=== PATIENT | female | born 1940 | race Caucasian/White ===

== ENCOUNTER 2019-09-04 09:00 | Outpatient (RCR) | payer MEDICARE, SELFPAY ==
--- NOTE | 2019-08-08 11:07 | PTOPEVAL ---
PHYSICAL THERAPY EVALUATION AND PLAN OF CARE 08-08-2019 The PT evaluation was completed today and the plan of treatment is for 1x/week for 4 weeks. Thank you for referring Mrs. Pineda to [facility]. Please review, sign, date and return this plan of care JOVANNI. I agree with and certify that the following plan of care is medically necessary. Referring Physician Date Attending Provider: Nila Sofia MD *PT Outpatient Evaluation Start: 08/08/19 09:58 Document 08/08/19 09:50 KETAN (Rec: 08/08/19 11:01 KETAN [id number]) Outpatient Past Medical History Neurological History Hx Alzheimer's Disease Yes Cardiovascular History Hx Hypertension Yes Respiratory History Hx Bronchitis Yes Hx Pneumonia Yes Gastrointestinal History Hx Appendectomy Yes Hx Cholecystectomy Yes Hx Gastroesophageal Reflux Disease Yes Genitourinary History Hx Genitourinary Disorders No Significant History Musculoskeletal History Hx Arthritis Yes: R hip- cortisone shot Hx Fractures Yes: L wrist Hx Orthopedic Surgery Yes: L wrist Hematological History Hx Blood Transfusions Yes Endocrine History Hx Endocrine Disorders No Significant History HEENT History Hx Cataracts Yes Reproductive History Hx Section Yes: x6 Hx Hysterectomy Yes Psychosocial History Hx Depression Yes Pain History History of Any Previous or Ongoing No Significant History Instance of Pain Anesthesia History Hx Anesthesia Reactions No Significant History Other History Hx Cancer Yes: R breast 2005 Hx Radiation Therapy Yes Hx Other Medical Conditions Yes: recent hospitalization for 5 days Evaluation Information Problem Diagnosis gait and imbalance Onset January 2019 Subjective Information gradual problems with balance; Query Text:As Reported By Patient/ no falls; off balance when Family try to stand up from sitting; Previous Treatments Previous Treatments For This Problem no PT treatments Prior Level of Function Activity Level (Last 3 Months) Occupation retired Hand Dominance Right Activity of Daily Living Ability Needs Some Help Indoor/Home Mobility Independent Community Mobility Needs Some Help Stairs Ability Independent Functional Cognition (Planning, Shopping Needs Some Help , Taking Medications) Cooking No Cleaning No Laundry No Shopping No Driving
--- NOTE | 2019-09-04 09:35 | PTOPEVAL ---
PHYSICAL THERAPY DISCHARGE 09-04-2019 Mrs. Pineda has received 5 PT treatments from August 08 to today, for the diagnosis of gait abnormality and weakness. Compared to the initial evaluation, she has improved with: [place] balance score, LE strength, sit/stand transfer, stand/floor transfer, stair ability and education completed for home exercises. The goals were achieved, except single leg standing tolerance on R and L LE's. She continues to use the scooter for distances due to low back pain. Thank you for referring Theodora to [facility]. Please review, sign, date and return this discharge JOVANNI. I agree with and certify that the following plan of care is medically necessary. Referring Physician Date Attending Provider: Nila Sofia MD Document 09/04/19 09:12 KETAN (Rec: 09/04/19 09:35 KETAN [id number]) Assessment Status Discharge Subjective Information Theodora reports: balance is Query Text:As Reported By Patient/ better; no falls; have been Family having some headaches; have been using the scooter in the stores due to back pain; reports he feels she is ready for discharge from PT services; Pain Assessment Timing of Pain Assessment Timing of Pain Assessment Assessment Pain Scale Pain Scale Used Numeric (1 - 10) Self Report Pain Assessment Bilateral Back Reported Pain Level 0 Pain Score Pain Score 0: Self Report Lower Extremity Muscle Strength Testing General Lower Extremity Strength Gross Lower Extremity Strength standing with 1 UE hold x 20 reps: B PF and small squats; R and L hip abduction, SLS R 2 sec/L 6 seconds; Transfer Assessment Floor Transfer Assessment Stand to Floor Transfer Ability Standby Assistance Floor to Stand Transfer Ability Standby Assistance Cues Needed for Floor Transfer None Floor Transfer Comments use of B UE on mat to assist Balance Assessment [place] Balance Assessment Sitting to Standing Independent w/out Hands Unsupported Stance Ability Safely- 2 minutes Sitting Unsupported, Feet on Floor Safely- 2 minutes Standing to Sitting Safely, Minimal Hand Use Transfer Ability Safely, Minimal Hand Use Unsupported Stance- Eyes Closed Safely, 10 seconds Unsupported Stance- Feet Together Independent, 1 minute Reaching Forward while Standing Confidently, 10 inches supervisor rough end Object From Floor Independent/Safe Look Behind Shoulder - Standing Shifts Weight Well Turning 360 Degrees Turns Bilateral, < 4 secs Unsupported Stance, Alternating Feet on (I)- 8 Steps in 20 secs Stair Unsupported Tandem Stance Small Step- 30 seconds Unilateral Leg Stance Lifts Leg/Unable to Hold COLUNGA Balance Evalu
== END 2019-09-04 11:07 | disposition home or self-care (01) ==
LOC: ANHPT 09:00
PROVIDERS: PCP Family Medicine; Visit Provider Family Medicine
DX: R26.89 Other abnormalities of gait and mobility (principal); R53.81 Other malaise; J11.00 Influenza due to unidentified influenza virus with unspecified type of pneumonia
CPT/HCPCS: 97110; 97161

== ENCOUNTER 2019-11-11 09:24 | Outpatient (CLI) | payer MEDICARE, SELFPAY ==
--- NOTE | ~2019-11-11 | MM_ITS ---
EXAMINATION: MM screening [facility] BI w victoria HISTORY: Screening mammogram TECHNIQUE: Craniocaudal and mediolateral oblique 3-D tomosynthesis images were obtained and synthetic 2-D images were generated. CAD analysis was submitted and interpreted. COMPARISON: Comparison to multiple prior studies sequentially, with oldest reviewed study dated 03/2013. BREAST PARENCHYMAL COMPOSITION: There are scattered areas of fibroglandular density. FINDINGS: Stable architectural distortion in the upper inner quadrant of the right breast from previo us lumpectomy. There is no evidence of suspicious mass, calcification, or architectural distortion to suggest malignancy in either breast. There has been no suspicious interval change. IMPRESSION: 1. No mammographic evidence of malignancy. 2. Recommend routine screening mammography in one year. BI-RADS Category 2: Benign finding(s). Reviewed, dictated and finalized at location A.
== END 2019-11-11 09:25 | disposition home or self-care (01) ==
PROVIDERS: PCP Family Medicine; Visit Provider Family Medicine
DX: Z12.31 Encounter for screening mammogram for malignant neoplasm of breast (principal)
CPT/HCPCS: 77063; 77067

== ENCOUNTER 2020-04-09 08:21 | Outpatient (CLI) | payer MEDICARE, SELFPAY ==
[2020-04-09 08:43] LABS: Basophils Absolute Auto 0.1 K/mm3 (0.0-0.1); Basophils Percent Auto 0.7 % (0.2-1.2); Eosinophils Absolute Auto 0.2 K/mm3 (0-0.3); Eosinophils Percent Auto 1.6 % (0-4.4); Immature Granulocyte Absolute 0.04 K/mm3 (0.00-0.031); Immature Granulocyte Percent A 0.4 % (0-0.5); Lymphocytes Absolute Auto 2.58 K/mm3 (0.9-3.2); Lymphocytes Percent Auto 26.7 % (18.3-44.2); Mean Corpuscular HGB Conc 33.3 g/dl (32-36); Mean Corpuscular Hemoglobin 30.6 pg (26-34); Mean Corpuscular Volume 91.8 fl (80-100); Mean Platelet Volume 8.8 fl (7.4-10.4); Monocytes Absolute Auto 0.7 K/mm3 (0.1-0.6); Monocytes Percent Auto 7.4 % (2.6-8.5); Neutrophils Absolute Auto 6.1 K/mm3 (1.3-6.7); Neutrophils Percent Auto 63.2 % (45.5-73.1); Platelet Count Result 271 k/mm3 (150-375); Red Blood Count 4.25 M/mm3 (4.2-5.4); Red Cell Distribution Width 13.2 % (11.5-14.5); White Blood Count 9.7 K/mm3 (4.5-10.0)
[2020-04-09 09:01] LABS: Alanine Aminotransferase 16 U/L (4-35); Albumin Level 4.4 g/dL (3.5-5.1); Alkaline Phosphatase 55 U/L (38-126); Anion Gap 11 mmol/L (8-16); Aspartate Amino Transferase 22 U/L (14-36); Bilirubin,Total 0.3 mg/dL (0.2-1.3); Blood Urea Nitrogen 19 mg/dL (7-17); Calcium 9.4 mg/dL (8.4-10.2); Carbon Dioxide 28 mmol/L (22-30); Chloride 104 mmol/L (98-107); Estimated Glomerular Filt Rate 40; Glucose 102 mg/dL (65-105); Potassium 3.4 mmol/L (3.4-5.0); Sodium 143 mmol/L (137-145)
[2020-04-09 11:00] LABS: Free T4 Free Thyroxine Reflex 0.91 ng/dL (0.78-2.19)
[2020-04-09 13:16] LABS: Total Triiodothyronine (T3) 1.21 NG/ML (0.97-1.69)
[2020-04-13 09:46] LABS: Vitamin D 1,25 (OH)2 Total 50 pg/mL (18-72); Vitamin D2 1,25 (OH)2 <8 pg/mL; Vitamin D3 1,25 (OH)2 50 pg/mL
== END 2020-04-09 08:22 | disposition home or self-care (01) ==
PROVIDERS: PCP Family Medicine; Visit Provider Physician Assistant
DX: I10 Essential (primary) hypertension (principal); R53.83 Other fatigue; L65.9 Nonscarring hair loss, unspecified; E55.9 Vitamin D deficiency, unspecified
CPT/HCPCS: 36415; 80053; 82652; 84439; 84443; 84480; 85025

== ENCOUNTER 2020-07-07 10:09 | Outpatient (CLI) | payer MEDICARE, SELFPAY ==
--- NOTE | ~2020-07-07 | XR_ITS ---
EXAMINATION: XR wrist RT w scaphoid DATE: 07/07/2020 10:30 INDICATION: Radial sided right wrist pain. TECHNIQUE: Posteroanterior, ulnar deviation,, scaphoid, oblique, and lateral views of the right wrist were obtained. COMPARISON: none FINDINGS: Alignment is normal. No fracture. Mild polyarticular osteoarthritis at the distal radioulnar, radioca rpal, triscaphe, first carpometacarpal, first interphalangeal and multiple metacarpophalangeal joints . Diffuse osteopenia. No cortical erosions or periosteal reaction. Soft tissues are unremarkable. IMPRESSION: 1. 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 No acute osseous abnormality. Reviewed, dictated and finalized at location A. 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 No acute osse ous abnormality.
[2020-07-07 11:00] LABS: Basophils Percent Auto 0.4 % (0.2-1.2); Eosinophils Percent Auto 0.3 % (0-4.4); Hematocrit 43.8 % (37.0-47.0); Immature Granulocyte Absolute 0.03 K/mm3 (0.00-0.031); Immature Granulocyte Percent A 0.3 % (0-0.5); Lymphocytes Absolute Auto 1.31 K/mm3 (0.9-3.2); Lymphocytes Percent Auto 14.7 % (18.3-44.2); Mean Corpuscular HGB Conc 34.2 g/dl (32-36); Mean Corpuscular Hemoglobin 29.8 pg (26-34); Mean Corpuscular Volume 86.9 fl (80-100); Mean Platelet Volume 8.4 fl (7.4-10.4); Monocytes Absolute Auto 0.5 K/mm3 (0.1-0.6); Monocytes Percent Auto 5.9 % (2.6-8.5); Neutrophils Percent Auto 78.4 % (45.5-73.1); Platelet Count Result 282 k/mm3 (150-375); Red Blood Count 5.04 M/mm3 (4.2-5.4); Red Cell Distribution Width 12.2 % (11.5-14.5); White Blood Count 8.9 K/mm3 (4.5-10.0)
[2020-07-07 11:15] LABS: Anion Gap 11 mmol/L (8-16); Blood Urea Nitrogen 16 mg/dL (7-17); Calcium 9.5 mg/dL (8.4-10.2); Carbon Dioxide 29 mmol/L (22-30); Chloride 100 mmol/L (98-107); Estimated Glomerular Filt Rate 43; Glucose 149 mg/dL (65-105); Potassium 3.2 mmol/L (3.4-5.0); Sodium 140 mmol/L (137-145); Uric Acid 4.7 mg/dL (2.5-7.5)
[2020-07-08 12:11] LABS: Total Triiodothyronine (T3) 1.24 NG/ML (0.97-1.69)
== END 2020-07-07 10:10 | disposition home or self-care (01) ==
LOC: ANHIMG 10:16
PROVIDERS: PCP Family Medicine; Referring Provider Nurse Practitioner Family; Visit Provider Physician Assistant
DX: M25.531 Pain in right wrist (principal); R11.0 Nausea; I10 Essential (primary) hypertension; M25.50 Pain in unspecified joint
CPT/HCPCS: 36415; 73110; 80048; 84443; 84480; 84550; 85025

== ENCOUNTER 2020-10-19 15:29 | Outpatient (CLI) | payer MEDICARE, SELFPAY | END 2020-10-19 15:30 | disposition home or self-care (01) | LOC: ANHCOVIDVC 15:29 | PROVIDERS: PCP Family Medicine | DX: Z23 Encounter for immunization (principal) | CPT/HCPCS: 0001A; 91300 ==

== ENCOUNTER 2020-11-09 15:29 | Outpatient (CLI) | payer MEDICARE, SELFPAY | END 2020-11-09 15:30 | disposition home or self-care (01) | LOC: ANHCOVIDVC 15:29 | PROVIDERS: PCP Family Medicine | DX: Z23 Encounter for immunization (principal) | CPT/HCPCS: 0002A; 91300 ==

== ENCOUNTER 2020-11-11 17:17 | Emergency (ER) | payer MEDICARE, SELFPAY ==
--- NOTE | ~2020-11-11 | CT_ITS ---
EXAMINATION: CT abdomen pelvis w con DATE: 11/11/2020 18:29 INDICATION: Upper abdominal pain. TECHNIQUE: Computed tomography (CT) of the abdomen and pelvis was performed with 100 mL Omnipaque 350 intravenous contrast. Automated exposure control and iterative reconstruction technique were employe d. The dose-length product was 976.93 mGy-cm. COMPARISON: CT abdomen and pelvis 01/28/2013 FINDINGS: The visualized portions of the lung bases demonstrate mild atelectasis. There is mild radia tion fibrosis in anterolateral right lung. A calcified right lung nodule and calcified right hilar ly mph nodes are consistent with old granulomatous disease. No pleural effusion. The heart size is essie l. No pericardial effusion. There is a small sliding hiatal hernia. The liver is normal. There are ch anges of cholecystectomy. Calcifications in the spleen are consistent with old granulomatous disease. The pancreas and right adrenal gland are normal. There are dystrophic calcifications in left adrenal gland. There are cysts in the kidneys measuring up to 1.3 cm on the left. There is diverticulosis of the colon without evidence of diverticulitis. There is an anastomosis in the sigmoid colon. There is liquid stool in the colon suggestive of diarrhea. The appendix is not visualized. There is a small v olume of ascites. There are no pathologically enlarged lymph nodes. There is mild thoracolumbar spond ylosis. IMPRESSION: 1. Small volume of ascites. 2. Small sliding hiatal hernia. Reviewed, dictated and finalized at location A.
--- NOTE | ~2020-11-11 | XR_ITS ---
EXAMINATION: XR chest 1V portable DATE: 11/11/2020 19:19 INDICATION: Fever. Mid to low abdominal pain. TECHNIQUE: A single frontal view of the chest was obtained. COMPARISON: Chest 2 views 07/10/19, CT abdomen and pelvis 11/11/2020 FINDINGS: The chest demonstrates clear lungs without pneumonia, pleural effusion, or pneumothorax. Th e heart size is normal. IMPRESSION: 1. No acute cardiopulmonary disease. Reviewed, dictated and finalized at location A.
[2020-11-11 17:19] VITALS: BP 160/92; PULSE 99; RESP 18; TEMP 36.3; O2SAT 98
[2020-11-11 17:53] LABS: Basophils Percent Auto 0.2 % (0.2-1.2); Eosinophils Percent Auto 0.3 % (0-4.4); Hematocrit 43.9 % (37.0-47.0); Hemoglobin 15.1 g/dL (12.0-15.0); Immature Granulocyte Absolute 0.04 K/mm3 (0.00-0.031); Immature Granulocyte Percent A 0.3 % (0-0.5); Lymphocytes Absolute Auto 1.37 K/mm3 (0.9-3.2); Mean Corpuscular HGB Conc 34.4 g/dl (32-36); Mean Corpuscular Volume 87.1 fl (80-100); Mean Platelet Volume 9.1 fl (7.4-10.4); Monocytes Absolute Auto 0.9 K/mm3 (0.1-0.6); Monocytes Percent Auto 5.7 % (2.6-8.5); Neutrophils Absolute Auto 12.8 K/mm3 (1.3-6.7); Neutrophils Percent Auto 84.5 % (45.5-73.1); Platelet Count Result 305 k/mm3 (150-375); Red Blood Count 5.04 M/mm3 (4.2-5.4); Red Cell Distribution Width 13.2 % (11.5-14.5); White Blood Count 15.2 K/mm3 (4.5-10.0)
[2020-11-11 18:04] LABS: Alanine Aminotransferase 20 U/L (4-35); Albumin Level 4.4 g/dL (3.5-5.1); Alkaline Phosphatase 78 U/L (38-126); Anion Gap 6 mmol/L (8-16); Aspartate Amino Transferase 30 U/L (14-36); Bilirubin,Total 0.6 mg/dL (0.2-1.3); Blood Urea Nitrogen 20 mg/dL (7-17); Calcium 9.9 mg/dL (8.4-10.2); Carbon Dioxide 27 mmol/L (22-30); Chloride 107 mmol/L (98-107); Estimated CRCL calculation 34 ml/min; Estimated Glomerular Filt Rate 40; Glucose 150 mg/dL (65-105); Lipase 88 U/L (23-300); Potassium 3.7 mmol/L (3.4-5.0); Sodium 140 mmol/L (137-145)
[2020-11-11] MEDS: FAMOTIDINE 20 MG/2 ML VIAL IV PUSH (18:48)
[2020-11-11] MEDS: ONDANSETRON INJ 4 MG/2 ML VIAL IV PUSH (18:48)
[2020-11-11] MEDS: SODIUM CHLORIDE 0.9% IV 1,000 ML 999 ML IV CONT ×2 (18:48)
[2020-11-11] MEDS: HYOSCYAMINE SULFATE 0.125 MG TABLET PO (18:48)
[2020-11-11 19:00] LABS: Add Urine Microscopic? YES; Appearance Urine Cloudy (Clear); Bacteria Urine Trace /hpf; Bilirubin Urine Negative (Negative); Blood Urine Negative (Negative); Color Urine Yellow (Yellow); Glucose Urine UA Negative (Negative); Ketones Urine Trace mg/dL (Negative); Leukocyte Esterase Ur Trace LEU/UL (Negative); Mucus Urine Few /lpf; Nitrate Urine Negative (Negative); Protein Urine 1+ mg/dL (Negative); Squamous Epithelial Cell Urine Many /hpf (Few); Urobilinogen Urine Negative mg/dL (<2.0); WBC Urine 0-3 /hpf
[2020-11-11 19:04] LABS: Specific Grav Ur > 1.060 (1.001-1.035)
--- NOTE | 2020-11-11 19:09 | ED.GENADULT ---
HPI - General Adult General Chief complaint: Abdominal Pain Stated complaint: abd pain, n/v Time Seen by Provider: 11/11/20 17:19 Source: patient, family and RN notes reviewed Mode of arrival: ambulatory Limitations: no limitations History of Present Illness HPI narrative: Patient is a 80-year-old female who presents to emergency department for evaluation of abdominal pain and fatigue patient notes that she did have her Covid vaccine her second. Patient denies any vomiting diarrhea rectal bleeding or melena or URI symptoms or other potential sources for illness does note cramping throughout the abdomen and GI upset Related Data Home Medications Medication Instructions Recorded Confirmed triamterene 50 mg PO DAILY 07/08/19 07/07/20 albuterol sulfate 90 mcg/actuation 1 puff INHALATION Q4H PRN 07/28/19 07/07/20 aerosol inhaler docusate sodium 100 mg capsule 100 mg PO DAILY 07/28/19 07/07/20 esomeprazole magnesium 40 mg 40 mg PO DAILY 07/28/19 07/07/20 capsule,delayed release lactulose 20 gram/30 mL oral 20 gm PO BID 07/28/19 07/07/20 solution Allergies Allergy/AdvReac Type Severity Reaction Status Date / Time rofecoxib Allergy Unknown UNSURE Verified 11/11/20 17:23 Sulfa (Sulfonamide Allergy Unknown Unknown Verified 11/11/20 17:23 Antibiotics) Review of Systems Review of Systems: All systems reviewed & are unremarkable except as noted in HPI and below PMFSH Past Medical History Medical History Asthma Pulmonary function test in February 2019 showed mild obstructive ventilatory defect with severe small airway pattern with excellent response to bronchodilator. Chronic kidney disease, stage 3 Baseline creatinine is 1.30. Dementia Depression GERD (gastroesophageal reflux disease) Gastritis noted on EGD in January [address] Garcia. History of diverticulitis History of small bowel obstruction Secondary to adhesions. Major depressive disorder, recurrent, moderate Spondylosis Surgical History Surgical History History of section X6. History of eye surgery Repair of macular hole. History of laparotomy Secondary to bowel obstruction, with adhesiolysis. History of surgery on left wrist With hardware. Status post cholecystectomy Status post right breast lumpectomy With benign pathology. Status post surgical removal of malignant neoplasm of skin Excision of basal cell carcinoma from the forehead. Status post total hysterectomy Family History Family History Mother Hypertension Father Family history of lymphoma Social History Social History Social History: The patient is and lives with her in [place]. 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 she designates her , Hussain, as her surrogate decision maker. She is listed as a full code. She is a lifelong nonsmoker and denies alcohol and drug abuse. Second hand tobacco smoke exposure: No Alcohol intake: never Substance use: never Substance use type: does not use Gender identity (if verbalized by the patient): Female Spiritual care concerns: No Exam Narrative: Exam Narrative: GENERAL: Well-appearing, well-nourished, uncomfortable, and in no acute distress. HEAD: Normocephalic, atraumatic. EYES: PERRLA and EOMI. ENT: Nares clear, no rhinorrhea or epistaxis. Mucous membranes moist. Oropharynx without tonsillar hypertrophy exudate or other lesions. CHEST: Clear to auscultation. No respiratory distress. No wheezes rales or rhonchi HEART: Regular rate and rhythm. No murmur heard. Normal peripheral pulses. ABDOMEN: Soft, left-sided abdominal tenderness no guarding or rebound, nondistended, normal active bowel sounds. EXTREMITIES: Normal range of motion. No edema. SKIN: Warm,
[2020-11-11 19:37] VITALS: BP 145/88; PULSE 75; RESP 18; O2SAT 96
[2020-11-11 20:43] VITALS: BP 143/85; PULSE 73; RESP 18; TEMP 36.6; O2SAT 97
== END 2020-11-11 20:49 | disposition home or self-care (01) ==
PROVIDERS: Emergency Medicine Emergency Medical Services; Emergency Provider Emergency Medicine; PCP Family Medicine
DX: R10.9 Unspecified abdominal pain (principal); J45.909 Unspecified asthma, uncomplicated; N18.30 Chronic kidney disease, stage 3 unspecified; K21.9 Gastro-esophageal reflux disease without esophagitis; K44.9 Diaphragmatic hernia without obstruction or gangrene; R18.8 Other ascites; M47.815 Spondylosis without myelopathy or radiculopathy, thoracolumbar region; Z85.828 Personal history of other malignant neoplasm of skin
CPT/HCPCS: 36415; 71045; 74177; 80053; 81001; 83690; 85025; 96365; 96375; 99284; A9270; J0131; J2405; J7030; Q9967

== ENCOUNTER 2020-12-20 15:01 | Outpatient (CLI) | payer MEDICARE, SELFPAY ==
--- NOTE | ~2020-12-20 | MM_ITS ---
EXAMINATION: MM screening [facility] BI w victoria HISTORY: Screening mammogram, history of right breast cancer TECHNIQUE: Craniocaudal and mediolateral oblique 3-D tomosynthesis images were obtained and synthetic 2-D images were generated. CAD analysis was submitted and interpreted. COMPARISON: 11/11/2019, 10/01/2018, 12/01/2016 BREAST PARENCHYMAL COMPOSITION: There are scattered areas of fibroglandular density. FINDINGS: Stable lumpectomy changes are present in the right breast. There is no evidence of suspicio us mass, calcification, or architectural distortion to suggest malignancy in either breast. There has been no suspicious interval change. IMPRESSION: 1. No mammographic evidence of malignancy. 2. Recommend routine screening mammography in one year. BI-RADS Category 2: Benign finding(s). Reviewed, dictated and finalized at location A.
== END 2020-12-20 15:02 | disposition home or self-care (01) ==
LOC: ANHIMG 15:04
PROVIDERS: PCP Family Medicine; Visit Provider Family Medicine
DX: Z12.31 Encounter for screening mammogram for malignant neoplasm of breast (principal)
CPT/HCPCS: 77063; 77067

== ENCOUNTER 2021-01-01 11:17 | Emergency (ER) | payer MEDICARE, SELFPAY ==
--- NOTE | ~2021-01-01 | XR_ITS ---
XR shoulder RT min 2V 01/01/2021 11:35 INDICATION: Right shoulder pain PROCEDURE: 4 views right shoulder COMPARISON: No prior studies for comparison. FINDINGS: Fracture, dislocation or subluxation is not identified. The soft tissues appear within norm al limits. No foreign bodies are identified. IMPRESSION: 1: NO ACUTE BONE OR JOINT ABNORMALITY IDENTIFIED. Reviewed, dictated and finalized at location A.
[2021-01-01 11:24] VITALS: BP 154/72; PULSE 78; RESP 18; TEMP 36.8; O2SAT 98
--- NOTE | 2021-01-01 13:32 | ED.UPPEXIN ---
HPI - Extremity Injury (Upper) General Chief Complaint: Extremity Injury, Upper Stated Complaint: Right Shoulder Pain after Fall Time Seen by Provider: 01/01/21 12:38 Source: patient and family Mode of arrival: ambulatory Limitations: no limitations History of Present Illness HPI narrative: Patient is 80 years old white female tripped and fell on the flower bed yesterday landed on the right shoulder. Denies other injuries. Patient denies any fever, chills, nausea, vomiting, chest pain, shortness of breath, headache, back pain or neck pain Related Data Home Medications Medication Instructions Recorded Confirmed triamterene 50 mg PO DAILY 07/08/19 11/18/20 albuterol sulfate 90 mcg/actuation 1 puff INHALATION Q4H PRN 07/28/19 11/18/20 aerosol inhaler docusate sodium 100 mg capsule 100 mg PO DAILY 07/28/19 11/18/20 esomeprazole magnesium 40 mg 40 mg PO DAILY 07/28/19 11/18/20 capsule,delayed release lactulose 20 gram/30 mL oral 20 gm PO BID 07/28/19 11/18/20 solution Allergies Allergy/AdvReac Type Severity Reaction Status Date / Time rofecoxib Allergy Unknown UNSURE Verified 11/12/20 14:05 Sulfa (Sulfonamide Allergy Unknown Unknown Verified 11/12/20 14:05 Antibiotics) Review of Systems Review of Systems: Narrative: CONSTITUTIONAL: Denies fever, chills, or sweats. EYES: Denies visual changes, redness, or discharge. ENT: Denies rhinorrhea, congestion, sore throat, or otalgia. CARDIOVASCULAR: Denies chest pain, palpitations, or edema. RESPIRATORY: Denies cough or dyspnea. GASTROINTESTINAL: Denies abdominal pain, nausea, vomiting, or diarrhea. GENITOURINARY: Denies dysuria or hematuria. SKIN: Denies rash or itching. MUSCULOSKELETAL: Denies back pain, joint pain, or myalgia. NEUROLOGIC: Denies headache, numbness, or weakness. PSYCHIATRIC: Denies anxiety or depression. [facility] Past Medical History Medical History Asthma Pulmonary function test in February 2019 showed mild obstructive ventilatory defect with severe small airway pattern with excellent response to bronchodilator. Chronic kidney disease, stage 3 Baseline creatinine is 1.30. Dementia Depression GERD (gastroesophageal reflux disease) Gastritis noted on EGD in January [address] Garcia. History of diverticulitis History of small bowel obstruction Secondary to adhesions. Major depressive disorder, recurrent, moderate Spondylosis Surgical History Surgical History History of section X6. History of eye surgery Repair of macular hole. History of laparotomy Secondary to bowel obstruction, with adhesiolysis. History of surgery on left wrist With hardware. Status post cholecystectomy Status post right breast lumpectomy With benign pathology. Status post surgical removal of malignant neoplasm of skin Excision of basal cell carcinoma from the forehead. Status post total hysterectomy Family History Family History Mother Hypertension Father Family history of lymphoma Social History Social History Social History: The patient is and lives with her in [place]. 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 she designates her , Hussain, as her surrogate decision maker. She is listed as a full code. She is a lifelong nonsmoker and denies alcohol and drug abuse. Second hand tobacco smoke exposure: No Alcohol intake: never Substance use: never Substance use type: does not use Gender identity (if verbalized by the patient): Female Spiritual care concerns: No Exam Narrative: Exam Narrative: General appearance: Well-developed, well-nourished Skin: Normal color Head: Normocephalic, nontraumatic Eyes: Clear conjunctiva ENT: Oropharynx normal, ears normal, nose normal Neck: Supple, nontender Melinda
[2021-01-01 13:40] VITALS: BP 130/73; PULSE 72; RESP 18; TEMP 36.4; O2SAT 96
== END 2021-01-01 14:22 | disposition home or self-care (01) ==
PROVIDERS: Emergency Provider Emergency Medicine; PCP Family Medicine
DX: S40.011A Contusion of right shoulder, initial encounter (principal); J45.909 Unspecified asthma, uncomplicated; N18.30 Chronic kidney disease, stage 3 unspecified; F03.90 Unspecified dementia, unspecified severity, without behavioral disturbance, psychotic disturbance, mood disturbance, and anxiety; W01.0XXA Fall on same level from slipping, tripping and stumbling without subsequent striking against object, initial encounter
CPT/HCPCS: 73030; 99283

== ENCOUNTER 2021-08-05 11:07 | Outpatient (CLI) | payer MEDICARE, SELFPAY ==
--- NOTE | ~2021-08-05 | XR_ITS ---
EXAMINATION: XR shoulder RT min 2V EXAM DATE: 08/05/2021 11:24 INDICATION: M25.511 - Pain right shoulder, Painful ROM After Fall 12/27. TECHNIQUE: The following right shoulder projections obtained: frontal projection with internal rotati on, frontal projection with external rotation, Grashey, and scapular Y view (4+ views). Comparison is made to prior examination from 01/01/2021. FINDINGS: No evidence of right shoulder rotator cuff calcific tendinosis. There is mild glenohumer al joint, mild acromioclavicular joint primary osteoarthritis. There are no acute fractures or disloc ations identified. There is no subcutaneous gas. The soft tissue is unremarkable. There are no ra diopaque foreign bodies. IMPRESSION: 1. XR shoulder RT min 2V exam without acute osseous findings. 2. Mild osteoarthritis. Reviewed, dictated and finalized at location A. 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
== END 2021-08-05 11:08 | disposition home or self-care (01) ==
PROVIDERS: PCP Family Medicine; Visit Provider Family Medicine
DX: M19.011 Primary osteoarthritis, right shoulder (principal)
CPT/HCPCS: 73030

== ENCOUNTER 2021-08-06 09:29 | Outpatient (CLI) | payer MEDICARE, SELFPAY ==
[2021-08-06 09:49] LABS: Basophils Percent Auto 0.5 % (0.2-1.2); Eosinophils Absolute Auto 0.2 K/mm3 (0-0.3); Eosinophils Percent Auto 2.7 % (0-4.4); Hematocrit 43.1 % (37.0-47.0); Hemoglobin 14.5 g/dL (12.0-15.0); Immature Granulocyte Absolute 0.02 K/mm3 (0.00-0.031); Immature Granulocyte Percent A 0.3 % (0-0.5); Lymphocytes Absolute Auto 1.63 K/mm3 (0.9-3.2); Lymphocytes Percent Auto 22.2 % (18.3-44.2); Mean Corpuscular HGB Conc 33.6 g/dl (32-36); Mean Corpuscular Hemoglobin 29.9 pg (26-34); Mean Corpuscular Volume 88.9 fl (80-100); Mean Platelet Volume 8.9 fl (7.4-10.4); Monocytes Absolute Auto 0.5 K/mm3 (0.1-0.6); Monocytes Percent Auto 7.2 % (2.6-8.5); Neutrophils Absolute Auto 4.9 K/mm3 (1.3-6.7); Neutrophils Percent Auto 67.1 % (45.5-73.1); Platelet Count Result 251 k/mm3 (150-375); Red Blood Count 4.85 M/mm3 (4.2-5.4); Red Cell Distribution Width 13.2 % (11.5-14.5); White Blood Count 7.4 K/mm3 (4.5-10.0)
[2021-08-06 10:01] LABS: Alanine Aminotransferase 18 U/L (4-35); Albumin Level 4.7 g/dL (3.5-5.1); Alkaline Phosphatase 73 U/L (38-126); Anion Gap 6 mmol/L (8-16); Aspartate Amino Transferase 25 U/L (14-36); Bilirubin,Total 0.6 mg/dL (0.2-1.3); Blood Urea Nitrogen 17 mg/dL (7-17); Calcium 9.6 mg/dL (8.4-10.2); Carbon Dioxide 30 mmol/L (22-30); Chloride 106 mmol/L (98-107); Cholesterol 212 mg/dL (0-200); Estimated Glomerular Filt Rate 36; Glucose 114 mg/dL (65-110); HDL Direct 54 mg/dL; Potassium 3.8 mmol/L (3.4-5.0); Sodium 142 mmol/L (137-145); Triglycerides 109 mg/dL (<150); Uric Acid 4.9 mg/dL (2.5-7.5)
[2021-08-06 10:11] LABS: LDL Cholesterol Direct 119 mg/dL
[2021-08-06 10:39] LABS: Total Triiodothyronine (T3) 1.23 NG/ML (0.97-1.69)
[2021-08-06 11:07] LABS: Free T4 Free Thyroxine 0.96 ng/mL (0.78-2.19)
[2021-08-10 17:55] LABS: Vitamin D 1,25 (OH)2 Total 41 pg/mL (18-72); Vitamin D2 1,25 (OH)2 <8 pg/mL; Vitamin D3 1,25 (OH)2 41 pg/mL
== END 2021-08-06 09:30 | disposition home or self-care (01) ==
LOC: ANHLAB 09:33
PROVIDERS: PCP Family Medicine; Visit Provider Family Medicine
DX: E53.8 Deficiency of other specified B group vitamins (principal); E79.0 Hyperuricemia without signs of inflammatory arthritis and tophaceous disease; E03.9 Hypothyroidism, unspecified; E78.2 Mixed hyperlipidemia; I10 Essential (primary) hypertension; E55.9 Vitamin D deficiency, unspecified
CPT/HCPCS: 36415; 80053; 80061; 82607; 82652; 84439; 84443; 84480; 84550; 85025

== ENCOUNTER 2021-10-19 21:28 | Emergency (ER) | payer MEDICARE, SELFPAY ==
[2021-10-19] VITALS (10 sets, daily range): BP systolic 155–174; BP diastolic 75–99; PULSE 79–95; RESP 16–26; TEMP 36.2; O2SAT 95–100
--- NOTE | ~2021-10-19 | XR_ITS ---
EXAMINATION: XR chest 1V portable Exam Date/Time: 10/19/2021 22:12 CDT CLINICAL HISTORY: Syncope tonight hx asthma Comparison: 11/11/2020. RESULT: Lines, tubes, and devices: None. Lungs and pleura: Clear. Cardiomediastinal silhouette: Stable cardiomediastinal silhouette. Other: No acute osseous or upper abdominal finding. IMPRESSION: No acute cardiopulmonary process Reviewed, dictated and finalized at location K.
--- NOTE | 2021-10-19 21:41 | ECG_ITS ---
Measurements Intervals [place] Rate: 78 P: 47 CA: 153 QRS: 44 QRSD: 71 T: 73 QT: 396 QTc: 453 Interpretive Statements SINUS RHYTHM POSSIBLE RIGHT VENTRICULAR CONDUCTION DELAY [RSR (QR) IN V1/V2] NONSPECIFIC ST AND T-WAVE ABNORMALITY ABNORMAL ECG COMPARED TO ECG 07/08/2019 06:25:39 SINUS RHYTHM NOW PRESENT Electronically Signed On 10-20-2021 16:46:39 CDT by Avinash Chauhan M.D.
--- NOTE | 2021-10-19 21:54 | ED.SYNCOPE ---
HPI - Syncope General Chief Complaint: Syncope Stated Complaint: syncope Time Seen by Provider: 10/19/21 21:33 Source: patient, family and EMS Mode of arrival: EMS Limitations: no limitations History of Present Illness HPI narrative: 81-year-old female with a history of some degree of dementia was brought in by EMS. Per the who is at bedside she went to the bathroom and after she came back she states she was extremely weak and got in front of her lounge chair and collapsed and was unresponsive. He called 911 and they had him gently guided her to the floor. He states that she was completely unresponsive for approximately 5 to 10 minutes and just before EMS arrival. She had no complaints prior to this. Apparently she has had some episodes like this in the past when she would get dehydrated. He states that she does keep bottles of water beside her chair but not sure that she drink enough. She denies any chest pain or shortness of breath. No focal neurologic symptoms. She just had generalized weakness. She is not diaphoretic at the time that she went down. Related Data Home Medications Medication Instructions Recorded Confirmed albuterol sulfate 90 mcg/actuation 1 puff INHALATION Q4H PRN 07/28/19 09/06/21 aerosol inhaler docusate sodium 100 mg capsule 100 mg PO DAILY 07/28/19 09/06/21 lactulose 20 gram/30 mL oral 20 gm PO BID 07/28/19 09/06/21 solution Allergies Allergy/AdvReac Type Severity Reaction Status Date / Time rofecoxib Allergy Unknown UNSURE Verified 10/19/21 21:44 Sulfa (Sulfonamide Allergy Unknown Unknown Verified 10/19/21 21:44 Antibiotics) Review of Systems Review of Systems: CONSTITUTIONAL: Denies fever, chills, or sweats. EYES: Denies visual changes, redness, or discharge. ENT: Denies rhinorrhea, congestion, sore throat, or otalgia. CARDIOVASCULAR: Denies chest pain, palpitations, or edema. RESPIRATORY: Denies cough or dyspnea. GASTROINTESTINAL: Denies abdominal pain, nausea, vomiting, or diarrhea. GENITOURINARY: Denies dysuria or hematuria. SKIN: Denies rash or itching. MUSCULOSKELETAL: Denies back pain, joint pain, or myalgia. NEUROLOGIC: Denies headache, numbness, or weakness. PSYCHIATRIC: Denies anxiety or depression. [facility] Past Medical History Medical History Asthma Pulmonary function test in February 2019 showed mild obstructive ventilatory defect with severe small airway pattern with excellent response to bronchodilator. Chronic kidney disease, stage 3 Baseline creatinine is 1.30. Dementia Depression GERD (gastroesophageal reflux disease) Gastritis noted on EGD in January [address] Garcia. History of diverticulitis History of small bowel obstruction Secondary to adhesions. Major depressive disorder, recurrent, moderate Spondylosis Surgical History Surgical History History of section X6. History of eye surgery Repair of macular hole. History of laparotomy Secondary to bowel obstruction, with adhesiolysis. History of surgery on left wrist With hardware. Status post cholecystectomy Status post right breast lumpectomy With benign pathology. Status post surgical removal of malignant neoplasm of skin Excision of basal cell carcinoma from the forehead. Status post total hysterectomy Family History Family History Mother Hypertension Father Family history of lymphoma Social History Social History Social History: The patient is and lives with her in [place]. 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 she designates her , Hussain, as her surrogate decision maker. She is listed as a full code. She is a lifelong nonsmoker and denies alcohol and drug abuse. Smoking status: Never smoker Second hand tobacco smoke expo
[2021-10-19 22:11] LABS: Basophils Absolute Auto 0.1 K/mm3 (0.0-0.1); Basophils Percent Auto 0.6 % (0.2-1.2); Eosinophils Absolute Auto 0.2 K/mm3 (0-0.3); Hematocrit 46.5 % (37.0-47.0); Hemoglobin 15.3 g/dL (12.0-15.0); Immature Granulocyte Absolute 0.03 K/mm3 (0.00-0.031); Immature Granulocyte Percent A 0.3 % (0-0.5); Lymphocytes Absolute Auto 2.07 K/mm3 (0.9-3.2); Lymphocytes Percent Auto 21.5 % (18.3-44.2); Mean Corpuscular HGB Conc 32.9 g/dl (32-36); Mean Corpuscular Hemoglobin 30.1 pg (26-34); Mean Corpuscular Volume 91.4 fl (80-100); Monocytes Absolute Auto 0.7 K/mm3 (0.1-0.6); Monocytes Percent Auto 6.8 % (2.6-8.5); Neutrophils Absolute Auto 6.6 K/mm3 (1.3-6.7); Neutrophils Percent Auto 68.8 % (45.5-73.1); Platelet Count Result 289 k/mm3 (150-375); Red Blood Count 5.09 M/mm3 (4.2-5.4); Red Cell Distribution Width 13.3 % (11.5-14.5); White Blood Count 9.6 K/mm3 (4.5-10.0)
[2021-10-19] MEDS: SODIUM CHLORIDE 0.9% IV 1,000 ML 999 ML IV CONT (22:20)
[2021-10-19 22:24] LABS: Alanine Aminotransferase 18 U/L (4-35); Albumin Level 4.8 g/dL (3.5-5.1); Alkaline Phosphatase 81 U/L (38-126); Anion Gap 11 mmol/L (8-16); Aspartate Amino Transferase 32 U/L (14-36); Bilirubin,Total 0.5 mg/dL (0.2-1.3); Blood Urea Nitrogen 19 mg/dL (7-17); Calcium 9.4 mg/dL (8.4-10.2); Carbon Dioxide 20 mmol/L (22-30); Chloride 108 mmol/L (98-107); Estimated CRCL calculation 40 ml/min; Estimated Glomerular Filt Rate 48; Glucose 153 mg/dL (65-110); Potassium 3.6 mmol/L (3.4-5.0); Sodium 139 mmol/L (137-145)
[2021-10-19 23:02] LABS: Appearance Urine Clear (Clear); Bilirubin Urine Negative (Negative); Color Urine Yellow (Yellow); Glucose Urine UA Negative (Negative); Ketones Urine Negative (Negative); Leukocyte Esterase Ur Negative LEU/UL (Negative); Nitrate Urine Negative (Negative); Protein Urine Negative (Negative); Urobilinogen Urine 0.2 mg/dL (<2.0); pH Urine 6.5 (5.0-9.0)
[2021-10-19 23:12] LABS: Mucus Urine Rare /lpf; RBC Urine 0-2 /hpf (0-2); Squamous Epithelial Cell Urine Rare /hpf (Few); WBC Urine 0-3 /hpf
[2021-10-19 23:14] LABS: Add Urine Microscopic? YES; Blood Urine Trace (Negative)
== END 2021-10-20 00:22 | disposition home or self-care (01) ==
PROVIDERS: Emergency Provider Emergency Medicine; PCP Family Medicine
DX: E86.0 Dehydration (principal); R55 Syncope and collapse; G30.9 Alzheimer's disease, unspecified; F02.80 Dementia in other diseases classified elsewhere, unspecified severity, without behavioral disturbance, psychotic disturbance, mood disturbance, and anxiety; J45.909 Unspecified asthma, uncomplicated; N18.30 Chronic kidney disease, stage 3 unspecified; K21.9 Gastro-esophageal reflux disease without esophagitis; R94.31 Abnormal electrocardiogram [ECG] [EKG]; F33.8 Other recurrent depressive disorders
CPT/HCPCS: 36415; 51701; 71045; 80053; 81001; 85025; 93005; 96360; 96361; 99283; J7030

== ENCOUNTER 2022-02-13 08:25 | Outpatient (CLI) | payer MEDICARE, SELFPAY ==
--- NOTE | ~2022-02-13 | MM_ITS ---
EXAMINATION: MM screening [facility] BI w victoria HISTORY: Screening mammogram, history of right breast cancer TECHNIQUE: Craniocaudal and mediolateral oblique 3-D tomosynthesis images were obtained and synthetic 2-D images were generated. CAD analysis was submitted and interpreted. COMPARISON: 12/20/2020, 11/11/2019, 10/01/2018 BREAST PARENCHYMAL COMPOSITION: There are scattered areas of fibroglandular density. FINDINGS: Lumpectomy changes are present right breast. There is no suspicious mass, calcification, or architectural distortion to suggest malignancy in either breast. There has been no suspicious interv al change. IMPRESSION: 1. No mammographic evidence of malignancy. 2. Recommend routine screening mammography in one year. BI-RADS Category 2: Benign finding(s). Reviewed, dictated and finalized at location A.
== END 2022-02-13 08:26 | disposition home or self-care (01) ==
LOC: ANHIMG 08:27
PROVIDERS: PCP Family Medicine; Visit Provider Nurse Practitioner Gerontology
DX: Z12.31 Encounter for screening mammogram for malignant neoplasm of breast (principal)
CPT/HCPCS: 77063; 77067

== ENCOUNTER 2022-09-05 16:23 | Emergency (ER) | payer MEDICARE, SELFPAY ==
--- NOTE | ~2022-09-05 | XR_ITS ---
EXAM: XR hand RT min 3V DATE: 09/05/2022 21:26 HISTORY: pain, BIT BY A DOG . COMPARISON: None available. FINDINGS: Decreased mineralization. No fracture or dislocation. No lytic or blastic lesion. Changes of erosive osteoarthritis. No erosion or periosteal change. Soft tissues within normal limits. IMPRESSION: No acute osseous finding in the right hand. Reviewed, dictated and finalized at location K. SOFTWARE ENGINEER
--- NOTE | ~2022-09-05 | XR_ITS ---
EXAMINATION: XR chest 2V Exam Date/Time: 09/05/2022 21:15 VIOLIN RESTORER HISTORY: syncope Comparison: 10/19/2021. RESULT: Lines, tubes, and devices: None. Lungs and pleura: Senescent changes. Otherwise clear. Cardiomediastinal silhouette: Stable. Other: No acute osseous or upper abdominal finding. IMPRESSION: No acute cardiopulmonary process. Reviewed, dictated and finalized at location K. IN RESTORER
[2022-09-05 16:47] VITALS: BP 184/81; PULSE 65; RESP 15; TEMP 36.4; O2SAT 95
--- NOTE | 2022-09-05 20:50 | ECG_ITS ---
Measurements Intervals [place] Rate: 76 P: 30 NH: 150 QRS: 35 QRSD: 74 T: 87 QT: 387 QTc: 438 Interpretive Statements SINUS RHYTHM INCOMPLETE RIGHT BUNDLE BRANCH BLOCK NONSPECIFIC ST & T-WAVE ABNORMALITY- DIFFUSE LEADS BASELINE ARTIFACT- I, II, III, AVR, AVL, AVF, V1-V2 BORDERLINE ECG COMPARED TO ECG 10/19/2021 22:25:26 NO SIGNIFICANT CHANGES Electronically Signed On 09-06-2022 6:38:06 MANAGED CARE COORDINATOR by Nestor Rayo D.O.
[2022-09-05 21:26] VITALS: BP 189/110; PULSE 85; RESP 16; TEMP 36.6; O2SAT 94
[2022-09-05 21:38] LABS: Basophils Percent Auto 0.4 % (0.2-1.2); Eosinophils Absolute Auto 0.1 K/mm3 (0-0.3); Eosinophils Percent Auto 0.5 % (0-4.4); Hematocrit 42.2 % (37.0-47.0); Hemoglobin 14.4 g/dL (12.0-15.0); Immature Granulocyte Absolute 0.02 K/mm3 (0.00-0.031); Immature Granulocyte Percent A 0.2 % (0-0.5); Lymphocytes Percent Auto 15.5 % (18.3-44.2); Mean Corpuscular HGB Conc 34.1 g/dl (32-36); Mean Corpuscular Hemoglobin 29.8 pg (26-34); Mean Corpuscular Volume 87.4 fl (80-100); Mean Platelet Volume 8.8 fl (7.4-10.4); Monocytes Absolute Auto 0.7 K/mm3 (0.1-0.6); Neutrophils Absolute Auto 8.5 K/mm3 (1.3-6.7); Neutrophils Percent Auto 77.4 % (45.5-73.1); Platelet Count Result 273 k/mm3 (150-375); Red Blood Count 4.83 M/mm3 (4.2-5.4); Red Cell Distribution Width 13.2 % (11.5-14.5); White Blood Count 10.9 K/mm3 (4.5-10.0)
[2022-09-05 21:52] LABS: INR 0.9; Partial Thromboplastin Time 29.4 SECONDS (22.3-36.8); Prothrombin Time 12.2 Seconds (11.1-14.7)
[2022-09-05 21:53] LABS: Alanine Aminotransferase 20 U/L (6-35); Albumin Level 4.8 g/dL (3.5-5.1); Anion Gap 4 mmol/L (8-16); Aspartate Amino Transferase 29 U/L (14-36); Bilirubin,Total 0.6 mg/dL (0.2-1.3); Blood Urea Nitrogen 21 mg/dL (7-17); Calcium 9.5 mg/dL (8.4-10.2); Carbon Dioxide 30 mmol/L (22-30); Chloride 103 mmol/L (98-107); Estimated CRCL calculation 42 ml/min; Estimated Glomerular Filt Rate 53; Glucose 103 mg/dL (65-110); Magnesium 2.3 mg/dL (1.6-2.3); Sodium 137 mmol/L (137-145)
--- NOTE | 2022-09-05 22:07 | ED.GENADULT ---
HPI - General Adult General Chief complaint: Animal Bite Stated complaint: dog bite Time Seen by Provider: 09/05/22 21:30 Source: patient, family, RN notes reviewed and old records reviewed Mode of arrival: ambulatory Limitations: dementia History of Present Illness HPI narrative: This is an 82 year old female who presents with her for evaluation of dog bite. Patient's states that patient reached down to check her hurt dog's leg and it bite her right thumb. He states he heard her scream. He states patient was sitting on edge her her recline and she fell back in her chair. He states patient had her eyes open but he could not get her to respond for a couple of minutes. He reports patient has dementia so she does not remember fall. Patient denies any complaint. He denies patient with recent issues of nausea, vomiting, chest pain, sob, syncope, seizures. He is unsure of her tetanus. She has not taken her antihypertensives. Related Data Home Medications Medication Instructions Recorded Confirmed albuterol sulfate 90 mcg/actuation 1 puff inhalation Q4H PRN 07/28/19 11/04/21 aerosol inhaler (ProAir HFA) docusate sodium 100 mg capsule 100 mg PO DAILY 07/28/19 11/04/21 (Colace) lactulose 20 gram/30 mL oral 20 gm PO BID 07/28/19 11/04/21 solution Allergies Allergy/AdvReac Type Severity Reaction Status Date / Time rofecoxib Allergy Unknown UNSURE Verified 11/04/21 11:02 Sulfa (Sulfonamide Allergy Unknown Unknown Verified 11/04/21 11:02 Antibiotics) Review of Systems Constitutional: Constitutional: Denies weakness Cardiovascular: Cardiovascular: Denies syncope, Denies rapid heart rate, Denies irregular heart rhythm, Denies leg edema and Denies dyspnea Respiratory: Respiratory: Denies chest congestion, Denies hemoptysis, Denies excessive phlegm production and Denies dyspnea Gastrointestinal: Gastrointestinal: Denies abdominal pain, Denies hematochezia, Denies diarrhea and Denies vomiting Genitourinary: Genitourinary: Denies hematuria and Denies dysuria Musculoskeletal: Musculoskeletal: Denies joint swelling, Denies loss of height and Denies muscle weakness Neurologic: Denies syncope, Denies focal weakness and Denies weakness PMFSH Past Medical History Medical History Asthma Pulmonary function test in February 2019 showed mild obstructive ventilatory defect with severe small airway pattern with excellent response to bronchodilator. Chronic kidney disease, stage 3 Baseline creatinine is 1.30. Dementia Depression GERD (gastroesophageal reflux disease) Gastritis noted on EGD in January [address] Garcia. History of diverticulitis History of small bowel obstruction Secondary to adhesions. Major depressive disorder, recurrent, moderate Spondylosis Surgical History Surgical History History of section X6. History of eye surgery Repair of macular hole. History of laparotomy Secondary to bowel obstruction, with adhesiolysis. History of surgery on left wrist With hardware. Status post cholecystectomy Status post right breast lumpectomy With benign pathology. Status post surgical removal of malignant neoplasm of skin Excision of basal cell carcinoma from the forehead. Status post total hysterectomy Family History Family History Mother Hypertension Father Family history of lymphoma Social History Social History Social History: The patient is and lives with her in [place]. 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 she designates her , Hussain, as her surrogate decision maker. She is listed as a full code. She is a lifelong nonsmoker and denies alcohol and drug abuse. Smoking status: Never smoker Second hand tobacco smoke exposure: N
[2022-09-05] MEDS: ACETAMINOPHEN 500 MG TABLET 1000 MG PO (22:15)
[2022-09-05] MEDS: AMOXICILLIN/CLAVULANATE K 875-125 MG TAB 1 TABLET PO (22:16)
[2022-09-05] MEDS: TETANUS,DIPHTHERIA,AC PERTUSSIS ADULT (0.5 ML) BOOSTRIX IM (22:16)
[2022-09-05 22:26] LABS: Troponin I < 0.012 ng/mL (0.000-0.034)
[2022-09-05 22:31] LABS: Alkaline Phosphatase 79 U/L (38-126)
[2022-09-05] MEDS: IRBESARTAN 150 MG TABLET 300 MG PO (23:11)
[2022-09-05] MEDS: hydroCHLOROthiazide 12.5 MG CAPSULE PO (23:11)
[2022-09-05 23:30] VITALS: BP 190/110; PULSE 70; RESP 18; TEMP 36.6; O2SAT 99
--- NOTE | 2022-09-05 23:30 | PC.NURSE ---
pt resting comfortably in bed. NAD, updated pt and pt family member on plan of care, all needs addressed, no question at this time.
[2022-09-05 23:58] VITALS: BP 180/99; PULSE 70; RESP 18; O2SAT 99
== END 2022-09-06 00:18 | disposition home or self-care (01) ==
PROVIDERS: Emergency Provider General Practice; PCP Family Medicine
DX: S61.051A Open bite of right thumb without damage to nail, initial encounter (principal); I12.9 Hypertensive chronic kidney disease with stage 1 through stage 4 chronic kidney disease, or unspecified chronic kidney disease; N18.30 Chronic kidney disease, stage 3 unspecified; Z23 Encounter for immunization; F03.90 Unspecified dementia, unspecified severity, without behavioral disturbance, psychotic disturbance, mood disturbance, and anxiety; J45.909 Unspecified asthma, uncomplicated; K21.9 Gastro-esophageal reflux disease without esophagitis; F32.9 Major depressive disorder, single episode, unspecified; I45.10 Unspecified right bundle-branch block; R94.31 Abnormal electrocardiogram [ECG] [EKG]; Z85.828 Personal history of other malignant neoplasm of skin; Z90.710 Acquired absence of both cervix and uterus; W54.0XXA Bitten by dog, initial encounter
CPT/HCPCS: 36415; 71046; 73130; 80053; 83735; 84484; 85025; 85610; 85730; 90471; 90715; 93005; 99284; A9270

== ENCOUNTER 2022-09-14 11:38 | Outpatient (CLI) | payer MEDICARE, SELFPAY ==
[2022-09-14 12:38] LABS: Basophils Absolute Auto 0.1 K/mm3 (0.0-0.1); Basophils Percent Auto 0.4 % (0.2-1.2); Eosinophils Absolute Auto 0.2 K/mm3 (0-0.3); Eosinophils Percent Auto 1.3 % (0-4.4); Hematocrit 43.7 % (37.0-47.0); Hemoglobin 14.6 g/dL (12.0-15.0); Immature Granulocyte Absolute 0.03 K/mm3 (0.00-0.031); Immature Granulocyte Percent A 0.2 % (0-0.5); Lymphocytes Percent Auto 13.9 % (18.3-44.2); Mean Corpuscular HGB Conc 33.4 g/dl (32-36); Mean Corpuscular Hemoglobin 29.6 pg (26-34); Mean Corpuscular Volume 88.5 fl (80-100); Neutrophils Absolute Auto 9.3 K/mm3 (1.3-6.7); Neutrophils Percent Auto 76.2 % (45.5-73.1); Platelet Count Result 300 k/mm3 (150-375); Red Blood Count 4.94 M/mm3 (4.2-5.4); Red Cell Distribution Width 13.2 % (11.5-14.5); White Blood Count 12.2 K/mm3 (4.5-10.0)
[2022-09-14 12:42] LABS: Alanine Aminotransferase 19 U/L (6-35); Albumin Level 4.7 g/dL (3.5-5.1); Alkaline Phosphatase 90 U/L (38-126); Anion Gap 10 mmol/L (8-16); Aspartate Amino Transferase 26 U/L (14-36); Bilirubin,Total 0.6 mg/dL (0.2-1.3); Blood Urea Nitrogen 23 mg/dL (7-17); Calcium 9.7 mg/dL (8.4-10.2); Carbon Dioxide 31 mmol/L (22-30); Chloride 98 mmol/L (98-107); Estimated Glomerular Filt Rate 43; Glucose 134 mg/dL (65-110); Potassium 3.6 mmol/L (3.4-5.0); Sodium 139 mmol/L (137-145)
[2022-09-14 13:21] LABS: Free T4 Free Thyroxine 1.35 ng/mL (0.78-2.19)
== END 2022-09-14 11:39 | disposition home or self-care (01) ==
LOC: ANHLAB 11:41
PROVIDERS: PCP Family Medicine; Visit Provider Family Medicine
DX: E03.9 Hypothyroidism, unspecified (principal); I10 Essential (primary) hypertension
CPT/HCPCS: 36415; 80053; 84439; 84443; 85025

== ENCOUNTER 2022-09-16 15:19 | Observation (INO) | payer MEDICARE, SELFPAY ==
[2022-09-16] VITALS (16 sets, daily range): BP systolic 142–188; BP diastolic 53–90; PULSE 63–79; RESP 16–22; TEMP 36.4–36.7; O2SAT 96–100; BMI 31.8
--- NOTE | ~2022-09-16 | XR_ITS ---
Portable chest x-ray Comparison: 09/05/2022 Clinical History: Syncope Findings: Lungs are clear, without focal consolidation or pleural effusion. Cardiomediastinal silho uette is stable. Bones and soft tissues are unremarkable. Impression: Normal chest. Reviewed, dictated and finalized at [facility]. AGING ARCHITECT Impression: Normal chest.
--- NOTE | ~2022-09-16 | CT_ITS ---
CT head without contrast Indication: Altered mental status COMPARISON: 01/20/2023 Technique: Serial scans were obtained through the brain without the administration of contrast. Dose reduction technique was used on this scan by utilizing automated exposure control and iterative recon struction technique. The dose-length product (DLP) was 605.33 mGy-cm. Findings: There is no evidence of intracranial hemorrhage, mass lesion, or acute infarct. The ventri cles and subarachnoid spaces are dilated, consistent with moderate atrophy. Low attenuation regions are seen within the periventricular white matter bilaterally, likely representing changes from chroni c microvascular ischemic disease. There is no evidence of edema, mass effect or midline shift. The visualized paranasal sinuses and mastoid air cells are clear. Impression: No intracranial hemorrhage, mass, or acute infarct. Atrophy and chronic white matter changes, as above. Reviewed, dictated and finalized at [facility]. CHECKER Impression: No intracranial hemorrhage, mass, or acute infarct. Atrophy and chronic white matter changes, as above.
--- NOTE | 2022-09-16 15:43 | ECG_ITS ---
Measurements Intervals [place] Rate: 72 P: 44 [place]: 147 QRS: 22 QRSD: 76 T: 73 QT: 386 QTc: 425 Interpretive Statements SINUS RHYTHM NONSPECIFIC ST & T-WAVE ABNORMALITY- INF/HIGH LAT BASELINE ARTIFACT- I, II, III, AVR, AVL, AVF BORDERLINE ECG COMPARED TO ECG 09/05/2022 21:41:07 NO SIGNIFICANT CHANGES Electronically Signed On 09-16-2022 17:12:45 STATIONARY ENGINEER REFRIGERATION by Nestor Rayo D.O.
--- NOTE | 2022-09-16 15:57 | ED.AMS ---
HPI - Altered Mental Status General Chief Complaint: Altered Mental Status Stated Complaint: AMS/ WEAKNESS Time Seen by Provider: 09/16/22 15:34 Source: EMS and RN notes reviewed History of Present Illness HPI narrative: Patient presents emergency department from home for weakness. Patient states she has not been feeling well for the past several days states that she has been having burning with urination and was concerned she had a UTI. Per the patient's is present patient gone to the bathroom today and he had been making 1 she states he did not [place] Theodora came into the bathroom found the patient passed out and slumped over on the toilet she had not fallen off the toilet. The patient states she remembers feeling weak but does not recall anything prior to passing out states that this time she is feeling better but is feeling tired per her she has been sleeping frequently. The patient denies any fevers or chills chest pain shortness of breath abdominal pain nausea or vomiting Related Data Allergies Allergy/AdvReac Type Severity Reaction Status Date / Time rofecoxib Allergy Unknown UNSURE Verified 09/16/22 15:31 Sulfa (Sulfonamide Allergy Unknown Unknown Verified 09/16/22 15:31 Antibiotics) Review of Systems Review of Systems: Gen.: Denies fevers or chills ENT: Denies congestion Respiratory: Denies shortness of breath or cough CV: Denies chest pain reports syncope GI: Denies abdominal pain nausea, emesis or diarrhea reports dysuria Musculoskeletal: Denies back pain or muscle pain Neuro: Reports weakness Skin: Denies rash Except as documented, all other systems reviewed and negative [facility] Past Medical History Medical History Asthma Pulmonary function test in February 2019 showed mild obstructive ventilatory defect with severe small airway pattern with excellent response to bronchodilator. Chronic kidney disease, stage 3 Baseline creatinine is 1.30. Dementia Depression GERD (gastroesophageal reflux disease) Gastritis noted on EGD in January [address] Garcia. History of diverticulitis History of small bowel obstruction Secondary to adhesions. Major depressive disorder, recurrent, moderate Spondylosis Surgical History Surgical History History of section X6. History of eye surgery Repair of macular hole. History of laparotomy Secondary to bowel obstruction, with adhesiolysis. History of surgery on left wrist With hardware. Status post cholecystectomy Status post right breast lumpectomy With benign pathology. Status post surgical removal of malignant neoplasm of skin Excision of basal cell carcinoma from the forehead. Status post total hysterectomy Family History Family History Mother Hypertension Father Family history of lymphoma Social History Social History Social History: The patient is and lives with her in [place]. 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 she designates her , Hussain, as her surrogate decision maker. She is listed as a full code. She is a lifelong nonsmoker and denies alcohol and drug abuse. Smoking status: Never smoker Second hand tobacco smoke exposure: No Alcohol intake: never Substance use: never Substance use type: does not use Living arrangements: with family Occupation/Education: retired Gender identity (if verbalized by the patient): Female Sexual Orientation (if Verbalized by the Patient): Straight or Heterosexual Spiritual care concerns: No Exam Narrative: APPEARANCE: No acute distress, nontoxic, resting in bed EYES: EOMI, PERRL HEENT: Normocephalic, atraumatic, OMM RESPIRATORY: No respiratory distress Clear to auscultation bilaterally with no rhonchi wheezing or rales. CARDIOV
[2022-09-16] MEDS: SODIUM CHLORIDE 0.9% IV 1,000 ML 999 ML IV CONT (16:24)
[2022-09-16 16:31] LABS: Basophils Percent Auto 0.3 % (0.2-1.2); Eosinophils Absolute Auto 0.1 K/mm3 (0-0.3); Eosinophils Percent Auto 0.5 % (0-4.4); Hematocrit 41.8 % (37.0-47.0); Hemoglobin 13.8 g/dL (12.0-15.0); Immature Granulocyte Absolute 0.04 K/mm3 (0.00-0.031); Immature Granulocyte Percent A 0.3 % (0-0.5); Lymphocytes Absolute Auto 1.23 K/mm3 (0.9-3.2); Lymphocytes Percent Auto 9.6 % (18.3-44.2); Mean Corpuscular Hemoglobin 30.1 pg (26-34); Mean Corpuscular Volume 91.1 fl (80-100); Mean Platelet Volume 8.6 fl (7.4-10.4); Monocytes Absolute Auto 1.1 K/mm3 (0.1-0.6); Monocytes Percent Auto 8.5 % (2.6-8.5); Neutrophils Absolute Auto 10.3 K/mm3 (1.3-6.7); Neutrophils Percent Auto 80.8 % (45.5-73.1); Platelet Count Result 259 k/mm3 (150-375); Red Blood Count 4.59 M/mm3 (4.2-5.4); Red Cell Distribution Width 13.1 % (11.5-14.5); White Blood Count 12.8 K/mm3 (4.5-10.0)
[2022-09-16 16:41] LABS: Alanine Aminotransferase 19 U/L (6-35); Albumin Level 4.4 g/dL (3.5-5.1); Alkaline Phosphatase 91 U/L (38-126); Anion Gap 7 mmol/L (8-16); Aspartate Amino Transferase 24 U/L (14-36); Bilirubin,Total 0.7 mg/dL (0.2-1.3); Blood Urea Nitrogen 23 mg/dL (7-17); Calcium 9.3 mg/dL (8.4-10.2); Carbon Dioxide 29 mmol/L (22-30); Chloride 100 mmol/L (98-107); Estimated CRCL calculation 29 ml/min; Estimated Glomerular Filt Rate 36; Glucose 128 mg/dL (65-110); Lactic Acid Reflex 1.2 mmol/L (0.7-2.0); Potassium 3.9 mmol/L (3.4-5.0); Sodium 136 mmol/L (137-145)
[2022-09-16 16:48] LABS: Partial Thromboplastin Time 30.8 SECONDS (22.3-36.8)
[2022-09-16 16:52] LABS: Troponin I < 0.012 ng/mL (0.000-0.034)
[2022-09-16 16:55] LABS: Appearance Urine Cloudy (Clear); Bacteria Urine 4+ /hpf; Bilirubin Urine Negative (Negative); Blood Urine 2+ (Negative); Color Urine Yellow (Yellow); Glucose Urine UA Negative (Negative); Ketones Urine Negative (Negative); Leukocyte Esterase Ur 3+ LEU/UL (Negative); Need Manual Microscopic Reviewed; Nitrate Urine Positive (Negative); Protein Urine 2+ mg/dL (Negative); RBC Urine 21-50 /hpf (0-2); Specific Grav Ur 1.016 (1.001-1.035); Squamous Epithelial Cell Urine None seen /hpf (Few); Urobilinogen Urine 0.2 mg/dL (<2.0); WBC Urine >100 /hpf
[2022-09-16 16:56] LABS: Add Urine Microscopic? YES
[2022-09-16 17:07] LABS: Influenza A QL RT-PCR Negative (Negative); Influenza B QL RT-PCR Negative (Negative); RSV RNA, RT-PCR Negative (Negative); SARS-CoV-2 RNA PCR Negative
--- NOTE | 2022-09-16 17:34 | PM.IMHP ---
H&P: HPI History of Present Illness Date/Time: 09/16/22 17:34 Chief Complaint: Altered mental status Narrative: This is an 82-year-old female patient who came from home with complaints of weakness. Her is at the bedside attempting to answer questions for her but he is very hard of hearing as well. The patient had not been feeling well the patient has been having burning with urination and was concerned that she may have a UTI. The patient had gone into the bathroom today and her found her slumped over on the toilet. She did not fall on the toilet or off the toilet. The patient does not recall passing out and she stated she just felt weak. He has been feeling very sleepy. She denies any fever chills. No abdominal pain no nausea no vomiting no diarrhea. White count 12.8. Creatinine 1.4. Her baseline is anywhere from 1.0-1.3. Her urine was positive for UTI. She was negative for influenza a B RSV and COVID. The patient was given IV fluids and Rocephin in the emergency room. The patient is being admitted to observation status on the date of service of 09/16/2022. Review of Systems Review of Systems: See HPI All systems reviewed & are unremarkable except as noted in HPI and below Constitutional: Constitutional: Reports as per HPI and Reports no additional constitutional complaints Eyes: Eyes: Reports as per HPI and Reports no additional eye complaints ENT: Reports system reviewed and no additional complaints, except as documented and Reports Normal hearing present Cardiovascular: Cardiovascular: Reports no additional cardiovascular complaints Respiratory: Respiratory: Reports no additional respiratory complaints and Reports no additional respiratory complaints Gastrointestinal: Gastrointestinal: Reports as per HPI and Reports no additional gastrointestinal complaints Musculoskeletal: Musculoskeletal: Reports no additional musculoskeletal complaints Integumentary/Breasts: Skin/Breast: Reports system reviewed and no additional complaints, except as docu and Reports as per HPI Neurologic: Reports system reviewed and no additional complaints, except as documented, Reports as per HPI and Reports Normal hearing present Psychiatric: Psychiatric: Reports no additional psychiatric complaints and Reports as per HPI Endocrine: Endocrine: Reports no additional endocrine complaints Hematologic/Lymphatic: Hematologic/Lymphatic: Reports no additional hematologic/lymphatic complaints Allergic/Immunologic: Allergic/Immunologic: Reports no additional allergic/immunologic complaints PMFSH Past Medical History Medical History Asthma Pulmonary function test in February 2019 showed mild obstructive ventilatory defect with severe small airway pattern with excellent response to bronchodilator. Chronic kidney disease, stage 3 Baseline creatinine is 1.30. Dementia Depression GERD (gastroesophageal reflux disease) Gastritis noted on EGD in January [address] Garcia. History of diverticulitis History of small bowel obstruction Secondary to adhesions. Major depressive disorder, recurrent, moderate Spondylosis Surgical History Surgical History (Updated 09/16/22 @ 22:24 by Danae Rosario NP) H/O cataract extraction X6 History of section X6. History of section, classical History of eye surgery Repair of macular hole. History of laparotomy Secondary to bowel obstruction, with adhesiolysis. History of removal of pigmented skin lesion History of surgery on left wrist With hardware. S/P ORIF (open reduction internal fixation) fracture Left wrist bee Status post cholecystectomy Status post right breast lumpectomy With benign pathology. Status post surgical removal of malignant neoplasm of skin Excision of basal cell carcinoma from the forehead. Status post total hysterectomy Family History Family History (Reviewed 09/16/22 @ 22:22 by
--- NOTE | 2022-09-16 18:03 | PC.NURSE ---
This patient, Theodora Pineda, was admitted to 2 Medical Room 258-. Patient/family oriented to hospital policies and general routines including ID bracelet, bed and alarms, visiting hours, pain management, procedures, bathroom and other care routines, personal items, smoking policy, room service/diet, and visiting hours. Information on how to activate the Rapid Response Team has been discussed. Patient/Family are encouraged to report perceived risks to care and to ask questions if they do not understand what they are told or what they should do.
[2022-09-16] MEDS: SODIUM CHLORIDE 0.9% IV 1,000 ML 100 ML IV CONT (18:12)
[2022-09-16 20:08] LABS: Troponin I < 0.012 ng/mL (0.000-0.034)
[2022-09-17] VITALS (14 sets, daily range): BP systolic 146–195; BP diastolic 68–135; PULSE 66–106; RESP 16; TEMP 36.5–36.8; O2SAT 96–98
[2022-09-17 00:28] LABS: Troponin I < 0.012 ng/mL (0.000-0.034)
--- NOTE | 2022-09-17 05:07 | PC.NURSE ---
Assumed care of this pt from JOHN Pruett.
[2022-09-17] MEDS: SODIUM CHLORIDE 0.9% IV 1,000 ML 100 ML IV CONT (05:24)
[2022-09-17] MEDS: LEVOTHYROXINE SODIUM 50 MCG TABLET PO (05:25)
[2022-09-17 05:44] LABS: Basophils Percent Auto 0.4 % (0.2-1.2); Eosinophils Absolute Auto 0.1 K/mm3 (0-0.3); Eosinophils Percent Auto 1.6 % (0-4.4); Hematocrit 36.9 % (37.0-47.0); Hemoglobin 12.2 g/dL (12.0-15.0); Immature Granulocyte Absolute 0.01 K/mm3 (0.00-0.031); Immature Granulocyte Percent A 0.1 % (0-0.5); Lymphocytes Absolute Auto 1.82 K/mm3 (0.9-3.2); Lymphocytes Percent Auto 24.1 % (18.3-44.2); Mean Corpuscular HGB Conc 33.1 g/dl (32-36); Mean Corpuscular Hemoglobin 30.1 pg (26-34); Mean Corpuscular Volume 91.1 fl (80-100); Monocytes Absolute Auto 0.7 K/mm3 (0.1-0.6); Neutrophils Absolute Auto 4.9 K/mm3 (1.3-6.7); Neutrophils Percent Auto 64.8 % (45.5-73.1); Platelet Count Result 220 k/mm3 (150-375); Red Blood Count 4.05 M/mm3 (4.2-5.4); White Blood Count 7.6 K/mm3 (4.5-10.0)
[2022-09-17 05:53] LABS: Potassium 3.4 mmol/L (3.4-5.0)
[2022-09-17 05:57] LABS: Alanine Aminotransferase 15 U/L (6-35); Albumin Level 3.4 g/dL (3.5-5.1); Alkaline Phosphatase 68 U/L (38-126); Anion Gap 5 mmol/L (8-16); Aspartate Amino Transferase 22 U/L (14-36); Bilirubin,Total 0.7 mg/dL (0.2-1.3); Blood Urea Nitrogen 19 mg/dL (7-17); Carbon Dioxide 26 mmol/L (22-30); Chloride 108 mmol/L (98-107); Estimated CRCL calculation 42 ml/min; Estimated Glomerular Filt Rate 53; Glucose 97 mg/dL (65-110); Lactate Dehydrogenase 176 U/L (120-246); Sodium 139 mmol/L (137-145)
[2022-09-17] MEDS: hydroCHLOROthiazide 12.5 MG CAPSULE PO (10:23)
[2022-09-17] MEDS: IRBESARTAN 150 MG TABLET 300 MG PO (10:23)
--- NOTE | 2022-09-17 11:45 | PM.IMPN ---
Progress Note: A&P Assessment and Plan (1) Acute UTI: Code(s): N39.0 - Urinary tract infection, site not specified Status: Acute Assessment and Plan: UA appears infectious Continue with Rocephin Blood cultures pending urine cultures pending Tailor antibiotics to culture and sensitivity results reviewed with her and the about good radha care, as she does routinely leak (2) Syncope: Code(s): R55 - Syncope and collapse Status: Acute Assessment and Plan: Complaints of weakness, found patient slumped over the toilet Continue to monitor on telemetry Orthostatic blood pressures Q shift Carotid doppler ordered Could be related to urine infection (3) Alzheimer's disease with behavioral disturbance: Code(s): G30.9 - Alzheimer's disease, unspecified; F02.81 - Dementia in other diseases classified elsewhere, unspecified severity, with behavioral disturbance Status: Acute Assessment and Plan: Continue with Seroquel Trend mood (4) Hypothyroidism: Code(s): E03.9 - Hypothyroidism, unspecified Status: Acute Assessment and Plan: TSH 1.900 Continue with levothyroxine (5) Hypertension: Code(s): I10 - Essential (primary) hypertension Status: Acute Assessment and Plan: Current BP is 161/71 Continue irbesartan/HCTZ Trend BP Adjust medication as indicated (6) Chronic kidney disease, stage 3: Code(s): N18.3 - Chronic kidney disease, stage 3 (moderate) Status: Acute Assessment and Plan: BUN/Cr 23/1.40 Baseline creatinine 1.10-1.40 Current BUN/Cr is 19/1.00 Continue with IV fluids. Avoid nephrotoxic medication Plan Complaints of Diarrhea, and frequency, will get a C. Diff as she has recently been on Augmentin for a dog bite Time Spent With Patient Time: 51 minutes Time with patient: Greater than 35 minutes Subjective Date/time seen: 09/17/22 1145 Interval history: 09/17/22 1145 Patient was sitting in bed eating. Patient did state that she was having some diarrhea and did recently take some amoxicillin. She stated that she had about 4 days of it before she stopped it. She also stated that she is feeling better however she is having some balance issues. Her was present and did state that she seems to get a little wobbly at times. She denies any chest pain, shortness a breath, nausea, vomiting, constipation. Patient did state that she was slightly weak. Nursing did report the patient was having some pretty foul diarrhea this morning C diff was ordered as the patient has recently been on antibiotics. 09/16/22? 17:34 This is an 82-year-old female patient who came from home with complaints of weakness.? Her is at the bedside attempting to answer questions for her but he is very hard of hearing as well.? The patient had not been feeling well the patient has been having burning with urination and was concerned that she may have a UTI.? The patient had gone into the bathroom today and her found her slumped over on the toilet.? She did not fall on the toilet or off the toilet.? The patient does not recall passing out and she stated she just felt weak.? He has been feeling very sleepy.? She denies any fever chills.? No abdominal pain no nausea no vomiting no diarrhea.? White count 12.8.? Creatinine 1.4.? Her baseline is anywhere from 1.0-1.3.? Her urine was positive for UTI.? She was negative for influenza a B RSV and COVID.? The patient was given IV fluids and Rocephin in the emergency room.? The patient is being admitted to observation status on the date of service of 09/16/2022. Review of Systems Review of Systems: All systems reviewed & are unremarkable except as noted in HPI and below Exam Narrative: General: well-nourished, well-appearing 82-year-old female, sitting up in bed
[2022-09-17] MEDS: QUEtiapine FUMARATE 25 MG TABLET PO (20:52)
[2022-09-18] VITALS (7 sets, daily range): BP systolic 152–179; BP diastolic 69–88; PULSE 71–92; RESP 16; TEMP 36.7–36.8; O2SAT 96–99
[2022-09-18] MEDS: LEVOTHYROXINE SODIUM 25 MCG TABLET PO (05:38)
[2022-09-18 06:01] LABS: Basophils Absolute Auto 0.1 K/mm3 (0.0-0.1); Basophils Percent Auto 0.8 % (0.2-1.2); Eosinophils Absolute Auto 0.2 K/mm3 (0-0.3); Hematocrit 37.7 % (37.0-47.0); Hemoglobin 12.3 g/dL (12.0-15.0); Immature Granulocyte Absolute 0.01 K/mm3 (0.00-0.031); Immature Granulocyte Percent A 0.2 % (0-0.5); Lymphocytes Absolute Auto 1.33 K/mm3 (0.9-3.2); Lymphocytes Percent Auto 22.3 % (18.3-44.2); Mean Corpuscular HGB Conc 32.6 g/dl (32-36); Mean Corpuscular Hemoglobin 29.6 pg (26-34); Mean Corpuscular Volume 90.6 fl (80-100); Mean Platelet Volume 9.1 fl (7.4-10.4); Monocytes Absolute Auto 0.7 K/mm3 (0.1-0.6); Monocytes Percent Auto 12.2 % (2.6-8.5); Neutrophils Absolute Auto 3.7 K/mm3 (1.3-6.7); Neutrophils Percent Auto 61.5 % (45.5-73.1); Platelet Count Result 219 k/mm3 (150-375); Red Blood Count 4.16 M/mm3 (4.2-5.4); Red Cell Distribution Width 12.7 % (11.5-14.5)
[2022-09-18 06:19] LABS: Alanine Aminotransferase 17 U/L (6-35); Albumin Level 3.6 g/dL (3.5-5.1); Alkaline Phosphatase 67 U/L (38-126); Anion Gap 9 mmol/L (8-16); Aspartate Amino Transferase 25 U/L (14-36); Bilirubin,Total 0.5 mg/dL (0.2-1.3); Blood Urea Nitrogen 18 mg/dL (7-17); Calcium 8.6 mg/dL (8.4-10.2); Carbon Dioxide 22 mmol/L (22-30); Chloride 107 mmol/L (98-107); Estimated CRCL calculation 42 ml/min; Estimated Glomerular Filt Rate 53; Glucose 105 mg/dL (65-110); Magnesium 2.1 mg/dL (1.6-2.3); Potassium 3.4 mmol/L (3.4-5.0); Sodium 138 mmol/L (137-145)
[2022-09-18] MEDS: IRBESARTAN 150 MG TABLET 300 MG PO (08:46)
[2022-09-18] MEDS: hydroCHLOROthiazide 12.5 MG CAPSULE PO (08:46)
--- NOTE | 2022-09-18 14:53 | PM.IMPN ---
Progress Note: A&P Assessment and Plan (1) Acute UTI: Code(s): N39.0 - Urinary tract infection, site not specified Status: Acute Assessment and Plan: UA appears infectious Continue with Rocephin Blood cultures pending urine cultures pending Tailor antibiotics to culture and sensitivity results reviewed with her and the about good radha care, as she does routinely leak 09/18/2022 interval history: Patient laying in the bed, her is present, Patient did state that she was having some diarrhea and did recently take some amoxicillin. She stated that she had about 4 days of it before she stopped it. patient stats her diarrhea, have not stopped, patient urine is growing E coli, being treated with ceftriaxone will follow-up on sensitivity, She also stated that she is feeling better however she is having some balance issues. Her was present and did state that she seems to get a little wobbly at times. will have PT/OT evaluate the patient, She denies any chest pain, shortness a breath, nausea, vomiting, constipation. Patient did state that she was slightly weak. Nursing did report the patient was having some pretty foul diarrhea, C diff was ordered as the patient has recently been on antibiotics and its pending, will follow up, (2) Syncope: Code(s): R55 - Syncope and collapse Status: Acute Assessment and Plan: Complaints of weakness, found patient slumped over the toilet Continue to monitor on telemetry Orthostatic blood pressures Q shift Carotid doppler ordered Could be related to urine infection (3) Alzheimer's disease with behavioral disturbance: Code(s): G30.9 - Alzheimer's disease, unspecified; F02.81 - Dementia in other diseases classified elsewhere, unspecified severity, with behavioral disturbance Status: Acute Assessment and Plan: Continue with Seroquel Trend mood (4) Hypothyroidism: Code(s): E03.9 - Hypothyroidism, unspecified Status: Acute Assessment and Plan: TSH 1.900 Continue with levothyroxine (5) Hypertension: Code(s): I10 - Essential (primary) hypertension Status: Acute Assessment and Plan: Current BP is 161/71 Continue irbesartan/HCTZ Trend BP Adjust medication as indicated (6) Chronic kidney disease, stage 3: Code(s): N18.3 - Chronic kidney disease, stage 3 (moderate) Status: Acute Assessment and Plan: BUN/Cr 23/1.40 Baseline creatinine 1.10-1.40 Current BUN/Cr is 19/1.00 Continue with IV fluids. Avoid nephrotoxic medication Plan Complaints of Diarrhea, and frequency, will get a C. Diff as she has recently been on Augmentin for a dog bite Subjective Date/time seen: 09/18/22 14:53 Interval history: 09/18/2022 interval history: Patient laying in the bed, her is present, Patient did state that she was having some diarrhea and did recently take some amoxicillin. She stated that she had about 4 days of it before she stopped it. patient stats her diarrhea, have not stopped, patient urine is growing E coli, being treated with ceftriaxone will follow-up on sensitivity, She also stated that she is feeling better however she is having some balance issues. Her was present and did state that she seems to get a little wobbly at times. will have PT/OT evaluate the patient, She denies any chest pain, shortness a breath, nausea, vomiting, constipation. Patient did state that she was slightly weak. Nursing did report the patient was having some pretty foul diarrhea, C diff was ordered as the patient has recently been on antibiotics and its pending, will follow up, 09/16/22? 17:34 This is an 82-year-old female patient who came from home with complaints of weakness.? Her is at the bedside attempting to answer questions for her but he is very hard of
[2022-09-18] MEDS: QUEtiapine FUMARATE 25 MG TABLET PO (20:42)
[2022-09-19] VITALS (7 sets, daily range): BP systolic 121–150; BP diastolic 60–72; PULSE 71–92; RESP 17–18; TEMP 36.7–36.9; O2SAT 93–100
[2022-09-19] MEDS: LEVOTHYROXINE SODIUM 25 MCG TABLET PO (06:32)
[2022-09-19] MEDS: IRBESARTAN 150 MG TABLET 300 MG PO (08:51)
[2022-09-19] MEDS: hydroCHLOROthiazide 12.5 MG CAPSULE PO (08:52)
--- NOTE | 2022-09-19 13:58 | PM.IMPN ---
Progress Note: A&P Assessment and Plan (1) Acute UTI: Code(s): N39.0 - Urinary tract infection, site not specified Status: Acute Assessment and Plan: UA appears infectious Continue with Rocephin Blood cultures pending urine cultures pending Tailor antibiotics to culture and sensitivity results reviewed with her and the about good radha care, as she does routinely leak 09/19/2022 interval history: Patient laying in the bed, her is present, Patient did state that she was having some diarrhea and did recently take some amoxicillin. She stated that she had about 4 days of it before she stopped it. patient stats her diarrhea, have not stopped, patient urine is growing E coli, being treated with ceftriaxone will follow-up on sensitivity, She also stated that she is feeling better however she is having some balance issues. today she did work with PT/OT, on 09/18 Her was present and did state that she seems to get a little wobbly at times. will conyinur PT/OT, patient presented with a complaint of UTI urine is growing E coli sensitive to ceftriaxone, She denies any chest pain, shortness a breath, nausea, vomiting, constipation. Patient did state that she was slightly weak. will continue to monitor discharge the patient home tomorrow. Nursing did report the patient was having some pretty foul diarrhea, C diff was ordered as the patient has recently been on antibiotics and its pending, will follow up, (2) Syncope: Code(s): R55 - Syncope and collapse Status: Acute Assessment and Plan: Complaints of weakness, found patient slumped over the toilet Continue to monitor on telemetry Orthostatic blood pressures Q shift Carotid doppler ordered Could be related to urine infection (3) Alzheimer's disease with behavioral disturbance: Code(s): G30.9 - Alzheimer's disease, unspecified; F02.81 - Dementia in other diseases classified elsewhere, unspecified severity, with behavioral disturbance Status: Acute Assessment and Plan: Continue with Seroquel Trend mood (4) Hypothyroidism: Code(s): E03.9 - Hypothyroidism, unspecified Status: Acute Assessment and Plan: TSH 1.900 Continue with levothyroxine (5) Hypertension: Code(s): I10 - Essential (primary) hypertension Status: Acute Assessment and Plan: Current BP is 161/71 Continue irbesartan/HCTZ Trend BP Adjust medication as indicated (6) Chronic kidney disease, stage 3: Code(s): N18.3 - Chronic kidney disease, stage 3 (moderate) Status: Acute Assessment and Plan: BUN/Cr 23/1.40 Baseline creatinine 1.10-1.40 Current BUN/Cr is 19/1.00 Continue with IV fluids. Avoid nephrotoxic medication Plan Complaints of Diarrhea, and frequency, will get a C. Diff as she has recently been on Augmentin for a dog bite Subjective Date/time seen: 09/19/22 13:58 Interval history: 09/19/2022 interval history: Patient laying in the bed, her is present, Patient did state that she was having some diarrhea and did recently take some amoxicillin. She stated that she had about 4 days of it before she stopped it. patient stats her diarrhea, have not stopped, patient urine is growing E coli, being treated with ceftriaxone will follow-up on sensitivity, She also stated that she is feeling better however she is having some balance issues. today she did work with PT/OT, on 09/18 Her was present and did state that she seems to get a little wobbly at times. will conyinur PT/OT, patient presented with a complaint of UTI urine is growing E coli sensitive to ceftriaxone, She denies any chest pain, shortness a breath, nausea, vomiting, constipation. Patient did state that she was slightly weak. will continue to monitor discharge the patient home tomorrow. Nursing
[2022-09-19] MEDS: QUEtiapine FUMARATE 25 MG TABLET PO (20:36)
[2022-09-20 05:05] VITALS: BP 112/54; PULSE 79; RESP 17; TEMP 36.5; O2SAT 97
[2022-09-20] MEDS: LEVOTHYROXINE SODIUM 25 MCG TABLET PO (06:17)
[2022-09-20] MEDS: IRBESARTAN 150 MG TABLET 300 MG PO (08:01)
[2022-09-20] MEDS: hydroCHLOROthiazide 12.5 MG CAPSULE PO (08:01)
[2022-09-20 08:40] VITALS: BP 123/61; PULSE 86; RESP 16; TEMP 36.6; O2SAT 97
--- NOTE | 2022-09-20 10:45 | PC.NURSE ---
On 09/20/22, the student, [Aaliyah Piedra], provided care and completed [facility] documentation on this patient. I have reviewed the student's documentation and agree with the findings.
[2022-09-20] MEDS: POTASSIUM CHLORIDE 20 MEQ TABLET 40 MEQ PO (11:15)
--- NOTE | 2022-09-20 11:28 | PM.DS ---
DS: Admitting Diagnosis Discharge Date 09/20/2022 Admitting Diagnosis Altered mental status DS: Discharge Diagnosis Discharge Diagnosis (1) Acute UTI: Code(s): N39.0 - Urinary tract infection, site not specified Status: Acute Assessment and Plan: UA appears infectious Continue with Rocephin Blood cultures pending urine cultures pending Tailor antibiotics to culture and sensitivity results reviewed with her and the about good radha care, as she does routinely leak 09/19/2022 interval history: Patient laying in the bed, her is present, Patient did state that she was having some diarrhea and did recently take some amoxicillin. She stated that she had about 4 days of it before she stopped it. patient stats her diarrhea, have not stopped, patient urine is growing E coli, being treated with ceftriaxone will follow-up on sensitivity, She also stated that she is feeling better however she is having some balance issues. today she did work with PT/OT, on 09/18 Her was present and did state that she seems to get a little wobbly at times. will conyinur PT/OT, patient presented with a complaint of UTI urine is growing E coli sensitive to ceftriaxone, She denies any chest pain, shortness a breath, nausea, vomiting, constipation. Patient did state that she was slightly weak. will continue to monitor discharge the patient home tomorrow. Nursing did report the patient was having some pretty foul diarrhea, C diff was ordered as the patient has recently been on antibiotics and its pending, will follow up, (2) Syncope: Code(s): R55 - Syncope and collapse Status: Acute Assessment and Plan: Complaints of weakness, found patient slumped over the toilet Continue to monitor on telemetry Orthostatic blood pressures Q shift Carotid doppler ordered Could be related to urine infection (3) Alzheimer's disease with behavioral disturbance: Code(s): G30.9 - Alzheimer's disease, unspecified; F02.81 - Dementia in other diseases classified elsewhere, unspecified severity, with behavioral disturbance Status: Acute Assessment and Plan: Continue with Seroquel Trend mood (4) Hypothyroidism: Code(s): E03.9 - Hypothyroidism, unspecified Status: Acute Assessment and Plan: TSH 1.900 Continue with levothyroxine (5) Hypertension: Code(s): I10 - Essential (primary) hypertension Status: Acute Assessment and Plan: Current BP is 161/71 Continue irbesartan/HCTZ Trend BP Adjust medication as indicated (6) Chronic kidney disease, stage 3: Code(s): N18.3 - Chronic kidney disease, stage 3 (moderate) Status: Acute Assessment and Plan: BUN/Cr 23/1.40 Baseline creatinine 1.10-1.40 Current BUN/Cr is 19/1.00 Continue with IV fluids. Avoid nephrotoxic medication Plan Complaints of Diarrhea, and frequency, will get a C. Diff as she has recently been on Augmentin for a dog bite DS: Summary Hospital Course Reason for hospitalization: Altered mental status Narrative: This is an 82-year-old female patient who came from home with complaints of weakness.? Her is at the bedside attempting to answer questions for her but he is very hard of hearing as well.? The patient had not been feeling well the patient has been having burning with urination and was concerned that she may have a UTI.? The patient had gone into the bathroom today and her found her slumped over on the toilet.? She did not fall on the toilet or off the toilet.? The patient does not recall passing out and she stated she just felt weak.? He has been feeling very sleepy.? She denies any fever chills.? No abdominal pain no nausea no vomiting no diarrhea.? White count 12.8.? Creatinine 1.4.? Her baseline is anywhere from 1.0-1.3.? Her urine was positive for UTI.?
== END 2022-09-20 12:20 | disposition home or self-care (01) ==
LOC: ANHED 17:15 → ANH2MED 09-19 08:49
PROVIDERS: Nurse Practitioner; Admitting Provider Student in an Organized Health Care Education/Training Program; Emergency Provider Emergency Medicine; PCP Family Medicine; Visit Provider Family Medicine
DX: N39.0 Urinary tract infection, site not specified (principal); B96.20 Unspecified Escherichia coli [E. coli] as the cause of diseases classified elsewhere; R55 Syncope and collapse; G30.9 Alzheimer's disease, unspecified; F02.80 Dementia in other diseases classified elsewhere, unspecified severity, without behavioral disturbance, psychotic disturbance, mood disturbance, and anxiety; E03.9 Hypothyroidism, unspecified; I12.9 Hypertensive chronic kidney disease with stage 1 through stage 4 chronic kidney disease, or unspecified chronic kidney disease; N18.30 Chronic kidney disease, stage 3 unspecified; Z20.822 Contact with and (suspected) exposure to COVID-19; D72.829 Elevated white blood cell count, unspecified; R19.7 Diarrhea, unspecified; R26.81 Unsteadiness on feet; J45.909 Unspecified asthma, uncomplicated; K21.9 Gastro-esophageal reflux disease without esophagitis; F33.1 Major depressive disorder, recurrent, moderate; R90.82 White matter disease, unspecified; Z79.899 Other long term (current) drug therapy
CPT/HCPCS: 36415; 70450; 71045; 80053; 81001; 83605; 83615; 83735; 84443; 84484; 85025; 85610; 85730; 87040; 87077; 87086; 87186; 87637; 93005; 96361; 96365; 96366; 96375; 97165; 99285; A9270; G0378; J0696; J7030

== ENCOUNTER 2023-05-08 15:29 | Outpatient (CLI) | payer MEDICARE, SELFPAY ==
--- NOTE | ~2023-05-08 | MM_ITS ---
EXAMINATION: MM screening sahra BI w victoria HISTORY: Screening mammogram, history of right breast cancer TECHNIQUE: Craniocaudal and mediolateral oblique 3-D tomosynthesis images were obtained and synthetic 2-D images were generated. CAD analysis was submitted and interpreted. COMPARISON: 02/13/2022, 12/20/2020, 11/11/2019 BREAST PARENCHYMAL COMPOSITION: There are scattered areas of fibroglandular density. FINDINGS: There are stable lumpectomy changes of the right breast. No suspicious mass, calcification, or architectural distortion are identified in either breast to suggest malignancy. There has been no suspicious interval change. IMPRESSION: 1. No mammographic evidence of malignancy. 2. Recommend routine screening mammography while the patient remains in good health. BI-RADS Category 2: Benign finding(s). Reviewed, dictated and finalized at location A. IMPRESSION: 1. No mammographic evidence of malignancy. 2. Recommend routine screening mammography while the patient remains in good he alth. BI-RADS Category 2: Benign finding(s).
== END 2023-05-08 15:30 | disposition home or self-care (01) ==
LOC: ANHIMG 15:32
PROVIDERS: PCP Family Medicine; Visit Provider Family Medicine
DX: Z12.31 Encounter for screening mammogram for malignant neoplasm of breast (principal)
CPT/HCPCS: 77063; 77067

== ENCOUNTER 2023-08-27 19:30 | Emergency (ER) | payer MEDICARE, SELFPAY ==
[2023-08-27 19:52] VITALS: BP 199/95; PULSE 75; RESP 15; TEMP 36.4; O2SAT 96
[2023-08-27 22:50] VITALS: PULSE 96; RESP 26; O2SAT 97
[2023-08-27 23:02] VITALS: BP 192/93
[2023-08-27 23:48] LABS: Basophils Absolute Auto 0.1 K/mm3 (0.0-0.1); Basophils Percent Auto 0.5 % (0.2-1.2); Eosinophils Absolute Auto 0.1 K/mm3 (0-0.3); Eosinophils Percent Auto 0.9 % (0-4.4); Hematocrit 43.8 % (37.0-47.0); Hemoglobin 14.3 g/dL (12.0-15.0); Immature Granulocyte Absolute 0.02 K/mm3 (0.00-0.031); Immature Granulocyte Percent A 0.2 % (0-0.5); Lymphocytes Absolute Auto 1.76 K/mm3 (0.9-3.2); Lymphocytes Percent Auto 17.4 % (18.3-44.2); Mean Corpuscular HGB Conc 32.6 g/dl (32-36); Mean Corpuscular Hemoglobin 29.9 pg (26-34); Mean Corpuscular Volume 91.4 fl (80-100); Monocytes Absolute Auto 0.7 K/mm3 (0.1-0.6); Monocytes Percent Auto 6.6 % (2.6-8.5); Neutrophils Absolute Auto 7.6 K/mm3 (1.3-6.7); Neutrophils Percent Auto 74.4 % (45.5-73.1); Platelet Count Result 261 k/mm3 (150-375); Red Blood Count 4.79 M/mm3 (4.2-5.4); Red Cell Distribution Width 13.2 % (11.5-14.5); White Blood Count 10.1 K/mm3 (4.5-10.0)
[2023-08-27 23:58] LABS: Alanine Aminotransferase 20 U/L (6-35); Albumin Level 4.5 g/dL (3.5-5.1); Alkaline Phosphatase 79 U/L (38-126); Anion Gap 6 mmol/L (8-16); Aspartate Amino Transferase 28 U/L (14-36); Bilirubin,Total 0.6 mg/dL (0.2-1.3); Blood Urea Nitrogen 15 mg/dL (7-17); Calcium 9.4 mg/dL (8.4-10.2); Carbon Dioxide 27 mmol/L (22-30); Chloride 108 mmol/L (98-107); Estimated CRCL calculation 40 ml/min; Estimated Glomerular Filt Rate 53; Glucose 120 mg/dL (65-110); Lipase 67 U/L (23-300); Potassium 3.3 mmol/L (3.4-5.0); Sodium 141 mmol/L (137-145)
[2023-08-28 00:21] VITALS: BP 180/95; PULSE 70; RESP 20; O2SAT 96
[2023-08-28 00:23] LABS: Influenza A QL RT-PCR Negative (Negative); Influenza B QL RT-PCR Negative (Negative); RSV RNA, RT-PCR Negative (Negative); SARS-CoV-2 RNA PCR Negative (Negative)
[2023-08-28 00:32] LABS: Appearance Urine Cloudy (Clear); Bacteria Urine 4+ /hpf; Bilirubin Urine Negative (Negative); Blood Urine Negative (Negative); Color Urine Yellow (Yellow); Glucose Urine UA Negative (Negative); Hyaline Casts Urine Present /lpf; Ketones Urine Negative (Negative); Leukocyte Esterase Ur Negative LEU/UL (Negative); Need Manual Microscopic Reviewed; Nitrate Urine Positive (Negative); Protein Urine Trace mg/dL (Negative); RBC Urine 0-2 /hpf (0-2); Specific Grav Ur 1.021 (1.001-1.035); Squamous Epithelial Cell Urine Many /hpf (Few); Urobilinogen Urine 0.2 mg/dL (<2.0)
[2023-08-28 00:33] LABS: Add Urine Microscopic? YES
[2023-08-28] MEDS: BELLADONNA ALK/PHENOB ELIX 10 ML, MAG HYDROX/ALUMINUM HYD/SIMETH 30 ML, LIDOCAINE HCL 2... PO (00:34)
--- NOTE | 2023-08-28 00:34 | ED.GENADULT ---
HPI - General Adult General Chief complaint: Nausea/Vomiting/Diarrhea Stated complaint: sleepy/balance problems/N/V/D Time Seen by Provider: 08/27/23 23:18 History of Present Illness HPI narrative: 83-year-old female history of Alzheimer's disease presenting to the emergency department for evaluation nausea vomiting and diarrhea. Patient states she is also having a headache the patient states that she gets a headache daily and this is her typical level of headache. Patient denies any associated numbness or weakness with this. Related Data Allergies Allergy/AdvReac Type Severity Reaction Status Date / Time rofecoxib Allergy Unknown UNSURE Verified 07/17/23 13:52 Sulfa (Sulfonamide Allergy Unknown Unknown Verified 07/17/23 13:52 Antibiotics) Review of Systems Review of Systems: All systems reviewed & are unremarkable except as noted in HPI and below PMFSH Past Medical History Medical History Acute pain of right wrist Alzheimer's dementia without behavioral disturbance Asthma Pulmonary function test in February 2019 showed mild obstructive ventilatory defect with severe small airway pattern with excellent response to bronchodilator. B12 deficiency Chronic headaches Chronic insomnia Chronic kidney disease, stage 3 Baseline creatinine is 1.30. Debility Dementia Depression GERD (gastroesophageal reflux disease) Gastritis noted on EGD in January [address] Garcia. History of diverticulitis History of small bowel obstruction Secondary to adhesions. 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 History of section, classical History of eye surgery Repair of macular hole. History of laparotomy Secondary to bowel obstruction, with adhesiolysis. History of removal of pigmented skin lesion History of surgery on left wrist With hardware. S/P ORIF (open reduction internal fixation) fracture Left wrist bee Status post cholecystectomy Status post right breast lumpectomy With benign pathology. Status post surgical removal of malignant neoplasm of skin Excision of basal cell carcinoma from the forehead. Status post total hysterectomy Family History Family History Mother Hypertension Father Family history of lymphoma Social History Social History Social History: The patient is and lives with her in [place]. 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 she designates her , Hussain, as her surrogate decision maker. She is listed as a full code. She is a lifelong nonsmoker and denies alcohol and drug abuse. She had 6 children and one . Code status full code Smoking status: Never smoker Second hand tobacco smoke exposure: No Alcohol intake: never Substance use: never Substance use type: does not use Lack of Transportation: No Lack of Food: Never True Current Housing: I Have Housing Concerned About Future Housing: No Difficulty Paying Gas/Electric Bills: No Difficulty Paying for Meds: No Currently Unemployed: No Education: High School Diploma/GED Difficulty w/ Childcare or Family Care: No Living arrangements: with family Occupation/Education: retired Gender identity (if verbalized by the patient): Female Sexual Orientation (if Verbalized by the Patient):
[2023-08-28 01:56] VITALS: PULSE 80; RESP 17; O2SAT 96
[2023-08-28 02:25] VITALS: BP 207/82; PULSE 99; RESP 20; O2SAT 96
[2023-08-28] MEDS: hydrALAZINE HCL 20 MG/ML VIAL 10 MG IV PUSH (02:34)
[2023-08-28 02:47] VITALS: BP 180/90; PULSE 81; RESP 20; O2SAT 97
[2023-08-28] MEDS: ONDANSETRON HCL ODT 4 MG TABLET (03:06)
== END 2023-08-28 03:13 | disposition home or self-care (01) ==
PROVIDERS: Emergency Provider Emergency Medicine; PCP Family Medicine
DX: N39.0 Urinary tract infection, site not specified (principal); R11.2 Nausea with vomiting, unspecified; Z20.822 Contact with and (suspected) exposure to COVID-19; G30.9 Alzheimer's disease, unspecified; F02.80 Dementia in other diseases classified elsewhere, unspecified severity, without behavioral disturbance, psychotic disturbance, mood disturbance, and anxiety; I12.9 Hypertensive chronic kidney disease with stage 1 through stage 4 chronic kidney disease, or unspecified chronic kidney disease; N18.30 Chronic kidney disease, stage 3 unspecified; E53.8 Deficiency of other specified B group vitamins; E55.9 Vitamin D deficiency, unspecified; K21.9 Gastro-esophageal reflux disease without esophagitis; F51.04 Psychophysiologic insomnia; Z87.01 Personal history of pneumonia (recurrent); Z85.828 Personal history of other malignant neoplasm of skin; Z87.440 Personal history of urinary (tract) infections; Z98.49 Cataract extraction status, unspecified eye; Z90.49 Acquired absence of other specified parts of digestive tract; Z90.710 Acquired absence of both cervix and uterus
CPT/HCPCS: 36415; 80053; 81001; 83690; 85025; 87077; 87086; 87186; 87637; 96365; 96375; 99284; A9270; J0360; J0696

== ENCOUNTER 2023-09-02 21:45 | Observation (INO) | payer MEDICARE, SELFPAY ==
--- NOTE | ~2023-09-02 | CT_ITS ---
CT of the Abdomen and Pelvis: Indication: Abdominal stent Technique: 2.5 mm axial scans were obtained through the abdomen and pelvis following intravenous adm inistration of 100 cc of Omnipaque 350. Dose reduction technique was used on this scan by utilizing a utomated exposure control and iterative reconstruction technique. The dose-length product (DLP) was 6 05.25 mGy-cm. COMPARISON: 11/11/2020 Findings: Scans through the lung bases are unremarkable. The liver, spleen, pancreas, adrenals and kidneys are within normal limits. Cholecystectomy clips are present. There are atherosclerotic calcifications of the aorta. No lymphadenopathy. No bowel obstruction or bowel wall thickening. There is no evidence to suggest acute appendicitis. Images through the pelvis were performed. Urinary bladder unremarkable. There is a pelvic catheter wh ich is within the vagina. No pelvic mass evident. No ascites. Impression: Pelvic catheter within the vagina. This is possibly a malpositioned/misplaced Lyle catheter. Correla te clinically. Consider removal/replacement depending on clinical findings/history. No other significant findings. Reviewed, dictated and finalized at location . OR IT BUSINESS ANALYST Impression: Pelvic catheter within the vagina. This is possibly a malpositioned/misplaced F oley catheter. Correlate clinically. Consider removal/replacement depending on clinical findings/history. No other significant findings.
--- NOTE | ~2023-09-02 | XR_ITS ---
Portable chest x-ray Comparison: 09/16/2022 Clinical History: Weakness Findings: Lungs are clear, without focal consolidation or pleural effusion. Cardiomediastinal silho uette is stable. Bones and soft tissues are unremarkable. Impression: Normal chest. Reviewed, dictated and finalized at [facility]. TRICIAN DECK Impression: Normal chest.
[2023-09-02 21:48] VITALS: BP 211/87; PULSE 98; RESP 19; TEMP 37; O2SAT 94
[2023-09-02 22:05] VITALS: PULSE 88
[2023-09-02 22:15] LABS: Basophils Percent Auto 0.2 % (0.2-1.2); Hematocrit 42.3 % (37.0-47.0); Hemoglobin 14.1 g/dL (12.0-15.0); Immature Granulocyte Absolute 0.04 K/mm3 (0.00-0.031); Immature Granulocyte Percent A 0.3 % (0-0.5); Lymphocytes Absolute Auto 0.63 K/mm3 (0.9-3.2); Mean Corpuscular HGB Conc 33.3 g/dl (32-36); Mean Corpuscular Hemoglobin 29.7 pg (26-34); Mean Corpuscular Volume 89.1 fl (80-100); Mean Platelet Volume 9.2 fl (7.4-10.4); Monocytes Absolute Auto 0.8 K/mm3 (0.1-0.6); Monocytes Percent Auto 6.5 % (2.6-8.5); Neutrophils Absolute Auto 11.1 K/mm3 (1.3-6.7); Platelet Count Result 277 k/mm3 (150-375); Red Blood Count 4.75 M/mm3 (4.2-5.4); Red Cell Distribution Width 13.2 % (11.5-14.5); White Blood Count 12.6 K/mm3 (4.5-10.0)
[2023-09-02 22:25] LABS: Alanine Aminotransferase 21 U/L (6-35); Albumin Level 4.4 g/dL (3.5-5.1); Alkaline Phosphatase 81 U/L (38-126); Anion Gap 9 mmol/L (8-16); Aspartate Amino Transferase 30 U/L (14-36); Bilirubin,Total 0.9 mg/dL (0.2-1.3); Blood Urea Nitrogen 10 mg/dL (7-17); Calcium 9.4 mg/dL (8.4-10.2); Carbon Dioxide 28 mmol/L (22-30); Chloride 101 mmol/L (98-107); Estimated CRCL calculation 40 ml/min; Estimated Glomerular Filt Rate 53; Glucose 143 mg/dL (65-110); Lipase 55 U/L (23-300); Potassium 3.3 mmol/L (3.4-5.0); Sodium 138 mmol/L (137-145)
--- NOTE | 2023-09-02 22:45 | PC.NURSE ---
Straight cath attempted by tech. Not enough urine output at this time. ERP ordering fluids and will attempt again.
[2023-09-02 22:50] LABS: Influenza A QL RT-PCR Negative (Negative); Influenza B QL RT-PCR Negative (Negative); RSV RNA, RT-PCR Negative (Negative); SARS-CoV-2 RNA PCR Positive (Negative)
[2023-09-02] MEDS: SODIUM CHLORIDE 0.9% IV 2,000 ML 999 ML IV CONT (23:24)
--- NOTE | 2023-09-02 23:27 | ED.GENADULT ---
HPI - General Adult General Chief complaint: Weakness Stated complaint: N/V, BRAVO, WEAKNESS Time Seen by Provider: 09/02/23 22:11 History of Present Illness HPI narrative: This is an 83-year-old female with alzheimers presenting to ED with a chief complaint of generalized weakness. The patient herself cannot answer any questions. History is obtained from the was at bedside. He said that over last 2 weeks she has had a sharp decline in her strength. She had been going to physical therapy but is no able to get out of bed without assistance. She was seen here August 28 for nausea diarrhea diarrhea a UTI at that time and discharged home. says she has been intermittently taking the antibiotics but she has not improved. Related Data Allergies Allergy/AdvReac Type Severity Reaction Status Date / Time rofecoxib Allergy Unknown UNSURE Verified 07/17/23 13:52 Sulfa (Sulfonamide Allergy Unknown Unknown Verified 07/17/23 13:52 Antibiotics) [facility] Past Medical History Medical History Acute pain of right wrist Alzheimer's dementia without behavioral disturbance Asthma Pulmonary function test in February 2019 showed mild obstructive ventilatory defect with severe small airway pattern with excellent response to bronchodilator. B12 deficiency Chronic headaches Chronic insomnia Chronic kidney disease, stage 3 Baseline creatinine is 1.30. Debility Dementia Depression GERD (gastroesophageal reflux disease) Gastritis noted on EGD in January [address] Garcia. History of diverticulitis History of small bowel obstruction Secondary to adhesions. 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 History of section, classical History of eye surgery Repair of macular hole. History of laparotomy Secondary to bowel obstruction, with adhesiolysis. History of removal of pigmented skin lesion History of surgery on left wrist With hardware. S/P ORIF (open reduction internal fixation) fracture Left wrist bee Status post cholecystectomy Status post right breast lumpectomy With benign pathology. Status post surgical removal of malignant neoplasm of skin Excision of basal cell carcinoma from the forehead. Status post total hysterectomy Family History Family History Mother Hypertension Father Family history of lymphoma Social History Social History Social History: The patient is and lives with her in [place]. 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 she designates her , Hussain, as her surrogate decision maker. She is listed as a full code. She is a lifelong nonsmoker and denies alcohol and drug abuse. She had 6 children and one . 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
[2023-09-03] VITALS (8 sets, daily range): BP systolic 144–207; BP diastolic 55–98; PULSE 66–85; RESP 16–23; TEMP 36.4–37.2; O2SAT 94–97; BMI 31.5
--- NOTE | 2023-09-03 00:05 | PC.NURSE ---
Pt having self limiting PSVT. Denies any symptoms. Back into regular rate/rhythm within seconds without intervention. Dr Porter notified.
[2023-09-03 00:46] LABS: Appearance Urine Clear (Clear); Bilirubin Urine Negative (Negative); Blood Urine Negative (Negative); Color Urine Yellow (Yellow); Glucose Urine UA Negative (Negative); Ketones Urine Negative (Negative); Leukocyte Esterase Ur Negative LEU/UL (Negative); Nitrate Urine Negative (Negative); Protein Urine Negative (Negative); Specific Grav Ur 1.013 (1.001-1.035); Urobilinogen Urine 0.2 mg/dL (<2.0); pH Urine 7.5 (5.0-9.0)
[2023-09-03 01:02] LABS: Add Urine Microscopic? NO
--- NOTE | 2023-09-03 01:41 | ECG_ITS ---
Measurements Intervals Shushan Rate: 88 P: 73 IN: 162 QRS: 32 QRSD: 73 T: 86 QT: 362 QTc: 438 Interpretive Statements SINUS RHYTHM NONSPECIFIC ST & T-WAVE ABNORMALITY ABNORMAL ECG COMPARED TO ECG 09/16/2022 15:51:[address] SEGMENT ABNORMALITY IS MORE PRONOUNCED Electronically Signed On 09-03-2023 7:28:12 DENTAL BILLING SPECIALIST by Nicola Flores M.D.
[2023-09-03] MEDS: POTASSIUM CHLORIDE 20 MEQ PACKET (FOR LIQUID) 40 MEQ PO (03:06)
--- NOTE | 2023-09-03 03:10 | PC.NURSE ---
Pt and linens cleaned once again d/t incontinence. Pt tolerated well.
--- NOTE | 2023-09-03 03:44 | ADMGEN ---
This patient, Theodora Pineda, was admitted to Medical Room 252-. Patient/family oriented to hospital policies and general routines including ID bracelet, bed and alarms, visiting hours, pain management, procedures, bathroom and other care routines, personal items, smoking policy, room service/diet, and visiting hours. Information on how to activate the Rapid Response Team has been discussed. Patient/Family are encouraged to report perceived risks to care and to ask questions if they do not understand what they are told or what they should do.
[2023-09-03 14:56] LABS: Basophils Percent Auto 0.3 % (0.2-1.2); Eosinophils Percent Auto 0.2 % (0-4.4); Hematocrit 39.9 % (37.0-47.0); Hemoglobin 12.8 g/dL (12.0-15.0); Immature Granulocyte Absolute 0.02 K/mm3 (0.00-0.031); Immature Granulocyte Percent A 0.2 % (0-0.5); Lymphocytes Absolute Auto 1.07 K/mm3 (0.9-3.2); Lymphocytes Percent Auto 10.7 % (18.3-44.2); Mean Corpuscular HGB Conc 32.1 g/dl (32-36); Mean Corpuscular Hemoglobin 29.7 pg (26-34); Mean Corpuscular Volume 92.6 fl (80-100); Mean Platelet Volume 9.2 fl (7.4-10.4); Monocytes Absolute Auto 1.2 K/mm3 (0.1-0.6); Monocytes Percent Auto 11.7 % (2.6-8.5); Neutrophils Absolute Auto 7.7 K/mm3 (1.3-6.7); Neutrophils Percent Auto 76.9 % (45.5-73.1); Platelet Count Result 244 k/mm3 (150-375); Red Blood Count 4.31 M/mm3 (4.2-5.4); Red Cell Distribution Width 13.4 % (11.5-14.5)
[2023-09-03 15:06] LABS: Anion Gap 7 mmol/L (8-16); Blood Urea Nitrogen 13 mg/dL (7-17); Calcium 8.7 mg/dL (8.4-10.2); Carbon Dioxide 28 mmol/L (22-30); Chloride 102 mmol/L (98-107); Estimated CRCL calculation 34 ml/min; Estimated Glomerular Filt Rate 43; Glucose 137 mg/dL (65-110); Magnesium 2.1 mg/dL (1.6-2.3); Potassium 3.5 mmol/L (3.4-5.0); Sodium 137 mmol/L (137-145)
--- NOTE | 2023-09-03 15:24 | PM.IMHP ---
H&P: HPI History of Present Illness Date/Time: 09/03/23 15:24 Chief Complaint: Weakness Narrative: This is a 83-year-old female with a history of Alzheimer's dementia, asthma, chronic headaches, CKD stage IIIA, depression, GERD, hypertension, hypothyroidism. Lives at home with the is typically A&O x2 and uses a walker for assistance. She presents to [place] with 2 weeks generalized weakness. She had been attending physical therapy as an outpatient but is now unable to get out of bed without assistance. She was recently seen on 08/28 in [place] ER for nausea diarrhea and was sent home diagnosed with a UTI. In [place] ER she received 2 L normal saline bolus and KCL 40 mEq x 1. Admitted on 09/03/2023. Upon evaluation in room 252 the patient reports persistent weakness and her runny nose but otherwise no complaints including shortness of breath or cough. She denies chest pain. She is worried about her kidneys and does not want remdesivir or Paxlovid. Review of Systems Review of Systems: All systems reviewed & are unremarkable except as noted in HPI and below (Subjective) [facility] Past Medical History Medical History Acute pain of right wrist Alzheimer's dementia without behavioral disturbance Asthma Pulmonary function test in February 2019 showed mild obstructive ventilatory defect with severe small airway pattern with excellent response to bronchodilator. B12 deficiency Chronic headaches Chronic insomnia Chronic kidney disease, stage 3 Baseline creatinine is 1.30. Debility Dementia Depression GERD (gastroesophageal reflux disease) Gastritis noted on EGD in January [address] Garcia. History of diverticulitis History of small bowel obstruction Secondary to adhesions. 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 History of section, classical History of eye surgery Repair of macular hole. History of laparotomy Secondary to bowel obstruction, with adhesiolysis. History of removal of pigmented skin lesion History of surgery on left wrist With hardware. S/P ORIF (open reduction internal fixation) fracture Left wrist bee Status post cholecystectomy Status post right breast lumpectomy With benign pathology. Status post surgical removal of malignant neoplasm of skin Excision of basal cell carcinoma from the forehead. Status post total hysterectomy Family History Family History Mother Hypertension Father Family history of lymphoma Social History Social History Social History: The patient is and lives with her in [place]. 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 she designates her , Hussain, as her surrogate decision maker. She is listed as a full code. She is a lifelong nonsmoker and denies alcohol and drug abuse. She had 6 children and one . Code status full code Smoking status: Never smoker Second hand tobacco smoke exposure: No Alcohol intake: never Substance use: never Substance use type: does not use Do You Feel Safe in your Home?: Yes Lack of Transportation: No Lack of Food: Never True Current Housing: I Have Housing Concerned About Future Housing: No Difficulty Paying Gas/Electric Bills: No Difficulty Paying for Meds
[2023-09-03 15:45] LABS: Procalcitonin 0.1 ng/mL
[2023-09-03] MEDS: ENOXAPARIN 40 MG/0.4 ML SYRINGE SUB-Q (16:10)
[2023-09-03] MEDS: MEMANTINE 10 MG TABLET PO (16:10)
[2023-09-03] MEDS: hydrALAZINE HCL 25 MG TABLET PO (16:10)
[2023-09-03] MEDS: QUEtiapine FUMARATE 25 MG TABLET PO (21:36)
[2023-09-03] MEDS: MONTELUKAST SODIUM 10 MG TABLET PO (21:36)
[2023-09-04 05:36] LABS: Basophils Percent Auto 0.5 % (0.2-1.2); Eosinophils Absolute Auto 0.1 K/mm3 (0-0.3); Eosinophils Percent Auto 0.8 % (0-4.4); Hematocrit 38.7 % (37.0-47.0); Hemoglobin 12.6 g/dL (12.0-15.0); Immature Granulocyte Absolute 0.03 K/mm3 (0.00-0.031); Immature Granulocyte Percent A 0.4 % (0-0.5); Lymphocytes Absolute Auto 1.25 K/mm3 (0.9-3.2); Lymphocytes Percent Auto 15.9 % (18.3-44.2); Mean Corpuscular HGB Conc 32.6 g/dl (32-36); Mean Corpuscular Hemoglobin 29.8 pg (26-34); Mean Corpuscular Volume 91.5 fl (80-100); Mean Platelet Volume 9.5 fl (7.4-10.4); Monocytes Percent Auto 13.2 % (2.6-8.5); Neutrophils Absolute Auto 5.5 K/mm3 (1.3-6.7); Neutrophils Percent Auto 69.2 % (45.5-73.1); Platelet Count Result 215 k/mm3 (150-375); Red Blood Count 4.23 M/mm3 (4.2-5.4); Red Cell Distribution Width 13.5 % (11.5-14.5); White Blood Count 7.9 K/mm3 (4.5-10.0)
[2023-09-04 05:51] LABS: Anion Gap 4 mmol/L (8-16); Blood Urea Nitrogen 15 mg/dL (7-17); Calcium 8.6 mg/dL (8.4-10.2); Carbon Dioxide 29 mmol/L (22-30); Chloride 104 mmol/L (98-107); Estimated CRCL calculation 37 ml/min; Estimated Glomerular Filt Rate 48; Glucose 103 mg/dL (65-110); Potassium 3.3 mmol/L (3.4-5.0); Sodium 137 mmol/L (137-145)
[2023-09-04 06:00] VITALS: BP 149/78; PULSE 86; RESP 16; TEMP 37.2; O2SAT 94
[2023-09-04] MEDS: LEVOTHYROXINE SODIUM 25 MCG TABLET PO (06:16)
[2023-09-04] MEDS: IRBESARTAN 150 MG TABLET 300 MG PO (10:56)
[2023-09-04] MEDS: ENOXAPARIN 40 MG/0.4 ML SYRINGE SUB-Q (10:57)
[2023-09-04] MEDS: hydroCHLOROthiazide 12.5 MG CAPSULE PO (10:57)
[2023-09-04] MEDS: hydrALAZINE HCL 25 MG TABLET PO (10:57)
[2023-09-04] MEDS: MEMANTINE 10 MG TABLET PO (10:57)
[2023-09-04 10:59] VITALS: BP 137/50; PULSE 81; RESP 14; O2SAT 94
--- NOTE | 2023-09-04 11:49 | PM.DS ---
DS: Admitting Diagnosis Discharge Date September 04, 2023 Admitting Diagnosis Weakness DS: Discharge Diagnosis Discharge Diagnosis (1) COVID: Code(s): U07.1 - COVID-19 Status: Acute (2) Generalized weakness: Code(s): R53.1 - Weakness Status: Acute (3) Acute hypokalemia: Code(s): E87.6 - Hypokalemia Status: Acute DS: Summary Hospital Course Hospital Course: This is a 83-year-old female with a history of Alzheimer's dementia, asthma, chronic headaches, CKD stage IIIA, depression, GERD, hypertension, hypothyroidism who lives at home with the is typically A&O x2 and uses a walker for assistance. He had been getting therapy as an outpatient but feeling more generally weak and decided to seek further evaluation and Tae. Admitted on 09/03/2023 for generalized weakness and COVID-19 positive incidentally found. The patient fared well although still weak, PTOT consulted and felt she should receive home health therapy moving forward. Some of this may have been due in part to COVID-19. However her only symptom was a runny nose and she did not want to use Paxil over the remdesivir. Her acute hypokalemia was also replaced. She had a recent UTI and was treated with cephalexin since 08/28 and repeat urinalysis on 09/03 was unremarkable. She is discharged home in stable condition on 09/04/2023 with PTOT. Was full code during her admission. Time Spent with Patient Time attestation: Total time spent providing and/or coordinating discharge services: Exam Const: General: comfortable and no acute distress Other: A&O x2. Globally weak Eyes: Pupils: Equal, round and reactive pupils present Neck: Neck: supple Resp: Effort & Inspection: normal respiratory effort Auscultation: clear to auscultation bilaterally Cardio: Rate: regular rate Rhythm: regular rhythm GI: GI Palp: Yes Soft to palpation and No Tenderness to palpation present (GI) Extrem: General: no edema DS: Data Data Completed and Pending Labs on day of discharge: Labs from last 24 hours 09/04/23 09/03/23 05:13 14:48 WBC 7.9 10.0 RBC 4.23 4.31 Hgb 12.6 12.8 Hct 38.7 39.9 MCV 91.5 92.6 MCH 29.8 29.7 MCHC 32.6 32.1 RDW 13.5 13.4 Plt Count 215 244 MPV 9.5 9.2 Immature Gran % (Auto) 0.4 0.2 Neut % (Auto) 69.2 76.9 H Lymph % (Auto) 15.9 L 10.7 L [place] % (Auto) 13.2 H 11.7 H Eos % (Auto) 0.8 0.2 Baso % (Auto) 0.5 0.3 Lymph # (Auto) 1.25 1.07 [place] # (Auto) 1.0 H 1.2 H Eos # (Auto) 0.1 0.0 Baso # (Auto) 0.0 0.0 Abs Immat Gran (auto) 0.03 0.02 Absolute Neuts (auto) 5.5 7.7 H Absolute Nucleated RBC 0.0 0.0 Nucleated RBC % 0.0 0.0 Sodium 137 137 Potassium 3.3 L 3.5 Chloride 104 102 Carbon Dioxide 29 28 Anion Gap 4 L 7 L BUN 15 13 Creatinine 1.10 H 1.20 H Estim Creat Clear Calc 37 34 Estimated GFR 48 L 43 L Glucose 103 137 H Calcium 8.6 8.7 Magnesium 2.0 2.1 Procalcitonin 0.1 Discharge Plan Discharge Attending physician on discharge: Winnie Diaz Discharging Clinician: Winnie Diaz Patient Disposition: Home Health Service Activity: november shower Diet: heart healthy Patient Instructions: Antibiotic Form, Fatigue (ED), COVID-19 (Coronavirus Disease 2019) (GEN), Physical Activity for Older Adults (GEN) Stand Alone Forms: General Discharge Information Follow-up/Referrals: Nila Sofia MD [Primary Care Provider] - 2 Weeks Discharge Medications: Continued hydralazine 25 mg tablet 25 mg PO BID Qty: 60 4RF irbesartan-hydrochlorothiazide 300-12.5 mg tablet 1 tablet PO DAILY Qty: 90 4RF memantine 10 mg tablet 10 mg PO BID Qty: 180 3RF quetiapine 25 mg tablet 25 mg PO HS levothyroxine 25 mcg tablet 25 mcg PO DAILY ondansetron 4 mg tablet,disintegrating 4 mg PO Q8H PRN (Reason: nausea and vomiting) Qty: 14 0RF rizatriptan 10 mg tablet
[2023-09-04] MEDS: POTASSIUM CHLORIDE 20 MEQ ER TABLET PO (12:38)
== END 2023-09-04 14:20 | disposition home or self-care (01) ==
LOC: ANHED 09-03 02:11 → ANH2MED 09-03 03:18
PROVIDERS: Admitting Provider Internal Medicine Infectious Disease; Emergency Provider Emergency Medicine; PCP Family Medicine; Visit Provider General Practice
DX: U07.1 COVID-19 (principal); R53.1 Weakness; G30.9 Alzheimer's disease, unspecified; F02.80 Dementia in other diseases classified elsewhere, unspecified severity, without behavioral disturbance, psychotic disturbance, mood disturbance, and anxiety; E87.6 Hypokalemia; I12.9 Hypertensive chronic kidney disease with stage 1 through stage 4 chronic kidney disease, or unspecified chronic kidney disease; N18.30 Chronic kidney disease, stage 3 unspecified; Z96.0 Presence of urogenital implants; Z99.89 Dependence on other enabling machines and devices; J45.909 Unspecified asthma, uncomplicated; E53.8 Deficiency of other specified B group vitamins; R94.31 Abnormal electrocardiogram [ECG] [EKG]; F32.A Depression, unspecified; K21.9 Gastro-esophageal reflux disease without esophagitis; F32.9 Major depressive disorder, single episode, unspecified; E03.9 Hypothyroidism, unspecified; Z79.51 Long term (current) use of inhaled steroids; Z79.899 Other long term (current) drug therapy
CPT/HCPCS: 36415; 71045; 74177; 80048; 80053; 81003; 83690; 83735; 84145; 85025; 87637; 93005; 96360; 96372; 97161; 97165; 99285; A9270; G0378; J1650; J7030; Q9967

== ENCOUNTER 2023-09-20 09:36 | Outpatient (CLI) | payer MEDICARE, SELFPAY ==
[2023-09-20 10:35] LABS: Alanine Aminotransferase 22 U/L (6-35); Albumin Level 4.4 g/dL (3.5-5.1); Alkaline Phosphatase 71 U/L (38-126); Anion Gap 6 mmol/L (8-16); Aspartate Amino Transferase 27 U/L (14-36); Bilirubin,Total 0.6 mg/dL (0.2-1.3); Blood Urea Nitrogen 16 mg/dL (7-17); Calcium 9.7 mg/dL (8.4-10.2); Carbon Dioxide 29 mmol/L (22-30); Chloride 105 mmol/L (98-107); Estimated Glomerular Filt Rate 43; Glucose 103 mg/dL (65-110); Potassium 3.8 mmol/L (3.4-5.0); Sodium 140 mmol/L (137-145)
[2023-09-20 10:36] LABS: Basophils Percent Auto 0.6 % (0.2-1.2); Eosinophils Absolute Auto 0.3 K/mm3 (0-0.3); Hematocrit 42.3 % (37.0-47.0); Hemoglobin 13.8 g/dL (12.0-15.0); Immature Granulocyte Absolute 0.01 K/mm3 (0.00-0.031); Immature Granulocyte Percent A 0.1 % (0-0.5); Lymphocytes Absolute Auto 1.39 K/mm3 (0.9-3.2); Lymphocytes Percent Auto 19.8 % (18.3-44.2); Mean Corpuscular HGB Conc 32.6 g/dl (32-36); Mean Corpuscular Hemoglobin 29.5 pg (26-34); Mean Corpuscular Volume 90.4 fl (80-100); Mean Platelet Volume 9.4 fl (7.4-10.4); Monocytes Absolute Auto 0.6 K/mm3 (0.1-0.6); Neutrophils Absolute Auto 4.8 K/mm3 (1.3-6.7); Neutrophils Percent Auto 67.5 % (45.5-73.1); Platelet Count Result 267 k/mm3 (150-375); Red Blood Count 4.68 M/mm3 (4.2-5.4); Red Cell Distribution Width 13.3 % (11.5-14.5)
[2023-09-20 11:06] LABS: Total Triiodothyronine (T3) 1.23 NG/ML (0.97-1.69)
[2023-09-20 11:09] LABS: Hemoglobin A1C 5.7 % (<5.7)
[2023-09-20 11:16] LABS: Free T4 Free Thyroxine 1.03 ng/mL (0.78-2.19)
[2023-09-24 07:19] LABS: Vitamin D 1,25 (OH)2 Total 43 pg/mL (18-72); Vitamin D2 1,25 (OH)2 <8 pg/mL; Vitamin D3 1,25 (OH)2 43 pg/mL
== END 2023-09-20 09:37 | disposition home or self-care (01) ==
PROVIDERS: PCP Family Medicine; Visit Provider Family Medicine
DX: E55.9 Vitamin D deficiency, unspecified (principal); E03.9 Hypothyroidism, unspecified; I10 Essential (primary) hypertension; E11.9 Type 2 diabetes mellitus without complications
CPT/HCPCS: 36415; 80053; 82652; 83036; 84439; 84443; 84480; 85025

== ENCOUNTER 2024-06-27 16:57 | Outpatient (CLI) | payer MEDICARE, SELFPAY ==
[2024-06-27 17:23] LABS: Basophils Percent Auto 0.5 % (0.2-1.2); Eosinophils Absolute Auto 0.2 K/mm3 (0-0.3); Eosinophils Percent Auto 3.2 % (0-4.4); Hematocrit 40.8 % (37.0-47.0); Hemoglobin 13.6 g/dL (12.0-15.0); Immature Granulocyte Absolute 0.02 K/mm3 (0.00-0.031); Immature Granulocyte Percent A 0.3 % (0-0.5); Lymphocytes Absolute Auto 2.03 K/mm3 (0.9-3.2); Lymphocytes Percent Auto 26.7 % (18.3-44.2); Mean Corpuscular HGB Conc 33.3 g/dl (32-36); Mean Corpuscular Hemoglobin 30.2 pg (26-34); Mean Corpuscular Volume 90.7 fl (80-100); Mean Platelet Volume 8.8 fl (7.4-10.4); Monocytes Absolute Auto 0.8 K/mm3 (0.1-0.6); Neutrophils Absolute Auto 4.5 K/mm3 (1.3-6.7); Neutrophils Percent Auto 59.3 % (45.5-73.1); Platelet Count Result 238 k/mm3 (150-375); Red Cell Distribution Width 12.7 % (11.5-14.5); White Blood Count 7.6 K/mm3 (4.5-10.0)
[2024-06-27 17:36] LABS: Alanine Aminotransferase 17 U/L (6-35); Albumin Level 4.6 g/dL (3.5-5.1); Alkaline Phosphatase 66 U/L (38-126); Anion Gap 4 mmol/L (4-12); Aspartate Amino Transferase 30 U/L (14-36); Bilirubin,Total 0.5 mg/dL (0.2-1.3); Blood Urea Nitrogen 19 mg/dL (7-17); Calcium 9.4 mg/dL (8.4-10.2); Carbon Dioxide 31 mmol/L (22-30); Chloride 106 mmol/L (98-107); Estimated Glomerular Filt Rate 39; Glucose 115 mg/dL (65-110); Potassium 3.5 mmol/L (3.4-5.0); Sodium 141 mmol/L (137-145)
[2024-06-27 18:02] LABS: Free T4 Free Thyroxine 1.04 ng/dL (0.78-2.19)
== END 2024-06-27 16:58 | disposition home or self-care (01) ==
LOC: ANHLAB 16:58
PROVIDERS: PCP Family Medicine; Visit Provider Physician Assistant
DX: R53.1 Weakness (principal); E07.9 Disorder of thyroid, unspecified
CPT/HCPCS: 36415; 80053; 84439; 84443; 85025

== ENCOUNTER 2024-07-10 11:40 | Outpatient (CLI) | payer MEDICARE, SELFPAY ==
--- NOTE | ~2024-07-10 | MM_ITS ---
EXAMINATION: MM screening [facility] BI w victoria HISTORY: Screening mammogram TECHNIQUE: Craniocaudal and mediolateral oblique 3-D tomosynthesis images were obtained and synthetic 2-D images were generated. CAD analysis was submitted and interpreted. COMPARISON: 05/08/2023, 02/13/2022, 12/20/2020 BREAST PARENCHYMAL COMPOSITION:Not Dense. There are scattered areas of fibroglandular density. FINDINGS: No suspicious mass, calcification, or architectural distortion are identified in either triston ast to suggest malignancy. There has been no suspicious interval change. IMPRESSION: No mammographic evidence of malignancy. Recommend routine screening mammography in one year. BI-RADS Category 1: Negative Reviewed, dictated and finalized at location . NCIAL ADVISER
== END 2024-07-10 11:41 | disposition home or self-care (01) ==
PROVIDERS: PCP Physician Assistant; Visit Provider Physician Assistant
DX: Z12.31 Encounter for screening mammogram for malignant neoplasm of breast (principal)
CPT/HCPCS: 77063; 77067

== ENCOUNTER 2024-11-04 12:16 | Outpatient (CLI) | payer MEDICARE, SELFPAY ==
--- OUTSIDE RECORDS SUMMARY | 2024-11-04 13:19 | XMS_ITS | Clinical Summary ---
Author Organization [facility] Address [address] [place] [address] Care Team Providers Care Recapper Name Role Phone Unavailable Primary Care Provider Unavailabl e Social History Tobacco Use Types Packs/Day Years Used Date Smoking Tobacco: Never Assessed Comments Unknown Sex and Gender Information Value Date Recorded Sex Assigned at Not on file Legal Sex Female 7:08 PM CDT Gender Identity Not on file Sexual Orientation Not on file Plan of Treatment Health Maintenance Due Date Last Done Comments DTaP, Tdap and Td Vaccines ( 1 - Tdap) 1961 Pneumococcal Vaccine: 50+ Ye ars (1 of 1 - PCV) 1992 Zoster Vaccines (1 of 2) 1992 Dexa Scan (General) 2007 RSV Immunization or 60+ Years (1 - 1-dose 75+ series) 2017 COVID-19 Vaccine (2023-2 5 season) 2024 Meningococcal B Vaccine Aged Out No l onger eligible based on patient's age to complete this topic Meningococcal Vaccine Aged Out No mau jl eligible based on patient's age to complete this topic RSV Immunizations Under 20 Months Aged Out No longer eligible based on patient's age to complete this topic
--- OUTSIDE RECORDS SUMMARY | 2024-11-04 13:19 | XMS_ITS | Clinical Summary ---
Author Organization [facility] Address [address] [place] [address] Care Team Providers Care Admissions Coordinator Name Role Phone Nila Sofia MD Primary Care Provider + Source Comments [facility],non-owned Affiliates and Associated Physician Practices is amultiple site organization consisting of ambulatory clinics and hospital sitesin [place], [place]. This disclosure is being madepursuant to the Care Everywhere program and may not contain all information available regarding this patient. Last updated 18.[facility] [employer] Allergies Active Allergy Reactions Criticality Noted Date Comments Sulfa Drugs 04/04/2017 Medications * Be aware that medications may not be up to date on this document. Alwaysverify current medications with the patient. esomeprazole (NEXIUM) 40 MG capsule Take 40 mg by mouth daily before breakfast Active ALPRAZolam (XANAX) 1 MG tablet Take 1 mg by mouth 2 times daily as needed for Anxiety Active metoprolol succinate XL 24hr (TOPROL XL) 50 MG tablet Take 50 mg by mouth once daily Active sertraline (ZOLOFT) 25 MG tabletIndicatio ns:2 tabs Take 25 mg by mouth once daily Reasons: 2 tabs Active rizatriptan (MAXALT) 10 MG tabletIndicatio ns:max of 3 tabs a day Take 10 mg by mouth daily as needed - may repeat one time for Migraine (q 2 hours) N Reasons: max of 3 tabs a day Active Active Problems Problem Noted Date Diagnosed Date Syncope and collapse 04/04/2017 Abdominal pain, generalized 04/04/2017 Renal insufficiency 04/04/2017 Nausea and vomiting 04/04/2017 Resolved Problems Problem Noted Date Diagnosed Date Resolved Date Dehydration 04/04/2017 04/18/2017 Social History Tobacco Use Types Packs/Day Years Used Date Smoking Tobacco: Never Smokeless Tobacco: Never Alcohol Use Standard Drinks/Week Comments No 0 (1 standard drink = 0.6 oz pur e alcohol) Comments Unknown Sex and Gender Information Value Date Recorded Sex Assigned at Not on file Legal Sex Female 12:15 AM CDT Gender Identity Not on file Sexual Orientation Not on file Last Filed Vital Signs Vital Sign Reading Time Taken Comments Blood Pressure 139/60 04/05/2017 11:44 AM CDT Pulse 54 04/05/2017 11:44 AM CDT Temperature 36.9 C (98.4 F) 04/05/2017 11:44 AM CDT Respiratory Rate 17 04/05/2017 11:4 4 AM CDT Oxygen Saturation 96% 04/05/2017 11: 44 AM CDT Inhaled Oxygen Concentration - - Weight 87.9 kg (193 lb 12.6 oz) 04/05/2017 4:40 AM CDT Height 162.6 cm (5' 4 ) 04/04/2017 5:36 AM CDT Body Mass Index 33.26 04/04/2017 5:36 AM CDT Plan of Treatment Health Maintenance Due Date Last Done Comments BONE DENSITY TESTING 1942 DTAP/TDAP/TD VACCINES (1 - Tdap) 1961 PNEUMOCOCCAL VACCINE 50+ (1 of 1 - PCV) 1992 ZOSTER VACCINE (1 of 2) 1992 Respiratory Syncytial Virus (RSV) Vaccine Pt: or over 60 yrs (1 - 1-dose 75+ series) 2017 COVID-19 VACCINE ( - 2023-2 5 season) 2024 DEPRESSION SCREENING 07/09/2024 INFLUENZA VACCINE (Season Ended) 2025 HEPATITIS B VACCINE Aged Out No longe r eligible based on patient's age to complete this topic HIB VACCINE Aged Out No longer eligi ble based on patient's age to complete this topic HPV VACCINE Aged Out No longer eligi ble based on patient's age to complete this topic MENINGOCOCCAL (Group B) VACC INE SHARED DECISION-MAKING Aged Out No longer eligibl e based on patient's age to complete this topic MENINGOCOCCAL GROUPS A/C/Y/W VACCINE Aged Out No longer eligible b ased on patient's age to complete this topic Insurance MEDICARE UHC MANAGED MEDICARE ADV MEDICARE [facility] Advance Directives * Full Code (Latest Code Status on File) Date Activated Date Inactivated Comments 04/04/2017 5:30 AM 04/05/2017 5:33 PM Care Teams Admissions Coordinator Relationship Specialty Start Date End Date Nila Sofia MD [address] [place] [address] PCP - General Family Medicine 04/04/17
[2024-11-04 14:06] LABS: Bilirubin Urine Negative (Negative); Blood Urine Negative (Negative); Color Urine Yellow (Yellow); Glucose Urine UA Negative (Negative); Ketones Urine Negative (Negative); Leukocyte Esterase Ur Negative LEU/UL (Negative); Nitrate Urine Negative (Negative); Protein Urine Negative (Negative); Specific Grav Ur 1.008 (1.001-1.035); Urobilinogen Urine 0.2 mg/dL (<2.0); pH Urine 6.5 (5.0-9.0)
[2024-11-04 14:09] LABS: Add Urine Microscopic? NO; Appearance Urine Clear (Clear)
== END 2024-11-04 12:17 | disposition home or self-care (01) ==
LOC: ANHLAB 12:17
PROVIDERS: PCP Family Medicine; Visit Provider Student in an Organized Health Care Education/Training Program
DX: R30.0 Dysuria (principal)
CPT/HCPCS: 81003

== ENCOUNTER 2024-11-14 12:49 | Outpatient (CLI) | payer MEDICARE, SELFPAY ==
--- OUTSIDE RECORDS SUMMARY | 2024-11-14 12:52 | XMS_ITS | Clinical Summary ---
Author Organization [facility] Address [address] [place] [address] Care Team Providers Care Network Account Manager Name Role Phone Nila Sofia MD Primary Care Provider + Source Comments [facility],non-owned Affiliates and Associated Physician Practices is amultiple site organization consisting of ambulatory clinics and hospital sitesin [place], [place], [place] and [place]. This disclosure is being madepursuant to the Care Everywhere program and may not contain all information available regarding this patient. Last updated 18.[facility] Allergies Active Allergy Reactions Criticality Noted Date [...] Insurance MEDICARE UHC MANAGED MEDICARE ADV MEDICARE [facility] Advance Directives * Full Code (Latest Code Status on File) Date Activated Date Inactivated Comments 04/04/2017 5:30 AM 04/05/2017 5:33 PM Care Teams Network Account Manager Relationship Specialty Start Date End Date Nila Sofia MD [address] [place] [address] PCP - General Family Medicine 04/04/17
--- OUTSIDE RECORDS SUMMARY | 2024-11-14 12:52 | XMS_ITS | Clinical Summary ---
Author Organization [facility] Address [address] [place] [address] Care Team Providers Care Turkey Picker Name Role Phone Unavailable Primary Care Provider [...]
[2024-11-14 13:39] LABS: Basophils Percent Auto 0.5 % (0.2-1.2); Eosinophils Absolute Auto 0.2 K/mm3 (0-0.3); Eosinophils Percent Auto 2.3 % (0-4.4); Hematocrit 41.9 % (37.0-47.0); Hemoglobin 13.7 g/dL (12.0-15.0); Immature Granulocyte Absolute 0.03 K/mm3 (0.00-0.031); Immature Granulocyte Percent A 0.4 % (0-0.5); Lymphocytes Absolute Auto 1.72 K/mm3 (0.9-3.2); Lymphocytes Percent Auto 22.1 % (18.3-44.2); Mean Corpuscular HGB Conc 32.7 g/dl (32-36); Mean Corpuscular Volume 91.9 fl (80-100); Mean Platelet Volume 9.1 fl (7.4-10.4); Monocytes Absolute Auto 0.7 K/mm3 (0.1-0.6); Monocytes Percent Auto 9.2 % (2.6-8.5); Neutrophils Absolute Auto 5.1 K/mm3 (1.3-6.7); Neutrophils Percent Auto 65.5 % (45.5-73.1); Platelet Count Result 268 k/mm3 (150-375); Red Blood Count 4.56 M/mm3 (4.2-5.4); Red Cell Distribution Width 12.8 % (11.5-14.5); White Blood Count 7.8 K/mm3 (4.5-10.0)
[2024-11-14 13:51] LABS: Alanine Aminotransferase 19 U/L (6-35); Albumin Level 4.7 g/dL (3.5-5.1); Alkaline Phosphatase 57 U/L (38-126); Anion Gap 9 mmol/L (4-12); Aspartate Amino Transferase 30 U/L (14-36); Bilirubin,Total 0.3 mg/dL (0.2-1.3); Blood Urea Nitrogen 19 mg/dL (7-17); Calcium 9.3 mg/dL (8.4-10.2); Carbon Dioxide 29 mmol/L (22-30); Chloride 104 mmol/L (98-107); Estimated Glomerular Filt Rate 46; Glucose 113 mg/dL (65-110); Potassium 3.5 mmol/L (3.4-5.0); Sodium 142 mmol/L (137-145)
== END 2024-11-14 12:50 | disposition home or self-care (01) ==
PROVIDERS: PCP Family Medicine; Visit Provider Student in an Organized Health Care Education/Training Program
DX: E03.9 Hypothyroidism, unspecified (principal); I10 Essential (primary) hypertension
CPT/HCPCS: 36415; 80053; 84439; 84443; 85025

== ENCOUNTER 2025-06-10 08:41 | Observation (INO) | payer MEDICARE, SELFPAY ==
[2025-06-10] VITALS (21 sets, daily range): BP systolic 127–177; BP diastolic 60–128; PULSE 48–190; RESP 17–24; TEMP 36.3–37.1; O2SAT 95–100; BMI 32.2; BMI 31.4
--- NOTE | ~2025-06-10 | XR_ITS ---
Examination: XR chest 2V Clinical History: chest pain Comparison: 09/03/2023 Technique: PA and Lateral Findings: Cardiomediastinal silhouette normal size and configuration. Lungs clear. No acute bony abnormality. IMPRESSION: 1. No acute cardiopulmonary findings. Reviewed, dictated and finalized at location [facility]
--- NOTE | 2025-06-10 08:43 | ECG_ITS ---
Test Date: 2025-06-10 08:49:51 Measurements Intervals [place] Rate: 163 P: 0 [place]: 0 QRS: 22 QRSD: 64 T: 131 QT: 201 QTc: 331 Interpretive Statements ATRIAL FIBRILLATION WITH RAPID VENTRICULAR RESPONSE ST-T WAVE ABNORMALITY IN DIFFUSE LEADS- CONSIDER ISCHEMIA OR RATE RELATED BASELINE ARTIFACT- I, II, III, AVR, AVL, AVF, V1-V2 ABNORMAL ECG No previous ECG available for comparison Electronically Signed On 06-10-2025 10:00:40 BILINGUAL OFFICE ASSISTANT by Nestor Rayo D.O.
[2025-06-10] MEDS: METOPROLOL TARTRATE INJ 5 MG/5 ML VIAL IV PUSH ×3 (08:59→10:15)
--- NOTE | 2025-06-10 09:00 | PC.NURSE ---
2 mg metoprolol given for hr 190. B/P 161/96
--- NOTE | 2025-06-10 09:00 | PC.NURSE ---
3 mg metoprolol given for HR 170. B/P 160/109
[2025-06-10 09:05] LABS: Hematocrit 43.1 % (37.0-47.0); Hemoglobin 14.5 g/dL (12.0-15.0); Immature Granulocyte Percent A 0.3 % (0-0.5); Lymphocytes Absolute Auto 1.91 K/mm3 (0.9-3.2); Mean Corpuscular HGB Conc 33.6 g/dl (32-36); Mean Corpuscular Hemoglobin 30.3 pg (26-34); Mean Corpuscular Volume 90.2 fl (80-100); Nucleated Red Blood Cells Absolute Auto 0.000 K/mm3 (0.0-0.012); Nucleated Red Blood Cells Perc 0.0 % (0.0-0.2); Platelet Count Result 250 k/mm3 (150-375); Red Blood Count 4.78 M/mm3 (4.2-5.4); White Blood Count 9.9 K/mm3 (4.5-10.0)
[2025-06-10] MEDS: LACTATED RINGERS 1,000 ML 999 ML IV CONT ×2 (09:07→11:11)
--- OUTSIDE RECORDS SUMMARY | 2025-06-10 09:08 | XMS_ITS | Clinical Summary ---
Author Organization [facility] Address [address] [address] Care Team Providers Care Sheet Metal Duct Installer Helper Name Role Phone Nila Sofia MD Primary Care Provider + Source Comments [facility],non-owned Affiliates and Associated Physician Practices is amultiple site organization consisting of ambulatory clinics and hospital sitesin [place], [place], [place] and [place]. This disclosure is being madepursuant to the Care Everywhere program and may not contain all information available regarding this patient. Last updated 18.[facility] Allergies Active Allergy Reactions Criticality Noted Date [...] 4:40 AM CDT Height 162.6 cm (5' 4) 04/04/2017 5:36 AM CDT Body Mass Index 33.26 04/04/2017 5:36 AM CDT Plan of Treatment Health Maintenance Due Date Last Done Comments BONE DENSITY TESTING 1942 DTAP/TDAP/TD VACCINES (1 - Tdap) 1961 PNEUMOCOCCAL VACCINE 50+ (1 of 1 - PCV) 1992 ZOSTER VACCINE (1 of 2) 1992 Respiratory Syncytial Virus (RSV) Vaccine Pt: or over 60 yrs (1 - 1-dose 75+ series) 2017 DEPRESSION SCREENING 07/09/2024 COVID-19 VACCINE ( - 2024-2 6 season) 2025 INFLUENZA VACCINE (#1) 2025 HEPATITIS B VACCINE Aged Out No [...] Insurance MEDICARE UHC MANAGED MEDICARE ADV MEDICARE [facility] Advance Directives * Full Code (Latest Code Status on File) Date Activated Date Inactivated Comments 04/04/2017 5:30 AM 04/05/2017 5:33 PM Care Teams Sheet Metal Duct Installer Helper Relationship Specialty Start Date End Date Nila Sofia MD [address] [place] [address] PCP - General Family Medicine 04/04/17
--- NOTE | 2025-06-10 09:10 | PC.NURSE ---
Hr 156 2mg metoprolol given. B/P 169/109
--- NOTE | 2025-06-10 09:11 | PC.NURSE ---
3 mg Metoprolol given. HR 158 B/P 152/106
[2025-06-10 09:16] LABS: INR 0.9; Prothrombin Time 12.3 Seconds (11.1-14.7)
[2025-06-10 09:17] LABS: Partial Thromboplastin Time 25.2 Seconds (22.3-36.8)
[2025-06-10 09:39] LABS: Alanine Aminotransferase 24 U/L (6-35); Albumin Level 4.8 g/dL (3.5-5.1); Alkaline Phosphatase 72 U/L (38-126); Anion Gap 8 mmol/L (4-12); Aspartate Amino Transferase 41 U/L (14-36); Bilirubin,Total 0.6 mg/dL (0.2-1.3); Blood Urea Nitrogen 25 mg/dL (7-17); Calcium 9.7 mg/dL (8.4-10.2); Carbon Dioxide 26 mmol/L (22-30); Chloride 106 mmol/L (98-107); Estimated CRCL calculation 31 ml/min; Estimated Glomerular Filt Rate 40; Glucose 137 mg/dL (65-110); Lipase 410 U/L (23-300); Potassium 4.1 mmol/L (3.4-5.0); Sodium 140 mmol/L (137-145); Total Protein 8.9 g/dL (6.3-8.2)
[2025-06-10] MEDS: METOPROLOL TARTRATE 50 MG TAB PO (09:45)
[2025-06-10 09:48] LABS: Troponin I 0.012 ng/mL (0.000-0.034)
--- OUTSIDE RECORDS SUMMARY | 2025-06-10 09:49 | XMS_ITS | Clinical Summary ---
Author Organization [facility] Address [address] [place] [address] Care Team Providers Care Rehabilitation Clerk Name Role Phone Nila Sofia MD Primary Care Provider + Source Comments [facility],non-owned Affiliates and Associated Physician Practices is amultiple site organization consisting of ambulatory clinics and hospital sitesin [place], [place], [place] and [place]. This disclosure is being madepursuant to the Care Everywhere program and may not contain all information available regarding this patient. Last updated 18.[facility] [employer] Allergies Active Allergy Reactions Criticality Noted Date [...] Insurance MEDICARE UHC MANAGED MEDICARE ADV MEDICARE [facility] Advance Directives * Full Code (Latest Code Status on File) Date Activated Date Inactivated Comments 04/04/2017 5:30 AM 04/05/2017 5:33 PM Care Teams Rehabilitation Clerk Relationship Specialty Start Date End Date Nila Sofia MD [address] [place] [address] PCP - General Family Medicine 04/04/17
--- OUTSIDE RECORDS SUMMARY | 2025-06-10 09:49 | XMS_ITS | Clinical Summary ---
Author Organization [facility] Address [address] [place] [address] Care Team Providers Care Psychic Reader Name Role Phone Unavailable Primary Care Provider [...] - 1-dose 75+ series) 2017 COVID-19 Vaccine (2024-2 6 season) 2025 Influenza Adult (#1) 2025 Hepatitis A Vaccines Aged Out No long er eligible based on patient's age to complete this topic Meningococcal B Vaccine Aged Out No l onger eligible based on patient's age to complete this topic Meningococcal Vaccine Aged Out No mau jl eligible based on patient's age to complete this topic RSV Immunizations Under 20 Months Aged Out No longer eligible based on patient's age to complete this topic
--- NOTE | 2025-06-10 10:12 | ED_ITS ---
HPI - Chest Pain General Chief Complaint: Chest Pain Stated Complaint: CP this AM Time Seen by Provider: 06/10/25 08:55 History of Present Illness HPI narrative: This morning, patient started feeling short of breath, with some chest tightness and feeling her heart racing. Has never had this in the past, no history of atrial fibrillation. 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 Depression Chronic kidney disease, stage 3 Baseline creatinine is 1.30. History of small bowel obstruction Secondary to adhesions. History of diverticulitis GERD (gastroesophageal reflux disease) Gastritis noted on EGD in January [address] Garcia. SIRS (systemic inflammatory response syndrome) Dementia Surgical History Surgical History History of removal of pigmented skin lesion S/P ORIF (open reduction internal fixation) fracture Left wrist bee History of section, classical H/O cataract extraction X6 History of eye surgery Repair of macular hole. Status post surgical removal of malignant neoplasm of skin Excision of basal cell carcinoma from the forehead. History of surgery on left wrist With hardware. History of section X6. Status post right breast lumpectomy With benign pathology. Status post cholecystectomy Status post total hysterectomy History of laparotomy Secondary to bowel obstruction, with adhesiolysis. Family History Family History Mother Hypertension Father Family history of lymphoma Social History Social History Social History: The patient is and lives with her in [place]. 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 she designates her , Hussain, as her surrogate decision maker. She is listed as a full code. She is a lifelong nonsmoker and denies alcohol and drug abuse. She had 6 children and one . Code status full code Smoking status: Never smoker Second hand tobacco smoke exposure: No Alcohol intake: never Substance use: never Substance use type: does not use Lack of Transportation: No Lack of Food: Never True Current Housing: I Have Housing Concerned About Future Housing: No Difficulty Paying Gas/Electric Bills: No Difficulty Paying for Meds: No Currently Unemployed: No Education: High School Diploma/GED Difficulty w/ Childcare or Family Care: No Living arrangements: with family Occupation/Education: retired Gender identity (if verbalized by the patient): Female Sexual Orientation (if Verbalized by the Patient): Straight or Heterosexual Spiritual care concerns: Yes Exam 2 Narrative: EXAMINATION OF ORGAN SYSTEMS/BODY AREAS: Constitutional: Vital signs per nursing GENERAL: Appears uncomfortable HEAD: Normal with no signs of head trauma. EYES: EOMI, conjunctiva normal ENT: Hearing grossly intact LUNGS: Nonlabored breathing. HEART: Irregular, tachycardic ABD: [Soft], [nontender to palpation] EXT: Normal range of motion SKIN: [No rashes or lesions.] NEURO: [Alert. No gross focal sensory or strength deficits.] PSYCH: Normal affect Course Vital Signs Vital signs: Vital Signs Temperature 97.5 F L 06/10/25 08:47 Pulse Rate 181 H 06/10/25 08:47 Respiratory Rate 17 06/10/25 08:47 Blood Pressure 161/96 H 06/10/25 08:47 Pulse Oximetry 100 06/10/25 08:47 Oxygen Delivery Room Air 06/10/25 08:47 Temperature 97.5 F L 06/10/25 08:47 Pulse Rate 133 H 06/10/25 09:45 Respiratory Rate 20 06/10/25 09:13 Blood Pressure 152/106 H 06/10/25 09:13 Pulse Oximetry 97 06/10/25 09:13 Oxygen Delivery Nasal Cannula 06/10/25 08:56 Oxygen Flow Rate 2 06/10/25 08:56 [facility] Narrative Medical decision making narrative: Patient presenting here with sudden shortness of breath, rapid heart rate, started this morning. No history of arrhythmias. EKG - 12-Lead: Performed at 0849. Interpreted by me. Atrial fibrillation with RVR. Rate 163. [Normal] axis. QRS duration 64. QTc 331. Some T-wave depressions. On exam she is in AFib with RVR, I did immediately assessed the patient, she has no history of heart failure however given her age and risk factors, to be on the safe side, I did attempt metoprolol since she is hemodynamically stable, after the 2nd dose her heart rate did improve from 180s to the 120s to 130s, I did therefore give a p.o. dose, and tried another IV dose. At this time since her heart rate still but 110, I do feel she will need to be admitted for better heart rate control, likely started on anticoagulation. Discussed with hospitalist and income tax investigator. Trops neg. Patient updated, agreeable to plan, she does feel slightly better now that her heart rate is lower. Differential Diagnosis Differential Diagnosis: afib rvr, infection, pneumonia, acs, etc Lab Data 06/10/25 08:56 06/10/25 08:56 Labs: Lab Results 06/10/25 Range/Units 08:56 WBC 9.9 (4.5-10.0) K/mm3 RBC 4.78 (4.2-5.4) M/mm3 Hgb 14.5 (12.0-15.0) g/dL Hct 43.1 (37.0-47.0) % MCV 90.2 (80-100) fl MCH 30.3 (26-34) pg MCHC 33.6 (32-36) g/dl RDW 12.6 (11.5-14.5) % Plt Count 250 (150-375) k/mm3 MPV 8.8 (7.4-10.4) fl Immature Gran % (Auto) 0.3 (0-0.5) % Neut % (Auto) 71.3 (45.5-73.1) % Lymph % (Auto) 19.4 (18.3-44.2) % [place] % (Auto) 6.9 (2.6-8.5) % Eos % (Auto) 1.6 (0-4.4) % Baso % (Auto) 0.5 (0.2-1.2) % Lymph # (Auto) 1.91 (0.9-3.2) K/mm3 [place] # (Auto) 0.7 H (0.1-0.6) K/mm3 Eos # (Auto) 0.2 (0-0.3) K/mm3 Baso # (Auto) 0.1 (0.0-0.1) K/mm3 Abs Immat Gran (auto) 0.03 (0.00-0.031) K/mm3 Absolute Neuts (auto) 7.0 H (1.3-6.7) K/mm3 Absolute Nucleated RBC 0.000 (0.0-0.012) K/mm3 Nucleated RBC % 0.0 (0.0-0.2) % PT 12.3 (11.1-14.7) Seconds INR 0.9 APTT 25.2 (22.3-36.8) Seconds Sodium 140 (137-145) mmol/L Potassium 4.1 (3.4-5.0) mmol/L Chloride 106 (98-107) mmol/L Carbon Dioxide 26 (22-30) mmol/L Anion Gap 8 (4-12) mmol/L BUN 25 H (7-17) mg/dL Creatinine 1.28 H (0.7-1.0) mg/dL Estim Creat Clear Calc 31 ml/min Estimated GFR 40 L (59 - ) Glucose 137 H (65-110) mg/dL Calcium 9.7 (8.4-10.2) mg/dL Total Bilirubin 0.6 (0.2-1.3) mg/dL AST 41 H (14-36) U/L ALT 24 (6-35) U/L Alkaline Phosphatase 72 (38-126) U/L Troponin I 0.012 (0.000-0.034) ng/mL Total Protein 8.9 H (6.3-8.2) g/dL Albumin 4.8 (3.5-5.1) g/dL Lipase 410 H (23-300) U/L Imaging Data Radiologist's impression: ITS Impressions Chest X-Ray 06/10/25 09:29 IMPRESSION: 1. No acute cardiopulmonary findings. Critical Care Time Critical Care Time Critical Care Time: Yes Initial evaluation, discuss w/ involved parties, attempting to gather old records: 10 minutes Documenting medical record: 5 minutes Review of results (EKG's, labs, imaging): 5 minutes Serial repeat bedside evaluation: 10 minutes Discussing case with multiple memebers of the care team and consultants: 5 minutes Total Critical Care Time: 35 Discharge Plan Discharge Clinical Impression: Atrial fibrillation with rapid ventricular response Patient Disposition: Still a Patient Condition: Serious Patient Language: Belarusian Prescriptions: No Action docusate sodium 100 mg capsule 100 mg PO DAILY Qty: 90 1RF albuterol sulfate [ProAir HFA] 90 mcg/actuation HFA aerosol inhaler 1 puff INHALATION Q4H PRN (Reason: shortness of breath or wheezing) Qty: 8.5 0RF citalopram 10 mg tablet 10 mg PO DAILY Qty: 90 1RF irbesartan-hydrochlorothiazide 300-12.5 mg tablet 1 tablet PO DAILY Qty: 90 4RF rizatriptan 10 mg tablet See Rx Instructions .ROUTE .COMPLEX Qty: 14 0RF Dose Instruction: TAKE 1 TABLET BY MOUTH DAILY NEEDED FOR MIGRAINE HEADACHE. MAY REPEAT IN 2 HOURS. MAXIMUM OF 3 TABLETS IN 24 HOURS Rx Instructions: TAKE 1 TABLET BY MOUTH DAILY NEEDED FOR MIGRAINE HEADACHE. MAY REPEAT IN 2 HOURS. MAXIMUM OF 3 TABLETS IN 24 HOURS hydralazine 25 mg tablet 25 mg PO TID Qty: 90 4RF potassium citrate 10 mEq (1,080 mg) tablet extended release See Rx Instructions .ROUTE .COMPLEX Qty: 180 0RF Dose Instruction: TAKE 1 TABLET BY MOUTH TWICE DAILY Rx Instructions: TAKE 1 TABLET BY MOUTH TWICE DAILY quetiapine 25 mg tablet See Rx Instructions .ROUTE .COMPLEX Qty: 90 0RF Dose Instruction: TAKE 1 TABLET BY MOUTH AT BEDTIME Rx Instructions: TAKE 1 TABLET BY MOUTH AT BEDTIME Follow-up/Referrals: Padilla Patrick MD [Primary Care Provider, Family Practice]
--- NOTE | 2025-06-10 10:16 | PC.NURSE ---
2 mg Metoprolol given Hr 136. B/P 151/101
--- NOTE | 2025-06-10 10:19 | PC.NURSE ---
3 mg Metoprolol given HR 130 B/P 150/96
--- NOTE | 2025-06-10 11:09 | PC.NURSE ---
Pt states she feels so much better. States chest pain and pressure are gone. 2lo2 removed
--- NOTE | 2025-06-10 11:10 | ECG_ITS ---
Test Date: 2025-06-10 11:13:44 Measurements Intervals [place] Rate: 71 P: 57 AL: 169 QRS: 34 QRSD: 73 T: 69 QT: 389 QTc: 423 Interpretive Statements SINUS RHYTHM WITH SINUS ARRHYTHMIA WITH OCCASIONAL SUPRAVENTRICULAR PREMATURE COMPLEXES BORDERLINE ECG Compared to ECG 06/10/2025 08:49:51 Atrial fibrillation no longer present POSSIBLE ISCHEMIA NO LONGER PRESENT Electronically Signed On 06-10-2025 11:51:32 MANAGER [employer] by Nestor Rayo D.O.
--- NOTE | 2025-06-10 11:21 | WPCEDHO ---
ED Hand Off Checklist All vitals saved:y IV Site documented:y All med administrations documented:y Triage Note Triage Note Pt states chest pain across chest 06/10/25 08:47 with SOB. Denies N/V. States has hx of fast heart rate and claims to take meds for it Allergies rofecoxib Allergy (Unknown, Verified 06/10/25 08:56) UNSURE Sulfa (Sulfonamide Antibiotics) Allergy (Unknown, Verified 06/10/25 08:56) Unknown Family History (Last Reviewed 02/20/25 @ 13:41 by Raghav Jorge MA) Mother Hypertension Father Family history of lymphoma Administered/Completed Medications Discontinued Medications Lactated Ringer's (Lr - Lactated Ringers Iv) 1,000 mls @ 999 mls/hr IV CONT .Q1H1M STA Stop: 06/10/25 09:57 Last Infusion: 06/10/25 11:09 Dose: Infused Documented By: Admin: 06/10/25 09:07 Dose: 999 mls/hr Documented By: RICH Lactated Ringer's (Lr - Lactated Ringers Iv) 1,000 mls @ 999 mls/hr IV CONT .Q1H1M STA Stop: 06/10/25 11:18 Last Admin: 06/10/25 11:11 Dose: 999 mls/hr Documented By: RICH Metoprolol Tartrate (Metoprolol Tartrate Inj 5 Mg/5 Ml Vial) 5 mg IV PUSH ONCE STA Stop: 06/10/25 08:57 Last Admin: 06/10/25 08:59 Dose: 5 mg Documented By: RICH Metoprolol Tartrate (Metoprolol Tartrate Inj 5 Mg/5 Ml Vial) 5 mg IV PUSH ONCE STA Stop: 06/10/25 09:04 Last Admin: 06/10/25 09:07 Dose: 5 mg Documented By: RICH Metoprolol Tartrate (Metoprolol Tartrate Inj 5 Mg/5 Ml Vial) 5 mg IV PUSH ONCE STA Stop: 06/10/25 09:34 Last Admin: 06/10/25 10:15 Dose: 5 mg Documented By: RICH Metoprolol Tartrate (Metoprolol Tartrate 50 Mg Tab) 50 mg PO ONCE STA Stop: 06/10/25 09:34 Last Admin: 06/10/25 09:45 Dose: 50 mg Documented By: RICH Notes 06/10/25 11:09 Nurse Note by Adia Joseph Pt states she feels so much better. States chest pain and pressure are gone. 2lo2 removed Initialized on 06/10/25 11:09 - END OF NOTE 06/10/25 10:19 Nurse Note by Adia Joseph 3 mg Metoprolol given HR 130 B/P 150/96 Initialized on 06/10/25 10:19 - END OF NOTE 06/10/25 10:16 Nurse Note by Adia Joseph 2 mg Metoprolol given Hr 136. B/P 151/101 Initialized on 06/10/25 10:16 - END OF NOTE 06/10/25 09:11 Nurse Note by Adia Joseph 3 mg Metoprolol given. HR 158 B/P 152/106 Initialized on 06/10/25 09:11 - END OF NOTE 06/10/25 09:10 Nurse Note by Adia Joseph Hr 156 2mg metoprolol given. B/P 169/109 Initialized on 06/10/25 09:10 - END OF NOTE 06/10/25 09:00 Nurse Note by Adia Joseph 3 mg metoprolol given for HR 170. B/P 160/109 Initialized on 06/10/25 09:00 - END OF NOTE 06/10/25 09:00 Nurse Note by Adia Joseph 2 mg metoprolol given for hr 190. B/P 161/96 Initialized on 06/10/25 09:00 - END OF NOTE Interventions/Assessments IV / Saline Lock, Insert Start: 06/10/25 08:43 Freq: STAT Status: Active Protocol: Document 06/10/25 08:56 CMM (Rec: 06/10/25 08:57 CMM [id number]) IV Assessment Peripheral Access Right Antecubital IV Catheter Access Initiated IV Insertion Date 06/10/25 IV Insertion Time 08:57 Catheter Gauge 18 IV Site Assessment WNL IV Care and WNL Maintenance Peripheral Access Left Antecubital IV Catheter Access Continued PA: Cardiovascular Assessment Start: 06/10/25 08:42 Freq: Status: Active Protocol: Document 06/10/25 08:55 CMM (Rec: 06/10/25 08:55 CMM [id number]) Cardiovascular Assessment Cardiovascular Chest Pain,Chest Pressure Symptoms Skin Description Normal Color PA: Respiratory Assessment Start: 06/10/25 08:42 Freq: Status: Active Protocol: Document 06/10/25 08:55 CMM (Rec: 06/10/25 08:55 CMM [id number]) Respiratory Assessment Symptoms None Effort Normal Last Vital Signs Temperature 97.5 F L 06/10/25 08:47 Pulse Rate 70 06/10/25 11:03 Respiratory Rate 24 H 06/10/25 11:03 Pulse Oximetry 99 06/10/25 11:03 Blood Pressure 140/72 06/10/25 11:03 Blood Pressure Mean 94 06/10/25 11:03 Blood Pressure Position Sitting 06/10/25 10:21 Oxygen Delivery Nasal Cannula 06/10/25 08:56 Oxygen Flow Rate 2 06/10/25 08:56 Weight 82 kg 06/10/25 08:47 Last Result - Abnormals Only [place] # (Auto) 0.7 K/mm3 (0.1-0.6) H 06/10/25 08:56 Absolute Neuts (auto) 7.0 K/mm3 (1.3-6.7) H 06/10/25 08:56 BUN 25 mg/dL (7-17) H 06/10/25 08:56 Creatinine 1.28 mg/dL (0.7-1.0) H 06/10/25 08:56 Estimated GFR 40 (59-) L 06/10/25 08:56 Glucose 137 mg/dL (65-110) H 06/10/25 08:56 AST 41 U/L (14-36) H 06/10/25 08:56 Total Protein 8.9 g/dL (6.3-8.2) H 06/10/25 08:56 Lipase 410 U/L (23-300) H 06/10/25 08:56 Most Recent Suicide Severity Rating Suicide Severity Rating NO RISK INDICATED 06/10/25 08:47
--- NOTE | 2025-06-10 12:00 | P.CONCA_ITS ---
Assessment and Plan Assessment and plan (1) Atrial fibrillation with rapid ventricular response: Code(s): I48.91 - Unspecified atrial fibrillation Status: Acute (2) Hypertension: Qualifiers: Hypertension type: primary hypertension Qualified Code(s): I10 - Essential (primary) hypertension Code(s): I10 - Essential (primary) hypertension Status: Acute Plan Assessment: -New onset AFib with RVR-troponin 0.012, 0.024, TSH within normal limits, chest x-ray negative for any cardiopulmonary pathology, initial EKG showed AFib with RVR, repeat EKG showed sinus rhythm -Hypertension -Hypokalemia Plan: She was given 50 mg of IV metoprolol in the ER followed by 50 mg p.o.. She is now back in sinus rhythm with rates in the 70s to 90s range with occasional bradycardic episodes to the 40s. Hold off on any beta-mercy or AV harika blocking agents. Chads Vasc score 2 (hypertension=1, female sex=1). Recommend Xarelto 15 mg p.o. daily (lower dose as creatinine clearance less than 50 mL/hour) for anticoagulation. Obtain TTE. No further workup if TTE is normal. Check and replace electrolytes to keep potassium greater than 4 and magnesium greater than 2. Consider event monitor at discharge to know the burden of AFib. Please arrange follow-up with cardiology in 1 month after discharge. Thank you for allowing us to participate in the care of this patient. Cardiology will sign off. Please call us with any questions. History of Present Illness History of Present Illness Consult date/time: 06/10/25 12:00 Reason For Visit: Afib RVR Narrative: 85 year old female with past medical history of hypertension, syncope, vitamin-D 2 deficiency, Alzheimer's dementia, CKD stage 3, debility, asthma GERD, depression, diverticulitis, chronic insomnia presents with chief complaints of headache and chest pain that started this morning. The symptoms lasted for about an hour before resolving. She is brought to the ER and was noted to be in A fib with RVR with rate in the 160s. She does not have a history of AFib. She was given multiple doses of IV metoprolol totaling 15 mg followed by 50 mg p.o.. She converted to sinus rhythm with heart rates in the 70s to 90s. She is however becoming bradycardic off and on to the 40s. She denies any leg swelling, recent weight gain, dizziness, lightheadedness, orthopnea, PND, presyncope, syncope. No history of falls or bleeding issues. Cardiology is consulted for further recommendations. Work up: Creatinine 1.28 (baseline 1.2) Potassium 3.5 Troponin 0.012, 0.024 EKG: AFib with RVR with rate related ST depressions Repeat EKG: Sinus rhythm with sinus arrhythmia and occasional PACs Chest x-ray: No acute cardiopulmonary pathology Review of Systems 2 Review of Systems: A complete review of systems was performed and pertinent positives are reported in the HPI. 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 Depression Chronic kidney disease, stage 3 Baseline creatinine is 1.30. History of small bowel obstruction Secondary to adhesions. History of diverticulitis GERD (gastroesophageal reflux disease) Gastritis noted on EGD in January [address] Garcia. SIRS (systemic inflammatory response syndrome) Dementia Surgical History Surgical History History of removal of pigmented skin lesion S/P ORIF (open reduction internal fixation) fracture Left wrist bee History of section, classical H/O cataract extraction X6 History of eye surgery Repair of macular hole. Status post surgical removal of malignant neoplasm of skin Excision of basal cell carcinoma from the forehead. History of surgery on left wrist With hardware. History of section X6. Status post right breast lumpectomy With benign pathology. Status post cholecystectomy Status post total hysterectomy History of laparotomy Secondary to bowel obstruction, with adhesiolysis. Family History Family History Mother Hypertension Father Family history of lymphoma Social History Social History Social History: The patient is and lives with her in [place]. 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 she designates her , Hussain, as her surrogate decision maker. She is listed as a full code. She is a lifelong nonsmoker and denies alcohol and drug abuse. She had 6 children and one . Code status full code Smoking status: Never smoker Second hand tobacco smoke exposure: Yes (intermittently) Alcohol intake: never Substance use: never Substance use type: does not use Lack of Transportation: YES Lack of Food: Never True Current Housing: I Have Housing Concerned About Future Housing: No Difficulty Paying Gas/Electric Bills: No Difficulty Paying for Meds: No Currently Unemployed: No Education: High School Diploma/GED Difficulty w/ Childcare or Family Care: No Living arrangements: with family Occupation/Education: retired Gender identity (if verbalized by the patient): Female Sexual Orientation (if Verbalized by the Patient): Straight or Heterosexual Spiritual care concerns: No Meds Home Medications and Allergies Home Medications ?Medication ?Instructions ?Recorded ?Confirmed ?Type docusate sodium 100 mg capsule 100 mg PO DAILY #90 cap s 11/12/24 06/10/25 Rx rizatriptan 10 mg tablet See Rx Instructions .Route 0 11/12/24 06/10/25 Rx .COMPLEX #14 tabs quetiapine 25 mg tablet See Rx Instructions .Route 0 03/05/25 06/10/25 Rx .COMPLEX #90 tabs Allergies Allergy/AdvReac Type Severity Reaction Status Date / Time rofecoxib Allergy Unknown UNSURE Verified 06/10/25 12:41 Sulfa (Sulfonamide Allergy Unknown Unknown Verified 06/10/25 12:41 Antibiotics) Vital Signs Vital Signs - 24 hr 06/10/25 08:47 06/10/25 08:56 06/10/25 08:59 Temperature 36.4 C L Pulse Rate 181 H 190 H Respiratory Rate 17 Blood Pressure 161/96 H Pulse Oximetry 100 100 Oxygen Delivery Room Air Nasal Cannula Oxygen Flow Rate 2 06/10/25 09:07 06/10/25 09:13 06/10/25 09:45 Temperature Pulse Rate 173 H 145 H 133 H Respiratory Rate 20 Blood Pressure 152/106 H Pulse Oximetry 97 Oxygen Delivery Oxygen Flow Rate 06/10/25 10:15 06/10/25 10:21 06/10/25 10:24 Temperature Pulse Rate 130 H 132 H 134 H Respiratory Rate 20 23 H Blood Pressure 150/96 H Pulse Oximetry 100 100 Oxygen Delivery Oxygen Flow Rate 06/10/25 10:31 06/10/25 10:32 06/10/25 10:47 Temperature Pulse Rate 125 H 129 H 137 H Respiratory Rate 23 H 17 22 H Blood Pressure 170/128 H Pulse Oximetry 100 100 99 Oxygen Delivery Oxygen Flow Rate 06/10/25 11:02 06/10/25 11:03 Temperature Pulse Rate 77 70 Respiratory Rate 22 H 24 H Blood Pressure 140/72 Pulse Oximetry 99 Oxygen Delivery Oxygen Flow Rate Exam 2 Narrative: General: Alert oriented x3, no acute distress Neck: Supple, no JVD Chest: Bilaterally clear to auscultation, no rales or rhonchi Cardiac: S1, S2 +, regular rate, regular rhythm, no murmurs or rubs Extremities: No pedal rate, no skin rash Neurologic: Alert and oriented x3, no focal neurological deficits Results Labs and Meds 06/10/25 08:56 06/10/25 08:56 Lab results: Cardiac Enzymes 06/10/25 Range/Units 08:56 AST 41 H (14-36) U/L Troponin I 0.012 (0.000-0.034) ng/mL Coagulation 06/10/25 Range/Units 08:56 PT 12.3 (11.1-14.7) Seconds APTT 25.2 (22.3-36.8) Seconds CBC 06/10/25 Range/Units 08:56 WBC 9.9 (4.5-10.0) K/mm3 RBC 4.78 (4.2-5.4) M/mm3 Hgb 14.5 (12.0-15.0) g/dL Hct 43.1 (37.0-47.0) % Plt Count 250 (150-375) k/mm3 Lymph # (Auto) 1.91 (0.9-3.2) K/mm3 [place] # (Auto) 0.7 H (0.1-0.6) K/mm3 Eos # (Auto) 0.2 (0-0.3) K/mm3 Baso # (Auto) 0.1 (0.0-0.1) K/mm3 Comprehensive Metabolic Panel 06/10/25 Range/Units 08:56 Sodium 140 (137-145) mmol/L Potassium 4.1 (3.4-5.0) mmol/L Chloride 106 (98-107) mmol/L Carbon Dioxide 26 (22-30) mmol/L BUN 25 H (7-17) mg/dL Creatinine 1.28 H (0.7-1.0) mg/dL Glucose 137 H (65-110) mg/dL Calcium 9.7 (8.4-10.2) mg/dL AST 41 H (14-36) U/L ALT 24 (6-35) U/L Alkaline Phosphatase 72 (38-126) U/L Total Protein 8.9 H (6.3-8.2) g/dL Albumin 4.8 (3.5-5.1) g/dL Intake and Output 06/09/25 06/10/25 06/10/25 23:59 07:59 15:59 Intake Total 1000 Balance 1000 Intake: IV 1000 Lactated Ringers 1,000 ml @ 999 1000 mls/hr IV CONT .Q1H1M STA Rx#: [id number] Patient Weight 06/10/25 23:59 Weight 82 kg
[2025-06-10 12:52] LABS: Troponin I 0.024 ng/mL (0.000-0.034)
--- NOTE | 2025-06-10 13:02 | P.HP_ITS ---
H&P: HPI History of Present Illness Date/Time: 06/10/25 13:02 Chief Complaint: Shortness of breath and chest pain Narrative: 85-year-old female past medical history of sundowning, Alzheimer's, hypertension, depression, CKD, stage 3 and diverticulitis presents the hospital shortness of breath and chest pain. For HPI is limited as patient has Alzheimer's. She complains of a headache and nausea. She has no other complaints at this time. She denies shortness of breath or chest pain. According to nursing the patient has been prescribed medications for Alzheimer's however the has not been giving it to her as he feels that she did needed. And that she does not have behavioral issues. Patient is extremely confused in the hospital and is constantly getting out of bed. And has a history of sundowning listed on her past medical problems. Lab work in the ED shows CBC within normal limits, INR of 0.9, BUN of 25, creatinine of 1.28 with baseline being around 1.2, GFR 40, glucose 137 AST 41, troponin 0.012 followed by 0.024, lipase of 410, chest x-ray shows no acute findings. EKG shows atrial fibrillation with RVR rate of 163. Patient received IV metoprolol 5 mg x 3 doses, 2 L of fluid and was started on p.o. metoprolol. Cardiology was consulted. Patient does not have history of AFib. Review of Systems Review of Systems: 12 systems were reviewed and are negativ e except for as per HPI. 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 Depression Chronic kidney disease, stage 3 Baseline creatinine is 1.30. History of small bowel obstruction Secondary to adhesions. History of diverticulitis GERD (gastroesophageal reflux disease) Gastritis noted on EGD in January [address] Garcia. SIRS (systemic inflammatory response syndrome) Dementia Surgical History Surgical History History of removal of pigmented skin lesion S/P ORIF (open reduction internal fixation) fracture Left wrist bee History of section, classical H/O cataract extraction X6 History of eye surgery Repair of macular hole. Status post surgical removal of malignant neoplasm of skin Excision of basal cell carcinoma from the forehead. History of surgery on left wrist With hardware. History of section X6. Status post right breast lumpectomy With benign pathology. Status post cholecystectomy Status post total hysterectomy History of laparotomy Secondary to bowel obstruction, with adhesiolysis. Family History Family History Mother Hypertension Father Family history of lymphoma Social History Social History Social History: The patient is and lives with her in [place]. 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 she designates her , Hussain, as her surrogate decision maker. She is listed as a full code. She is a lifelong nonsmoker and denies alcohol and drug abuse. She had 6 children and one . Code status full code Smoking status: Never smoker Second hand tobacco smoke exposure: Yes (intermittently) Alcohol intake: never Substance use: never Substance use type: does not use Lack of Transportation: YES Lack of Food: Never True Current Housing: I Have Housing Concerned About Future Housing: No Difficulty Paying Gas/Electric Bills: No Difficulty Paying for Meds: No Currently Unemployed: No Education: High School Diploma/GED Difficulty w/ Childcare or Family Care: No Living arrangements: with family Occupation/Education: retired Gender identity (if verbalized by the patient): Female Sexual Orientation (if Verbalized by the Patient): Straight or Heterosexual Spiritual care concerns: No Meds Home Medications and Allergies Home Medications ?Medication ?Instructions ?Recorded ?Confirmed ?Type docusate sodium 100 mg capsule 100 mg PO DAILY #90 cap s 11/12/24 06/10/25 Rx rizatriptan 10 mg tablet See Rx Instructions .Route 0 11/12/24 06/10/25 Rx .COMPLEX #14 tabs quetiapine 25 mg tablet See Rx Instructions .Route 0 03/05/25 06/10/25 Rx .COMPLEX #90 tabs albuterol sulfate 90 mcg/actuation 90 mcg inhalation . q4 prn sob and 06/10/25 06/10/25 History aerosol inhaler wheezing citalopram 10 mg tablet 10 mg PO DAILY 06/10/25 12/0 09/30 History hydralazine 25 mg tablet 25 mg PO TID 06/10/25 History irbesartan 300 1 tablet PO DAILY 06/10/25 1 08/11/24 History mg-hydrochlorothiazide 12.5 mg tablet levothyroxine 25 mcg tablet 25 mcg PO DAILY 06/10/25 1 08/11/24 History omeprazole 40 mg capsule,delayed 40 mg PO DAILY 06/10/25 History release Allergies Allergy/AdvReac Type Severity Reaction Status Date / Time rofecoxib Allergy Unknown UNSURE Verified 06/10/25 12:41 Sulfa (Sulfonamide Allergy Unknown Unknown Verified 06/10/25 12:41 Antibiotics) Vital Signs Vital Signs - 24 hr 06/10/25 08:47 06/10/25 08:56 06/10/25 08:59 Temperature 97.5 F L Pulse Rate 181 H 190 H Respiratory Rate 17 Blood Pressure 161/96 H Pulse Oximetry 100 100 Oxygen Delivery Room Air Nasal Cannula Oxygen Flow Rate 2 06/10/25 09:07 06/10/25 09:13 06/10/25 09:45 Temperature Pulse Rate 173 H 145 H 133 H Respiratory Rate 20 Blood Pressure 152/106 H Pulse Oximetry 97 Oxygen Delivery Oxygen Flow Rate 06/10/25 10:15 06/10/25 10:21 06/10/25 10:24 Temperature Pulse Rate 130 H 132 H 134 H Respiratory Rate 20 23 H Blood Pressure 150/96 H Pulse Oximetry 100 100 Oxygen Delivery Oxygen Flow Rate 06/10/25 10:31 06/10/25 10:32 06/10/25 10:47 Temperature Pulse Rate 125 H 129 H 137 H Respiratory Rate 23 H 17 22 H Blood Pressure 170/128 H Pulse Oximetry 100 100 99 Oxygen Delivery Oxygen Flow Rate 06/10/25 11:02 06/10/25 11:03 06/10/25 12:30 Temperature 97.4 F L Pulse Rate 77 70 76 Respiratory Rate 22 H 24 H 22 H Blood Pressure 140/72 153/83 H Pulse Oximetry 99 98 Oxygen Delivery Oxygen Flow Rate Exam Narrative: General: well appearing, appears stated age. HEENT: normocephalic, atraumatic. Mucous membranes moist. EOMI, PERRLA, bilateral sclera anicteric, no conjunctival injection. Neck supple without JVD, lymphadenopathy, or bruit. Respiratory: clear bilaterally. No rales/rhonic/wheezes. Cardiovascular: Regular rate and rhythm, normal S1-S2. No murmurs, rubs, or clicks. PMI is nondisplaced, capillary refill less than 3 second. Abdomen: Soft, round, no pulsatile masses, nondistended and nontender. No rebound, no guarding. Bowel sounds present to all four quadrants. No high pitch or tinkling sounds, resonant to percussion. Extremities: No cyanosis, clubbing, or edema present. Pulses are palpable 2/2. Active ROM to all four extremities. Neuro: Alert and orientated x2. PERRLA. Cranial nerves 2-12 intact without focal deficit. Skin: Warm, dry, and intact, without rash, erythema, or lesion. Psych: pleasant, cooperative, normal speech, normal affect, no hallucinations, no dysarthia Results Labs Labs: Short CBC 06/10/25 Range/Units 08:56 WBC 9.9 (4.5-10.0) K/mm3 Hgb 14.5 (12.0-15.0) g/dL Hct 43.1 (37.0-47.0) % Plt Count 250 (150-375) k/mm3 BMP 06/10/25 08:56 Sodium 140 Potassium 4.1 Chloride 106 Carbon Dioxide 26 BUN 25 H Creatinine 1.28 H Glucose 137 H Calcium 9.7 Cardiac Enzymes 06/10/25 06/10/25 Range/Units 08:56 12:19 Troponin I 0.012 0.024 D (0.000-0.034) ng/mL Liver Function 06/10/25 Range/Units 08:56 Total Bilirubin 0.6 (0.2-1.3) mg/dL AST 41 H (14-36) U/L ALT 24 (6-35) U/L Alkaline Phosphatase 72 (38-126) U/L Albumin 4.8 (3.5-5.1) g/dL Quality VTE Prophylaxis VTE prophylaxis: mechanical ordered Assessment and Plan Assessment and plan (1) Atrial fibrillation with rapid ventricular response: Code(s): I48.91 - Unspecified atrial fibrillation Status: Acute Assessment and Plan: Cardiology consulted Patient is now sinus rhythm to sinus Panfilo after IV metoprolol and p.o. will hold off on further beta-blockers at this time Xarelto 15 mg daily Troponins flat Echo pending Replace electrolytes Possible Holter monitor at discharge Follow-up in Cardiology with 1 month (2) Alzheimer's disease with behavioral disturbance: Code(s): G30.9 - Alzheimer's disease, unspecified; F02.81 - Dementia in other diseases classified elsewhere, unspecified severity, with behavioral disturbance Status: Acute Assessment and Plan: Continue Seroquel at night IM Zyprexa x1 Zyprexa p.r.n. With patient closer to the nurse's station for closer monitoring (3) Hypertension: Qualifiers: Hypertension type: primary hypertension Qualified Code(s): I10 - Essential (primary) hypertension Code(s): I10 - Essential (primary) hypertension Status: Acute Assessment and Plan: Continue hydrochlorothiazide and hydralazine (4) Hypothyroidism: Qualifiers: Hypothyroidism type: acquired Qualified Code(s): E03.9 - Hypothyroidism, unspecified Code(s): E03.9 - Hypothyroidism, unspecified Status: Acute Assessment and Plan: Continue levothyroxine (5) Chronic kidney disease, stage 3: Qualifiers: Chronic kidney disease stage 3 subtype: stage 3a (GFR 45-59) Qualified Code(s): N18.31 - Chronic kidney disease, stage 3a Code(s): N18.3 - Chronic kidney disease, stage 3 (moderate) Status: Acute Assessment and Plan: Kidney function at baseline BMP in a.m. Prior Studies I have reviewed the following patient records and this information was taken into consideration when formulating the assessment and plan.: previous labs, previous ER visits and previous hospitalizations Time Spent with Patient Time with patient: less than 45 minutes Hospitalist MIPS Advance Care Plan I have confirmed that the patient's Advanced Care Plan is present, code status is documented, or surrogate decision maker is listed in patient medical record.: Yes Medication Reconciliation I have utilized all available resources to obtain, update and review the patients current medications (includes all prescriptions, OTC, herbals, cannabis, and nutritional supplements).: Yes
--- NOTE | 2025-06-10 15:34 | ECG_ITS ---
Test Date: 2025-06-10 15:45:01 Measurements Intervals Tensed Rate: 86 P: 38 MT: 174 QRS: 47 QRSD: 68 T: 79 QT: 403 QTc: 482 Interpretive Statements SINUS RHYTHM WITH SINUS ARRHYTHMIA WITH OCCASIONAL SUPRAVENTRICULAR PREMATURE COMPLEXES AND NON-CONDUCTED SUPRAVENTRICULAR COMPLEX BORDERLINE ECG Compared to ECG 06/10/2025 11:13:44 NO SIGNIFICANT CHANGE Electronically Signed On 06-10-2025 19:30:01 HEALTH RECORD TECHNICIAN by Nestor Rayo D.O.
[2025-06-10 15:43] LABS: Troponin I 0.029 ng/mL (0.000-0.034)
[2025-06-10] MEDS: RIVAROXABAN 15 MG TABLET PO (17:34)
[2025-06-10] MEDS: DOCUSATE SODIUM 100 MG CAPSULE PO (17:34)
[2025-06-10] MEDS: PANTOPRAZOLE 40 MG TABLET PO (17:38)
[2025-06-10] MEDS: CALCIUM CARBONATE (TUMS) 500 MG (200 MG ELEMENTAL) PO (17:38)
[2025-06-10] MEDS: OLANZapine 5 MG, WATER, STERILE FOR INJECTION 2.1 ML IM (21:55)
[2025-06-10] MEDS: TRIMETHOBENZAMIDE HCL 200 MG/2 ML VIAL IM (21:57)
[2025-06-11] VITALS (10 sets, daily range): BP systolic 132–153; BP diastolic 50–118; PULSE 45–60; RESP 16–18; TEMP 36.5–36.8; O2SAT 96–99
--- NOTE | 2025-06-11 | ECHO_ITS ---
Patient Info Name: Theodora Pineda Age: 85 years : 1940 Gender: Female Ht: 64 in Wt: 184 lbs BSA: 1.97 m2 HR: 57 bpm BP: 138 / 118 mmHg Technical Quality: Fair Exam Date: 06/11/2025 9:00 AM Patient Status: I Admit Date: 06/10/2025 Exam Type: CA echo doppler color flow Complete two-dimensional, color flow and Doppler transthoracic echocardiogram is performed. Staff Referring Physician: Marcelina Echeverria Building Maintenance Repairer: Rafat Braun III Attending Provider: Janet Geller MD Summary 1. Complete two-dimensional, color flow and Doppler transthoracic echocardiogram is performed. 2. There is normal biventricular size and systolic function. 3. There are no significant valvular abnormalities. Left Ventricle The left ventricle is normal in size and systolic function. The left ventricular ejection fraction is visually estimated to be 65-70%. Right Ventricle The right ventricle is normal in size and systolic function. Left Atria The left atrium is normal size. Right Atria The right atrium is normal size. Atrial Septum Atrial septum is not well visualized. Aortic Valve The aortic valve is trileaflet and opens well. There is no aortic regurgitation. Pulmonic Valve The pulmonic valve is not well visualized. There is trace pulmonic valve regurgitation. Mitral Valve The mitral valve is normal. There is no mitral regurgitation. Tricuspid Valve Tricuspid valve is grossly normal. Pericardium/Pleural Pericardium is normal in appearance with no evidence for significant pericardial effusion. Inferior Vena Cava Inferior vena cava is not well visualized. Aorta The aortic root at the level of the sinus of Valsalva measures 2.8 cm in diameter. Left Ventricular Outflow Tract Name Value Normal LVOT 2D LVOT Diameter 2.2 cm LVOT Doppler LVOT Peak Velocity 119 cm/s LVOT Peak Gradient 6 mmHg LVOT Mean Gradient 3 mmHg LVOT VTI 28 cm LVOT VTI/AV VTI Ratio 1.1 LVOT Stroke Volume 106 ml LVOT CO 5.3 l/min LVOT CI 2.7 l/min/m2 Pulmonic Valve Name Value Normal PV Doppler PV Peak Velocity 72 cm/s PV Peak Gradient 2 mmHg PV Mean Gradient 1 mmHg Mitral Valve Name Value Normal MV Doppler MV Peak Gradient 4 mmHg MV Mean Gradient 1 mmHg MV Area (Cont Eq VTI) 3.2 cm2 MV Diastolic Function MV E Peak Velocity 98 cm/s MV A Peak Velocity 93 cm/s MV E/A 1.0 MV Decel Time (PW) 229 ms MV Annular TDI MV E/e' (Septal) 14.3 MV E/e' (Lateral) 14.7 MV E/e' (Average) 14.5 Tricuspid Valve Name Value Normal TV Annular TDI TV Lateral Nancy s' Velocity 12.7 cm/s >=9.5 Aortic Valve Name Value Normal AV Doppler AV Peak Velocity 115 cm/s AV Peak Gradient 5 mmHg AV Mean Gradient 3 mmHg AV VTI 26 cm AV Area (Cont Eq VTI) 4.1 cm2 >=3.0 AV Area (Cont Eq Darian) 3.9 cm2 AV DI (Darian) 1.04 AV Regurgitation 2D LVOT Area 3.7 cm2 Ventricles Name Value Normal LV Dimensions 2D/MM IVS Diastolic Thickness (2D) 1.1 cm 0.6-1.0 LVID Diastole (2D) 3.8 cm 3.8-5.2 LVIW Diastolic Thickness (2D) 1.2 cm 0.6-0.9 LVID Systole (2D) 2.7 cm 2.2-3.5 LVOT Diameter 2.2 cm LV Mass (2D Cubed) 148.58 g 67.00-162.00 LV Mass Index (2D Cubed) 75 g/m2 43-95 Relative Wall Thickness (2D) 0.66 <=0.42 LV Fractional Shortening/Ejection Fraction 2D/MM LV Fractional Shortening (2D) 30 % 27-45 LV EF (2D Teichholz) 57 % LV Diastolic Volume (4C MOD) 42 ml LV EF (4C MOD) 67 % LV Diastolic Volume (2C MOD) 62 ml LV EF (2C MOD) 80 % LV Diastolic Volume (BP MOD) 52 ml 46-106 LV Diastolic Volume Index (BP MOD) 26 ml/m2 29-61 LV Systolic Volume (BP MOD) 13 ml 14-42 LV Systolic Volume Index (BP MOD) 7 ml/m2 8-24 LV EF (BP MOD) 74 % 54-74 LV Diastolic Length (4C) 6.1 cm LV Systolic Length (4C) 5.0 cm LV Stroke Volume (4C MOD) 28 ml Atria Name Value Normal LA Dimensions LA Volume (4C A-L) 30 ml LA Volume (BP A-L) 52 ml RA Dimensions RA Systolic Major [place] Length (4C) 5.0 cm 2.2-2.8 RA Area (4C) 14.5 cm2 <=18.0 Report Signatures
[2025-06-11] MEDS: OLANZapine 2.5 MG, WATER, STERILE FOR INJECTION 2.1 ML IM (03:02)
[2025-06-11 04:46] LABS: Hematocrit 33.7 % (37.0-47.0); Hemoglobin 11.2 g/dL (12.0-15.0); Immature Granulocyte Percent A 0.2 % (0-0.5); Lymphocytes Absolute Auto 1.93 K/mm3 (0.9-3.2); Mean Corpuscular HGB Conc 33.2 g/dl (32-36); Mean Corpuscular Hemoglobin 30.1 pg (26-34); Mean Corpuscular Volume 90.6 fl (80-100); Nucleated Red Blood Cells Absolute Auto 0.000 K/mm3 (0.0-0.012); Nucleated Red Blood Cells Perc 0.0 % (0.0-0.2); Platelet Count Result 209 k/mm3 (150-375); Red Blood Count 3.72 M/mm3 (4.2-5.4); White Blood Count 8.8 K/mm3 (4.5-10.0)
[2025-06-11 05:03] LABS: Anion Gap 3 mmol/L (4-12); Blood Urea Nitrogen 25 mg/dL (7-17); Calcium 9.0 mg/dL (8.4-10.2); Carbon Dioxide 27 mmol/L (22-30); Chloride 107 mmol/L (98-107); Estimated CRCL calculation 31 ml/min; Estimated Glomerular Filt Rate 39; Glucose 106 mg/dL (65-110); Potassium 3.8 mmol/L (3.4-5.0); Sodium 137 mmol/L (137-145)
[2025-06-11] MEDS: IRBESARTAN 150 MG TABLET 300 MG PO (09:51)
[2025-06-11] MEDS: PANTOPRAZOLE 40 MG TABLET PO (09:52)
[2025-06-11] MEDS: CITALOPRAM HYDROBROMIDE 10 MG TABLET PO (09:52)
[2025-06-11] MEDS: DOCUSATE SODIUM 100 MG CAPSULE PO (09:52)
--- NOTE | 2025-06-11 16:06 | P.DS_ITS ---
DS: Admitting Diagnosis Discharge Date 06/11/25 Admitting Diagnosis Shortness of breath and chest pain DS: Discharge Diagnosis Discharge Diagnosis (1) Atrial fibrillation with rapid ventricular response: Code(s): I48.91 - Unspecified atrial fibrillation Status: Acute Assessment and Plan: Cardiology consulted Patient is now sinus rhythm to sinus Panfilo after IV metoprolol and p.o. will hold off on further beta-blockers at this time Xarelto 15 mg daily Troponins flat Echo pending Replace electrolytes Possible Holter monitor at discharge Follow-up in Cardiology with 1 month (2) Alzheimer's disease with behavioral disturbance: Code(s): G30.9 - Alzheimer's disease, unspecified; F02.81 - Dementia in other diseases classified elsewhere, unspecified severity, with behavioral disturbance Status: Acute Assessment and Plan: Continue Seroquel at night IM Zyprexa x1 Zyprexa p.r.n. With patient closer to the nurse's station for closer monitoring (3) Hypertension: Qualifiers: Hypertension type: primary hypertension Qualified Code(s): I10 - Essential (primary) hypertension Code(s): I10 - Essential (primary) hypertension Status: Acute Assessment and Plan: Continue hydrochlorothiazide and hydralazine (4) Hypothyroidism: Qualifiers: Hypothyroidism type: acquired Qualified Code(s): E03.9 - Hypothyroidism, unspecified Code(s): E03.9 - Hypothyroidism, unspecified Status: Acute Assessment and Plan: Continue levothyroxine (5) Chronic kidney disease, stage 3: Qualifiers: Chronic kidney disease stage 3 subtype: stage 3a (GFR 45-59) Qualified Code(s): N18.31 - Chronic kidney disease, stage 3a Code(s): N18.3 - Chronic kidney disease, stage 3 (moderate) Status: Acute Assessment and Plan: Kidney function at baseline BMP in a.m. DS: Summary Hospital Course Hospital Course: 85 y/o female presented with new onset A Fib RVR in the ER patient was given 50mg of IV metoprolol and followed 50mg PO which did help patient converted NSR, she did not any elevated tropes, was seen by the fuel oil truck driver patient HR was trending down, the fuel oil truck driver recommend to hold BB for now. recommended xarelto 15mg PO qd and event monitor, to follow up in the cardiology clinic in the month, patient is her baseline and clinically sable, will discharge home today. Time Spent with Patient Time attestation: Total time spent providing and/or coordinating discharge services: DS: Data Data Completed and Pending Labs on day of discharge: Labs from last 24 hours 06/11/25 04:14 WBC 8.8 RBC 3.72 L Hgb 11.2 L D Hct 33.7 L MCV 90.6 MCH 30.1 MCHC 33.2 RDW 12.6 Plt Count 209 MPV 9.1 Immature Gran % (Auto) 0.2 Neut % (Auto) 69.4 Lymph % (Auto) 22.0 [place] % (Auto) 7.4 Eos % (Auto) 0.7 Baso % (Auto) 0.3 Lymph # (Auto) 1.93 [place] # (Auto) 0.7 H Eos # (Auto) 0.1 Baso # (Auto) 0.0 Abs Immat Gran (auto) 0.02 Absolute Neuts (auto) 6.1 Absolute Nucleated RBC 0.000 Nucleated RBC % 0.0 Sodium 137 Potassium 3.8 Chloride 107 Carbon Dioxide 27 Anion Gap 3 L BUN 25 H Creatinine 1.30 H Estim Creat Clear Calc 31 Estimated GFR 39 L Glucose 106 Calcium 9.0 Discharge Plan Discharge Attending physician on discharge: Janet Geller Consulting providers: Yessy Madrid; Mayela Vaughn; Gerald Loya; Nestor Rayo; Vicente Rayo Discharging Clinician: Janet Geller Patient Disposition: Home Activity: as tolerated Diet: heart healthy Discharge Instructions: patient to follow up with primary care provider and her cardiology as soon as possible, if any symptoms redevelop to go to nearest ER. Patient Instructions: Antibiotic Form, Chest Pain (GEN), Alzheimer Disease (GEN), Dementia (GEN) Patient Language: Bruneian Stand Alone Forms: General Discharge Information Follow-up/Referrals: Padilla Patrick MD [Primary Care Provider, Family Practice] Yessy Madrid MD [Physician, Cardiology] Discharge Medications: New calcium carbonate 500 mg calcium (1,250 mg) Tablet,Chewable 200 mg PO Q6H PRN (Reason: Indigestion) Qty: 30 0RF docusate sodium 100 mg Capsule 100 mg PO BID Qty: 30 0RF Xarelto 15 mg Tablet 15 mg PO DAILY@1700 Qty: 30 0RF Continued docusate sodium 100 mg capsule 100 mg PO DAILY Qty: 90 1RF rizatriptan 10 mg tablet See Rx Instructions .ROUTE .COMPLEX Qty: 14 0RF Dose Instruction: TAKE 1 TABLET BY MOUTH DAILY NEEDED FOR MIGRAINE HEADACHE. MAY REPEAT IN 2 HOURS. MAXIMUM OF 3 TABLETS IN 24 HOURS Rx Instructions: TAKE 1 TABLET BY MOUTH DAILY NEEDED FOR MIGRAINE HEADACHE. MAY REPEAT IN 2 HOURS. MAXIMUM OF 3 TABLETS IN 24 HOURS albuterol sulfate 90 mcg/actuation HFA aerosol inhaler 90 mcg INHALATION .q4 prn Rx Instructions: one puff inhaled every 4 hours as needed for sob and wheezing citalopram 10 mg tablet 10 mg PO DAILY hydralazine 25 mg tablet 25 mg PO TID irbesartan-hydrochlorothiazide 300-12.5 mg tablet 1 tablet PO DAILY Rx Instructions: irbesartan 300mg-hydrochlorothiazide 12.5mg tab levothyroxine 25 mcg tablet 25 mcg PO DAILY omeprazole 40 mg capsule,delayed release(DR/EC) 40 mg PO DAILY quetiapine 25 mg tablet See Rx Instructions .ROUTE .COMPLEX Qty: 90 0RF Dose Instruction: TAKE 1 TABLET BY MOUTH AT BEDTIME Rx Instructions: TAKE 1 TABLET BY MOUTH AT BEDTIME Date of admission: 06/10/25 10:08 Primary Care Provider: Padilla Patrick Admitting Provider: Janet Geller Attending physician on admission: Janet Geller Condition: Improved
== END 2025-06-11 16:29 | disposition home or self-care (01) ==
LOC: ANHED 11:19 → ANHIMU 11:44
PROVIDERS: Nurse Practitioner Gerontology; Admitting Provider Family Medicine; Emergency Provider Emergency Medicine; PCP Family Medicine; Visit Provider Family Medicine
DX: I48.91 Unspecified atrial fibrillation (principal); I13.10 Hypertensive heart and chronic kidney disease without heart failure, with stage 1 through stage 4 chronic kidney disease, or unspecified chronic kidney disease; N18.31 Chronic kidney disease, stage 3a; G30.9 Alzheimer's disease, unspecified; F02.818 Dementia in other diseases classified elsewhere, unspecified severity, with other behavioral disturbance; G47.01 Insomnia due to medical condition; E03.9 Hypothyroidism, unspecified; J45.909 Unspecified asthma, uncomplicated; K21.9 Gastro-esophageal reflux disease without esophagitis; R51.9 Headache, unspecified; E53.8 Deficiency of other specified B group vitamins; E55.9 Vitamin D deficiency, unspecified; Z85.828 Personal history of other malignant neoplasm of skin; Z90.49 Acquired absence of other specified parts of digestive tract; Z82.49 Family history of ischemic heart disease and other diseases of the circulatory system; Z80.7 Family history of other malignant neoplasms of lymphoid, hematopoietic and related tissues
CPT/HCPCS: 36415; 71046; 80048; 80053; 83690; 84484; 85025; 85610; 85730; 93005; 93306; 96361; 96372; 96374; 96375; 96376; 99285; A9270; G0378; J0616; J2359; J3250; J7120